=== PATIENT | male | born 1960 | race Caucasian/White ===

== ENCOUNTER 2020-09-20 11:31 | Inpatient (IN) | payer BC ==
[2020-09-20] MEDS ORDERED: ACETAMINOPHEN TAB 500 MG TAB PO STA (11:45)
--- NOTE | 2020-09-20 12:13 | ED ---
Weakness HPI - General Chief complaint: Weakness Stated complaint: Fall, Covid Symptoms Time Seen by Provider: 09/20/20 11:31 Source: patient, EMS, RN notes reviewed Mode of arrival: EMS - History of Present Illness Initial comments: This is a 60-year-old male was brought in by EMS today weakness that has been going on for 3 days also he follow-up of his toilet to the right side today. He denies any loss of consciousness or injury. He just generally feels weak he was found to have elevated temperature upon arrival. He denies any rhinorrhea earaches sore throat cough phlegm production dysuria hematuria. MD Complaint: generalized weakness - Related Data Home Medications Medication Instructions Recorded Confirmed Benazepril HCl [Lotensin] 40 mg PO DAILY 09/20/20 09/20/20 Metoprolol Tartrate [Lopressor] 50 mg PO DAILY 09/20/20 09/20/20 amLODIPine [Norvasc] 10 mg PO DAILY 09/20/20 09/20/20 glyBURIDE/METFORMIN HCL 1 tab PO QID 09/20/20 09/20/20 [Glucovance 2.5-500 mg] Allergies Allergy/AdvReac Type Severity Reaction Status Date / Time No Known Allergies Allergy Verified 09/20/20 12:44 Review of Systems ROS Statement: Those systems with pertinent positive or pertinent negative responses have been documented in the HPI. ROS Other: All systems not noted in ROS Statement are negative. Past Medical History Past Medical History: Diabetes Mellitus, Hyperlipidemia, Hypertension History of Any Multi-Drug Resistant Organisms: None Reported Past Surgical History: Appendectomy, Orthopedic Surgery Past Psychological History: No Psychological Hx Reported Smoking Status: Never smoker Past Alcohol Use History: None Reported Past Drug Use History: Marijuana General Exam - General Exam Comments Initial Comments: This is a well-developed well-nourished awake alert oriented 3 male General appearance: alert, in no apparent distress Head exam: Present: atraumatic, normocephalic, normal inspection Eye exam: Present: normal appearance, PERRL, EOMI. Absent: scleral icterus, conjunctival injection, periorbital swelling ENT exam: Present: mucous membranes dry Neck exam: Present: normal inspection. Absent: tenderness, meningismus, lymphadenopathy Respiratory exam: Present: normal lung sounds bilaterally. Absent: respiratory distress, wheezes, rales, rhonchi, stridor Cardiovascular Exam: Present: regular rate, normal rhythm, normal heart sounds. Absent: systolic murmur, diastolic murmur, rubs, gallop, clicks GI/Abdominal exam: Present: soft, normal bowel sounds. Absent: distended, tenderness, guarding, rebound, rigid Extremities exam: Present: normal inspection, full ROM, normal capillary refill. Absent: tenderness, pedal edema, joint swelling, calf tenderness Back exam: Present: normal inspection Neurological exam: Present: alert, oriented X3, CN II-XII intact Psychiatric exam: Present: normal affect, normal mood Skin exam: Present: warm, dry, intact, normal color. Absent: rash Course Vital Signs 09/20/20 09/20/20 09/20/20 11:38 12:30 13:00 Temperature 103.1 F H Pulse Rate 97 89 87 Respiratory 18 16 18 Rate Blood Pressure 149/68 146/70 136/73 O2 Sat by Pulse 96 93 L 94 L Oximetry 09/20/20 13:50 Temperature 100.3 F H Pulse Rate Respiratory Rate Blood Pressure O2 Sat by Pulse Oximetry Medical Decision Making - Medical Decision Making Patient does demonstrate clinical evidence of Covid 19. He does also have chronic anemia he did recently have a blood transfusion at another facility. No reports of any bleeding at this time. Patient will be admitted did discuss case with Dr. Loredo who did come see the patient in the emergency department. - Lab Data Result diagrams: 09/20/20 11:50 09/20/20 11:50 Lab Results 09/20/20 09/20/20 09/20/20 Range/Units 11:50 11:50 11:50 WBC 3.1 L (3.8-10.6) k/uL RBC 1.75 L (4.30-5.90) m/uL Hgb 7.3 L (13.0-17.5) gm/dL Hct 20.6 L (39.0-53.0) % MCV 117.9 H (80.0-100.0) fL MCH 41.8 H (25.0-35.0) pg MCHC 35.4 (31.0-37.0) g/dL RDW 17.6 H (11.5-15.5) % Plt Count 116 L (150-450) k/uL MPV 7.7 Neutrophils % 69 % Lymphocytes % 27 % Monocytes % 2 % Eosinophils % 0 % Basophils % 1 % Neutrophils # 2.1 (1.3-7.7) k/uL Lymphocytes # 0.9 L (1.0-4.8) k/uL Monocytes # 0.1 (0-1.0) k/uL Eosinophils # 0.0 (0-0.7) k/uL Basophils # 0.0 (0-0.2) k/uL Manual Slide Review Performed Poikilocytosis (manual Present Anisocytosis Slight Macrocytosis Marked A PT 10.0 (9.0-12.0) sec INR 1.0 (<1.2) APTT 28.9 (22.0-30.0) sec D-Dimer 4.00 H (<0.60) mg/L FEU Sodium 137 (137-145) mmol/L Potassium 4.0 (3.5-5.1) mmol/L Chloride 103 (98-107) mmol/L Carbon Dioxide 27 (22-30) mmol/L Anion Gap 7 mmol/L BUN 25 H (9-20) mg/dL Creatinine 0.91 (0.66-1.25) mg/dL Est GFR (CKD-EPI)AfAm >90 (>60 ml/min/1.73 sqM) Est GFR (CKD-EPI)NonAf >90 (>60 ml/min/1.73 sqM) Glucose 132 H (74-99) mg/dL Plasma Lactic Acid Ryne (0.7-2.0) mmol/L Calcium 8.6 (8.4-10.2) mg/dL Magnesium 1.7 (1.6-2.3) mg/dL Total Bilirubin 1.7 H (0.2-1.3) mg/dL AST 50 (17-59) U/L ALT 29 (4-49) U/L Alkaline Phosphatase 61 (38-126) U/L Lactate Dehydrogenase 2789 H (313-618) U/L Creatine Kinase 111 (55-170) U/L Troponin I (0.000-0.034) ng/mL C-Reactive Protein 79.3 H (<10.0) mg/L Total Protein 6.9 (6.3-8.2) g/dL Albumin 3.9 (3.5-5.0) g/dL Influenza Type A RNA (Not Detectd) Influenza Type B (PCR) (Not Detectd) 09/20/20 09/20/20 09/20/20 Range/Units 11:50 11:50 11:50 WBC (3.8-10.6) k/uL RBC (4.30-5.90) m/uL Hgb (13.0-17.5) gm/dL Hct (39.0-53.0) % MCV (80.0-100.0) fL MCH (25.0-35.0) pg MCHC (31.0-37.0) g/dL RDW (11.5-15.5) % Plt Count (150-450) k/uL MPV Neutrophils % % Lymphocytes % % Monocytes % % Eosinophils % % Basophils % % Neutrophils # (1.3-7.7) k/uL Lymphocytes # (1.0-4.8) k/uL Monocytes # (0-1.0) k/uL Eosinophils # (0-0.7) k/uL Basophils # (0-0.2) k/uL Manual Slide Review Poikilocytosis (manual Anisocytosis Macrocytosis PT (9.0-12.0) sec INR (<1.2) APTT (22.0-30.0) sec D-Dimer (<0.60) mg/L FEU Sodium (137-145) mmol/L Potassium (3.5-5.1) mmol/L Chloride (98-107) mmol/L Carbon Dioxide (22-30) mmol/L Anion Gap mmol/L BUN (9-20) mg/dL Creatinine (0.66-1.25) mg/dL Est GFR (CKD-EPI)AfAm (>60 ml/min/1.73 sqM) Est GFR (CKD-EPI)NonAf (>60 ml/min/1.73 sqM) Glucose (74-99) mg/dL Plasma Lactic Acid Ryne 1.3 (0.7-2.0) mmol/L Calcium (8.4-10.2) mg/dL Magnesium (1.6-2.3) mg/dL Total Bilirubin (0.2-1.3) mg/dL AST (17-59) U/L ALT (4-49) U/L Alkaline Phosphatase (38-126) U/L Lactate Dehydrogenase (313-618) U/L Creatine Kinase (55-170) U/L Troponin I 0.066 H* (0.000-0.034) ng/mL C-Reactive Protein (<10.0) mg/L Total Protein (6.3-8.2) g/dL Albumin (3.5-5.0) g/dL Influenza Type A RNA Not Detected (Not Detectd) Influenza Type B (PCR) Not Detected (Not Detectd) - EKG Data -: EKG Interpreted by Me EKG shows normal: sinus rhythm EKG Comments: Sinus rhythm a 95. Interval 166 QRS duration 136 QT since QTC 406/510 red bundle-branch block pattern - Radiology Data Radiology results: report reviewed (Imaging reviewed evidence of groundglass appearance consistent with covid 19 evidence of pulmonary embolism), image reviewed Disposition Clinical Impression: Viral syndrome, Febrile illness, acute, Chronic anemia, Elevated troponin I level, Generalized weakness Disposition: ADMITTED IP TO THIS [facility] Condition: Fair Referrals: Yrn Grider MD [Primary Care Provider] - 1-2 days
[2020-09-20 12:19] LABS: ALT 29 U/L (4-49); AST 50 U/L (17-59); African American GFR (CKD) >90 (>60 ml/min/1.73 sqM); Albumin 3.9 g/dL (3.5-5.0); Alkaline Phosphatase 61 U/L (38-126); Anion Gap 7 mmol/L; Blood Urea Nitrogen 25 mg/dL (9-20); C Reactive Protein 79.3 mg/L (<10.0); Calcium 8.6 mg/dL (8.4-10.2); Carbon Dioxide 27 mmol/L (22-30); Chloride 103 mmol/L (98-107); Creatine Kinase 111 U/L (55-170); Glucose 132 mg/dL (74-99); Magnesium 1.7 mg/dL (1.6-2.3); Non-African American GFR(CKD) >90 (>60 ml/min/1.73 sqM); Sodium 137 mmol/L (137-145); Total Bilirubin 1.7 mg/dL (0.2-1.3); Total Protein 6.9 g/dL (6.3-8.2)
--- NOTE | 2020-09-20 12:21 | XR ---
EXAMINATION TYPE: XR chest 1V portable DATE OF EXAM: 09/20/2020 COMPARISON: NONE HISTORY: Shortness of breath and weakness, suspected covid pneumonia TECHNIQUE: Single AP portable frontal upright view of the chest is obtained. FINDINGS: There is chronic parenchymal change bilaterally. Present without suspicious focal air spac e opacity, pleural effusion, or pneumothorax seen. The cardiac silhouette size is upper limits of no rmal with atherosclerotic change aortic knob. The osseous structures are intact. Overlying EKG lead s are present. IMPRESSION: Chronic changes without acute infiltrate identified.
[2020-09-20 12:30] LABS: LDH 2789 U/L (313-618)
[2020-09-20 12:32] LABS: Anisocytosis Slight; Basophils % (A) 1 %; Eosinophils % (A) 0 %; HCT 20.6 % (39.0-53.0); HGB 7.3 gm/dL (13.0-17.5); Lymphocytes # (A) 0.9 k/uL (1.0-4.8); Lymphocytes % (A) 27 %; MCH 41.8 pg (25.0-35.0); MCHC 35.4 g/dL (31.0-37.0); MCV 117.9 fL (80.0-100.0); Macrocytosis Marked; Mean Platelet Volume 7.7; Monocytes # (A) 0.1 k/uL (0-1.0); Monocytes % (A) 2 %; Neutrophils # (A) 2.1 k/uL (1.3-7.7); Neutrophils % (A) 69 %; Platelet Count 116 k/uL (150-450); RBC 1.75 m/uL (4.30-5.90); RDW 17.6 % (11.5-15.5); WBC 3.1 k/uL (3.8-10.6)
[2020-09-20 12:34] LABS: Partial Thromboplastin Time 28.9 sec (22.0-30.0)
[2020-09-20 13:03] LABS: Poikilocytosis (M) Present
--- NOTE | 2020-09-20 13:50 | CT ---
EXAMINATION TYPE: CT angio chest DATE OF EXAM: 09/20/2020 1:37 PM COMPARISON: Chest x-ray earlier today HISTORY: Elevated D dimer shortness of breath. CT DLP: 449.5 mGycm Automated exposure control for dose reduction was used. CONTRAST: CTA scan of the thorax is performed with IV Contrast, patient injected with 77 mL of Isovue 370, pulm onary embolism protocol. MIP images are created and reviewed. FINDINGS: LUNGS: Less well seen on x-ray versus CT, there are multifocal areas of groundglass opacity throughou t the right lower lobe with additional involvement of the central right mid lung and to lesser degree the right upper lobe. There is more prominent multifocal areas of groundglass opacity in the left up per to midlungS. No pleural effusion or pneumothorax seen bilaterally. No suspicious masses. MEDIASTINUM: There is satisfactory enhancement of the pulmonary artery and its branches, there is no CT evidence for pulmonary embolism. Prominent bilateral hilar lymph nodes. Prominent mediastinal lymp h nodes including elongated 3.0 x 1.0 cm subcarinal lymph node axial image 67. Severe three-vessel co ronary artery calcification. No thoracic aortic aneurysm or dissection. Bovine type arch which is nor mal variant. No pericardial effusion is seen. OTHER: Liver is diffusely low dense consistent with fatty infiltration. Large bridging osteophytes in thoracic spine noted with disc space preservation, correlate for DISH. IMPRESSION: 1. No CT evidence for acute pulmonary embolism. 2. Multifocal small areas of groundglass opacity bilaterally consistent with covid 19 infection not w ell seen on x-ray. Abnormal thoracic adenopathy presumed reactive.
[2020-09-20] MEDS ORDERED: PNEUMONIA PROTOCOL UTILIZED 1 EACH MISC PO PRN (14:25)
[2020-09-20] MEDS ORDERED: ACETAMINOPHEN TAB 325 MG TAB PO PRN (14:25)
[2020-09-20] MEDS ORDERED: NALOXONE 0.4 MG/ML 1 ML VIAL IV PRN (14:25)
--- NOTE | 2020-09-20 14:25 | ED ---
Medical Decision Making - Lab Data Result diagrams: 09/20/20 11:50 09/20/20 11:50 Lab Results 09/20/20 09/20/20 09/20/20 Range/Units 11:50 11:50 11:50 WBC 3.1 L (3.8-10.6) k/uL RBC 1.75 L (4.30-5.90) m/uL Hgb 7.3 L (13.0-17.5) gm/dL Hct 20.6 L (39.0-53.0) % MCV 117.9 H (80.0-100.0) fL MCH 41.8 H (25.0-35.0) pg MCHC 35.4 (31.0-37.0) g/dL RDW 17.6 H (11.5-15.5) % Plt Count 116 L (150-450) k/uL MPV 7.7 Neutrophils % 69 % Lymphocytes % 27 % Monocytes % 2 % Eosinophils % 0 % Basophils % 1 % Neutrophils # 2.1 (1.3-7.7) k/uL Lymphocytes # 0.9 L (1.0-4.8) k/uL Monocytes # 0.1 (0-1.0) k/uL Eosinophils # 0.0 (0-0.7) k/uL Basophils # 0.0 (0-0.2) k/uL Manual Slide Review Performed Poikilocytosis (manual Present Anisocytosis Slight Macrocytosis Marked A PT 10.0 (9.0-12.0) sec INR 1.0 (<1.2) APTT 28.9 (22.0-30.0) sec D-Dimer 4.00 H (<0.60) mg/L FEU Sodium 137 (137-145) mmol/L Potassium 4.0 (3.5-5.1) mmol/L Chloride 103 (98-107) mmol/L Carbon Dioxide 27 (22-30) mmol/L Anion Gap 7 mmol/L BUN 25 H (9-20) mg/dL Creatinine 0.91 (0.66-1.25) mg/dL Est GFR (CKD-EPI)AfAm >90 (>60 ml/min/1.73 sqM) Est GFR (CKD-EPI)NonAf >90 (>60 ml/min/1.73 sqM) Glucose 132 H (74-99) mg/dL Plasma Lactic Acid Ryne (0.7-2.0) mmol/L Calcium 8.6 (8.4-10.2) mg/dL Magnesium 1.7 (1.6-2.3) mg/dL Total Bilirubin 1.7 H (0.2-1.3) mg/dL AST 50 (17-59) U/L ALT 29 (4-49) U/L Alkaline Phosphatase 61 (38-126) U/L Lactate Dehydrogenase 2789 H (313-618) U/L Creatine Kinase 111 (55-170) U/L Troponin I (0.000-0.034) ng/mL C-Reactive Protein 79.3 H (<10.0) mg/L Total Protein 6.9 (6.3-8.2) g/dL Albumin 3.9 (3.5-5.0) g/dL Influenza Type A RNA (Not Detectd) Influenza Type B (PCR) (Not Detectd) 09/20/20 09/20/20 09/20/20 Range/Units 11:50 11:50 11:50 WBC (3.8-10.6) k/uL RBC (4.30-5.90) m/uL Hgb (13.0-17.5) gm/dL Hct (39.0-53.0) % MCV (80.0-100.0) fL MCH (25.0-35.0) pg MCHC (31.0-37.0) g/dL RDW (11.5-15.5) % Plt Count (150-450) k/uL MPV Neutrophils % % Lymphocytes % % Monocytes % % Eosinophils % % Basophils % % Neutrophils # (1.3-7.7) k/uL Lymphocytes # (1.0-4.8) k/uL Monocytes # (0-1.0) k/uL Eosinophils # (0-0.7) k/uL Basophils # (0-0.2) k/uL Manual Slide Review Poikilocytosis (manual Anisocytosis Macrocytosis PT (9.0-12.0) sec INR (<1.2) APTT (22.0-30.0) sec D-Dimer (<0.60) mg/L FEU Sodium (137-145) mmol/L Potassium (3.5-5.1) mmol/L Chloride (98-107) mmol/L Carbon Dioxide (22-30) mmol/L Anion Gap mmol/L BUN (9-20) mg/dL Creatinine (0.66-1.25) mg/dL Est GFR (CKD-EPI)AfAm (>60 ml/min/1.73 sqM) Est GFR (CKD-EPI)NonAf (>60 ml/min/1.73 sqM) Glucose (74-99) mg/dL Plasma Lactic Acid Ryne 1.3 (0.7-2.0) mmol/L Calcium (8.4-10.2) mg/dL Magnesium (1.6-2.3) mg/dL Total Bilirubin (0.2-1.3) mg/dL AST (17-59) U/L ALT (4-49) U/L Alkaline Phosphatase (38-126) U/L Lactate Dehydrogenase (313-618) U/L Creatine Kinase (55-170) U/L Troponin I 0.066 H* (0.000-0.034) ng/mL C-Reactive Protein (<10.0) mg/L Total Protein (6.3-8.2) g/dL Albumin (3.5-5.0) g/dL Influenza Type A RNA Not Detected (Not Detectd) Influenza Type B (PCR) Not Detected (Not Detectd) Disposition Clinical Impression: Viral syndrome, Febrile illness, acute, Chronic anemia, Elevated troponin I level, Generalized weakness, COVID-19 Disposition: ADMITTED IP TO THIS HOSP Condition: Fair Referrals: Yrn Grider MD [Primary Care Provider] - 1-2 days
[2020-09-20] MEDS ORDERED: SODIUM CHLORIDE 0.9% 1,000 ML IV SCH (14:30)
[2020-09-20] MEDS ORDERED: ASCORBIC ACID 500 MG TAB PO STA (14:32)
[2020-09-20] MEDS ORDERED: dexAMETHasone 2 MG TAB PO STA (14:33)
[2020-09-20] MEDS ORDERED: CHOLECALCIFEROL 1,000 UNIT TAB PO STA (14:36)
[2020-09-20] MEDS ORDERED: ZINC SULFATE 220 MG CAP PO STA (14:39)
[2020-09-20] MEDS ORDERED: SODIUM CHLORIDE 0.9% 1,000 ML IV STA (14:40)
[2020-09-20] MEDS: ACETAMINOPHEN TAB 325 MG TAB PO PRN (17:11)
[2020-09-20 17:15] LABS: Ferritin 1637.7 ng/mL (22.0-322.0)
[2020-09-20] MEDS: ALBUTEROL HFA INHALER INHALATION SCH ×2 (17:44→21:25)
[2020-09-20] MEDS ORDERED: HYDROcodone/APAP 5-325MG 1 EACH TAB PO PRN (18:31)
[2020-09-20] MEDS ORDERED: HYDROmorphone 0.5 MG/0.5 ML SYRINGE IVP PRN (18:31)
[2020-09-20 18:37] LABS: Glucose,Whole Blood 234 mg/dL (75-99)
[2020-09-20] MEDS: metFORMIN 500 MG TAB PO SCH (18:53)
[2020-09-20] MEDS: glipiZIDE 5 MG TAB PO SCH (18:54)
[2020-09-20] MEDS: SODIUM CHLORIDE 0.9% 1,000 ML IV SCH (19:06)
[2020-09-20] MEDS ORDERED: ENOXAPARIN 40 MG/0.4 ML SYRINGE SQ SCH (20:15)
[2020-09-20 21:42] LABS: Glucose,Whole Blood 240 mg/dL (75-99)
[2020-09-20] MEDS: ENOXAPARIN 40 MG/0.4 ML SYRINGE SQ SCH (22:06)
[2020-09-20] MEDS: INSULIN ASPART (NovoLOG) 100 UNIT/ML VIAL SQ SCH (22:06)
[2020-09-21] MEDS: ALBUTEROL HFA INHALER INHALATION SCH ×6 (00:01→19:23)
[2020-09-21] MEDS: glipiZIDE 5 MG TAB PO SCH ×5 (01:15→21:48)
[2020-09-21] MEDS: metFORMIN 500 MG TAB PO SCH ×5 (01:15→21:48)
[2020-09-21] MEDS: methylPREDNISolone SOD SUCCI 125 MG/2 ML VIAL IV SCH ×5 (01:15→23:12)
[2020-09-21] MEDS: ACETAMINOPHEN TAB 325 MG TAB PO PRN (01:25)
--- NOTE | 2020-09-21 01:56 | HP ---
HISTORY AND PHYSICAL DATE OF SERVICE: 09/20/2020 CHIEF COMPLAINTS: Weakness, fever, cough and COVID symptoms. HISTORY OF PRESENT ILLNESS: This 60-year-old gentleman with a past medical history of multiple medical problems including diabetes mellitus, hypertension, hyperlipidemia, history of anemia, history of appendectomy, being followed by Dr. Grider in the outpatient setting, was not feeling well over the past several days. The patient had some weakness, cough, fever. The patient was working in a plant and the patient came to [facility] and was admitted for further evaluation and treatment. The D-dimer was elevated. Chest x-ray showed bilateral COVID-like pneumonia with no evidence of pulmonary embolism. COVID-19 rapid test was negative. Patient admitted for further evaluation and treatment. Patient was running fever up to 100.3 and 101.2 degrees Fahrenheit. Infectious Disease evaluation has been sought. There is no history of any headache, loss of consciousness, seizures, hematochezia, melena, chest pain, palpitations at this time. PAST MEDICAL HISTORY: History of diabetes mellitus, hypertension, hyperlipidemia, history of anemia, history of appendectomy. MEDICATIONS: Medications prior to admission, home medications are: 1. Glucovance 1 p.o. q.i.d. 2. Lopressor 50 mg daily. 3. Lotensin 40 mg daily. 4. Norvasc 10 mg daily. ALLERGIES: None. FAMILY HISTORY: No history of heart disease or strokes in the family. SOCIAL HISTORY: No history of smoking, no history of alcohol intake. THC. REVIEW OF SYSTEMS: ENT: No diminished hearing or diminished vision. CARDIOVASCULAR SYSTEM: As mentioned earlier. RESPIRATORY SYSTEM: As mentioned earlier. GI: No nausea. : No dysuria. NERVOUS SYSTEM: No numbness or weakness. ALLERGY/IMMUNOLOGY: No history of asthma or hayfever. MUSCULOSKELETAL: As mentioned earlier. HEMATOLOGY: As mentioned earlier. ENDOCRINE: Diabetes mellitus. CONSTITUTIONAL: As mentioned earlier. DERMATOLOGY: Negative. RHEUMATOLOGY: Negative. PSYCHIATRY: As mentioned earlier. PHYSICAL EXAMINATION: The patient is alert and oriented x3. Pulse 83, blood pressure 148/77, respiration 18, temperature is 101.2, pulse ox 98% on room air. HEENT: Conjunctivae normal. NECK: No jugular venous distention. CARDIOVASCULAR: S1, S2 muffled. RESPIRATORY: Breath sounds diminished at the bases. A few scattered rhonchi and crackles. ABDOMEN: Soft, nontender. No mass palpable. LEGS: No edema, no swelling. NERVOUS SYSTEM: Higher function as mentioned earlier. Moves all 4 limbs. No focal motor or sensory deficits. LYMPHATICS: No lymphadenopathy of the neck, axillae or groin. SKIN: No ulcer, rash or bleeding. JOINTS: No active deforming arthropathy. LABS: WBC 3.1, hemoglobin 7.3, platelets 116 and macrocytosis. D-dimer is 4. Otherwise, total bilirubin is 1.7. LDH is 2789. Troponin 0.066. CRP 79.3. Procalcitonin 0.17. COVID-19 is positive. Flu is negative. ASSESSMENT: 1. Acute bilateral interstitial pneumonia possibly secondary to COVID-19 with possible sepsis, present on admission. 2. Fever secondary to possible infection, present on admission. 3. Troponin 0.066, rule out acute juh-RN-imvefyl-elevation myocardial infarction or myocarditis secondary to COVID-19. 4. Elevated procalcitonin. 5. Increased CRP. 6. Increased LDH. 7. Increased total bilirubin. 8. Elevated D-dimer without any evidence of pulmonary embolism. 9. Mild pancytopenia and severe anemia and macrocytosis. 10.History of chronic anemia. 11.History of diabetes mellitus type 2. 12.History of hypertension. 13.History of hyperlipidemia. 14.History of appendectomy. 15.History of degenerative joint disease. 16.Obesity with body mass index of 36.6. 17.FULL CODE. RECOMMENDATIONS AND DISCUSSION: This 60-year-old gentleman who presented with multiple complex medical issues, we will monitor the patient closely. Continue the current medications, continue symptomatic treatment. Will initiate dexamethasone, zinc, and other COVID related medications. I would also recommend Lovenox and I would also recommend infectious disease evaluation and consider the patient for possible remdesivir since the patient is currently running fever and prognosis guarded because of multiple complex medical issues. Further recommendations to follow. A copy of dictation forwarded to Dr. Grider who is the primary physician. LELIA / REJI: [id number] / JANENE
[2020-09-21 06:59] LABS: ALT 29 U/L (4-49); AST 48 U/L (17-59); African American GFR (CKD) >90 (>60 ml/min/1.73 sqM); Albumin 3.7 g/dL (3.5-5.0); Alkaline Phosphatase 57 U/L (38-126); Anion Gap 7 mmol/L; Blood Urea Nitrogen 33 mg/dL (9-20); Calcium 8.7 mg/dL (8.4-10.2); Carbon Dioxide 28 mmol/L (22-30); Chloride 103 mmol/L (98-107); Glucose 141 mg/dL (74-99); Non-African American GFR(CKD) 87 (>60 ml/min/1.73 sqM); Potassium 4.3 mmol/L (3.5-5.1); Sodium 138 mmol/L (137-145); Total Bilirubin 1.2 mg/dL (0.2-1.3); Total Protein 6.7 g/dL (6.3-8.2)
[2020-09-21 07:09] LABS: Anisocytosis Slight; Basophils % (A) 0 %; Eosinophils % (A) 0 %; Lymphocytes # (A) 0.7 k/uL (1.0-4.8); Lymphocytes % (A) 23 %; MCV 123.3 fL (80.0-100.0); Macrocytosis Marked; Mean Platelet Volume 8.1; Monocytes # (A) 0.1 k/uL (0-1.0); Monocytes % (A) 2 %; Neutrophils # (A) 2.3 k/uL (1.3-7.7); Neutrophils % (A) 74 %; Platelet Count 112 k/uL (150-450); RDW 18.6 % (11.5-15.5); WBC 3.1 k/uL (3.8-10.6)
[2020-09-21 07:14] LABS: HCT 19.7 % (39.0-53.0); HGB 6.9 gm/dL (13.0-17.5)
[2020-09-21 07:15] LABS: MCH 43.2 pg (25.0-35.0); MCHC 35.1 g/dL (31.0-37.0)
--- NOTE | 2020-09-21 07:27 | XR ---
EXAMINATION TYPE: XR chest 1V DATE OF EXAM: 09/21/2020 COMPARISON: 09/20/2020 HISTORY: Shortness of breath TECHNIQUE: Single frontal view of the chest is obtained. FINDINGS: There is left lower lobe infiltrate. Exam limited by technique and positioning. Peripheral infiltrates in the right suspected. Underlying COPD excluded. No sizable pneumothorax. Heart is enla rged. IMPRESSION: 1. Correlate for COPD and cardiomegaly. Exam limited by positioning and technique. Suspect left-sided infiltrates which may have progressed from prior exam.
[2020-09-21 07:38] LABS: LDH 2486 U/L (313-618)
[2020-09-21 07:39] LABS: C Reactive Protein 182.8 mg/L (<10.0)
[2020-09-21 07:55] LABS: Glucose,Whole Blood 183 mg/dL (75-99)
[2020-09-21] MEDS: INSULIN ASPART (NovoLOG) 100 UNIT/ML VIAL SQ SCH ×4 (08:56→21:30)
[2020-09-21] MEDS: ENOXAPARIN 40 MG/0.4 ML SYRINGE SQ SCH (08:58)
[2020-09-21] MEDS: amLODIPine 10 MG TAB PO SCH (09:00)
[2020-09-21] MEDS: SODIUM CHLORIDE 0.9% 1,000 ML IV SCH ×2 (09:00→23:16)
[2020-09-21] MEDS: METOPROLOL TARTRATE 50 MG TAB PO SCH (09:00)
[2020-09-21] MEDS: PANTOPRAZOLE 40 MG TABLET PO SCH (09:00)
[2020-09-21] MEDS ORDERED: dexAMETHasone 2 MG TAB PO SCH (09:00)
[2020-09-21] MEDS: lisinopriL 20 MG TAB PO SCH (09:00)
[2020-09-21] MEDS: ZINC SULFATE 220 MG CAP PO SCH (10:17)
[2020-09-21 10:27] LABS: Mixed Population RBC Present; Poikilocytosis (M) Present; RBC Fragments Present
--- NOTE | 2020-09-21 12:00 | ECHOF ---
Referral Reason:myocarditis? MEASUREMENTS -------- HEIGHT: 157.5 cm WEIGHT: 91.6 kg BP: RVIDd: 3.3 cm (< 3.3) IVSd: 1.3 cm (0.6 - 1.1) LVIDd: 4.5 cm (3.9 - 5.3) LVPWd: 1.6 cm (0.6 - 1.1) IVSs: 1.4 cm LVIDs: 3.8 cm LVPWs: 1.4 cm LA Diam: 3.9 cm (2.7 - 3.8) Ao Diam: 3.0 cm (2.0 - 3.7) AV Cusp: 1.9 cm (1.5 - 2.6) LA Diam: 4.3 cm (2.7 - 3.8) MV E Merrill: 0.88 m/s MV DecT: 142 ms MV A Merrill: 0.66 m/s MV E/A Ratio: 1.33 RAP: 5.00 mmHg RVSP: 32.75 mmHg FINDINGS -------- Sinus rhythm. This was a technically adequate study. The left ventricular size is normal. There is mild concentric left ventricular hypertrophy. Overa ll left ventricular systolic function is low-normal with, an EF between 50 - 55 %. The right ventricle is normal in size. The left atrial size is normal. The right atrial size is normal. There is mild aortic valve sclerosis. Mild mitral annular calcification present. Kvui-nx-gxwioofb mitral regurgitation is present. The tricuspid valve appears structurally normal. Mild tricuspid regurgitation present. Right vent ricular systolic pressure is normal at < 35 mmHg. There is no pulmonic regurgitation present. The aortic root size is normal. There is no pericardial effusion. CONCLUSIONS -------- 1. There is mild concentric left ventricular hypertrophy. 2. Overall left ventricular systolic function is low-normal with, an EF between 50 - 55 %. 3. The left atrial size is normal. 4. There is mild aortic valve sclerosis. 5. Xrob-hd-udvfmrpf mitral regurgitation is present. 6. Mild tricuspid regurgitation present. 7. There is no pericardial effusion. AGRICULTURE TECHNICIAN: Elizabeth Eli RDCS
[2020-09-21 12:27] LABS: Ferritin 1824.6 ng/mL (22.0-322.0)
[2020-09-21 12:44] LABS: Glucose,Whole Blood 231 mg/dL (75-99)
--- NOTE | 2020-09-21 14:45 | PN ---
PROGRESS NOTE DATE OF SERVICE: 09/21/2020 This is a 60-year-old gentleman who was admitted with weakness, fever and COVID symptoms, had possible bilateral interstitial pneumonia. The patient also continued to have fever also. Troponin is also elevated. Patient is being closely monitored at this time. The most recent chest x-ray which I reviewed personally showed evidence of bilateral infiltrates, which is rather confirmed by the CT scan of the chest. Infectious Disease evaluating the patient for possibility of Remdesivir. A 2-D echo with Doppler was done. Cardiology following the patient closely. Two-D echo with Doppler showed ejection fraction about 50% to 55%, mild to moderate mitral regurgitation also visualized. The patient also had chronic anemia and the exact etiology is indeterminate. The most recent hemoglobin is 6.8, will need transfusion at this time. Platelets are low also. The patient seems type of hypoplastic anemia because WBC is also 3.1 PAST MEDICAL HISTORY: Reviewed. REVIEW OF SYSTEMS: CARDIOVASCULAR SYSTEM: As mention earlier. RESPIRATORY: As mentioned earlier. GI: As mentioned earlier. : No dysuria. NERVOUS SYSTEM: No numbness or weakness. CURRENT MEDICATIONS: Reviewed and include: 1. Tylenol. 2. [place]. 3. Proventil. 4. Xanax. 5. Norvasc. 6. Rocephin. 7. Lovenox. 8. Glucotrol. 9. Dilaudid. 10.Lopressor. Doses are reviewed. PHYSICAL EXAM: Patient alert and oriented x3, pulse 71, blood pressure 100/60, respirations 16, temperature 97.2, pulse ox 97% on room air. HEENT: Conjunctivae normal. NECK: No jugular venous distension. CARDIOVASCULAR: S1, S2, muffled. RESPIRATORY SYSTEM: Breath sounds diminished at the bases, scattered rhonchi no crackles. ABDOMEN: Soft, nontender. NERVOUS SYSTEM: No focal deficits. Labs are noted. ASSESSMENT: 1. Acute bilateral interstitial pneumonia, possibly secondary to COVID-19, with possible sepsis, present on admission. 2. Fever secondary to possible COVID infection, present on admission. 3. Troponin 0.066. Rule out acute rmx-PA-rgflfxx-elevation myocardial infarction or myocardial secondary to COVID-19. 4. 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 5. Elevated D-dimer without any evidence of acute pulmonary embolism. 6. Elevated procalcitonin. 7. Increased CRP. 8. Increased LDH. 9. Increased total bilirubin. 10.Mild pancytopenia and severe anemia, macrocytosis. 11.History of chronic anemia. 12.Diabetes mellitus type 2. 13.Hypertension. 14.Hyperlipidemia. 15.History of appendectomy. 16.History of DJD. 17.Obesity with body mass of 36.6. 18.FULL CODE. RECOMMENDATION: Recommend to continue current medications, symptomatic treatment. Otherwise, will initiate usual medications for the COVID-19. Closely follow with Pulmonary. Broad- spectrum empiric antibiotics, otherwise Infectious Disease has been consulted. I would also recommend Hematology/Oncology consultation because of the worsening anemia at this time. The prognosis guarded. Further recommendations to follow. MMODL / IJN: [id number] /
[2020-09-21 17:51] LABS: Glucose,Whole Blood 164 mg/dL (75-99)
[2020-09-21] MEDS ORDERED: ALBUTEROL HFA INHALER INHALATION PRN (20:46)
[2020-09-21 21:01] LABS: Glucose,Whole Blood 107 mg/dL (75-99)
--- NOTE | 2020-09-21 22:41 | P.CONS ---
History of Present Illness - Reason for Consult Consult date: 09/21/20 covid-- remdisivir Requesting physician: Jennifer Loredo - Chief Complaint weakness x 3 days - History of Present Illness Patient is a 60-year-old male presenting to the ER at [facility] yesterday afternoon for evaluation of weakness that has been going on for 3 days before presentation to the hospital patient also mentioned that he fell off his toilet the right side today no loss of consciousness of injury patient has been complaining of generalized weakness no energy patient was noticed to be febrile on presentation to the hospital with a temperature of 103 degree for right patient did not recall any fever at home he did have mild tachycardia however the patient has been able to maintain his sats currently 98 to 95% on room air patient did have a leukopenia as well as lymphopenia he did have elevated D-dimer of 4 kidney function was normal ferritin elevated 1824 LDH was 2486 and a CRP of 79 blood cultures were -0.17 patient Covid test came back positive influenza testing was negative patient did have a chest x-ray chronic changes without acute infiltrate identified he did have a CT angiogram of the chest no evidence of acute pulmonary embolism with diffuse groundglass opacity bilateral considered COVID-19 infection, infectious was consulted for further management, patient chart was reviewed and he was started on Solu-Medrol Lovenox and zinc sulfate patient was not hypoxic and did not meet criteria for remdesivir initiation, at the time of elevation earlier this afternoon the patient has been feeling better with resolution of his fever Review of Systems Positive point has been mentioned in HPI rest of the systems are negative Past Medical History Past Medical History: Diabetes Mellitus, Hyperlipidemia, Hypertension Additional Past Medical History / Comment(s): anemia History of Any Multi-Drug Resistant Organisms: None Reported Past Surgical History: Appendectomy, Orthopedic Surgery Past Anesthesia/Blood Transfusion Reactions: No Reported Reaction Past Psychological History: No Psychological Hx Reported Smoking Status: Former smoker Past Alcohol Use History: None Reported Past Drug Use History: Marijuana - Past Family History Mother Additional Family Medical History / Comment(s): uterine cancer Medications and Allergies Home Medications Medication Instructions Recorded Confirmed Type Benazepril HCl [Lotensin] 40 mg PO DAILY 09/20/20 09/20/20 History Metoprolol Tartrate [Lopressor] 50 mg PO DAILY 09/20/20 09/20/20 History amLODIPine [Norvasc] 10 mg PO DAILY 09/20/20 09/20/20 History glyBURIDE/METFORMIN HCL 1 tab PO QID 09/20/20 09/20/20 History [Glucovance 2.5-500 mg] Allergies Allergy/AdvReac Type Severity Reaction Status Date / Time No Known Allergies Allergy Verified 09/20/20 12:44 Physical Exam Vitals: Vital Signs Temp Pulse Pulse Resp BP BP Pulse Ox 09/21/20 14:00 98.3 F 77 18 114/63 95 09/21/20 11:56 97.6 F 71 16 110/63 97 09/21/20 11:16 97.6 F 71 16 110/63 97 09/21/20 10:45 98.2 F 71 18 116/68 98 09/21/20 10:35 98.5 F 70 20 106/52 97 09/21/20 07:51 98.5 F 77 18 135/73 96 09/21/20 05:50 98.4 F 77 16 137/69 95 09/21/20 01:30 100.3 F H 96 20 138/57 98 09/20/20 20:30 77 18 131/75 97 09/20/20 16:40 101.2 F H 83 18 148/77 98 09/20/20 16:00 82 18 130/70 98 09/20/20 15:34 78 18 137/72 95 Intake and Output 09/20/20 09/21/20 09/21/20 22:59 06:59 14:59 Intake Total 0 Balance 0 Intake: Blood Product 0 Rc As-1 Unit 0 [id number] Other: # Voids 1 Weight 99.79 kg GENERAL DESCRIPTION: Middle-aged male lying in bed, no distress. No tachypnea or accessory muscle of respiration use. HEENT: Shows Pallor , no scleral icterus. Oral mucous membrane is dry. NECK: Trachea central, no thyromegaly. LUNGS: Unlabored breathing. Decreased breath sound at the base. No wheeze or crackle. HEART: S1, S2, regular rate and rhythm. ABDOMEN: Soft, no tenderness , guarding or rigidity EXTREMITIES: No edema of feet. SKIN: No rash, no masses palpable. NEUROLOGICAL: The patient is awake, alert, oriented x3, mood and affect normal. Results CBC & Chem 7: 09/21/20 05:23 09/21/20 05:23 Labs: Abnormal Lab Results - Last 24 Hours (Table) 09/20/20 09/20/20 09/20/20 Range/Units 11:50 11:50 15:33 WBC (3.8-10.6) k/uL RBC (4.30-5.90) m/uL Hgb (13.0-17.5) gm/dL Hct (39.0-53.0) % MCV (80.0-100.0) fL MCH (25.0-35.0) pg RDW (11.5-15.5) % Plt Count (150-450) k/uL Lymphocytes # (1.0-4.8) k/uL Macrocytosis D-Dimer (<0.60) mg/L FEU BUN (9-20) mg/dL Glucose (74-99) mg/dL POC Glucose (mg/dL) (75-99) mg/dL Ferritin 1637.7 H (22.0-322.0) ng/mL Lactate Dehydrogenase (313-618) U/L Troponin I 0.075 H* (0.000-0.034) ng/mL C-Reactive Protein (<10.0) mg/L Procalcitonin 0.17 H (0.02-0.09) ng/mL Coronavirus (PCR) (Not Detectd) Crossmatch 09/20/20 09/20/20 09/20/20 Range/Units 17:20 18:19 18:36 WBC (3.8-10.6) k/uL RBC (4.30-5.90) m/uL Hgb (13.0-17.5) gm/dL Hct (39.0-53.0) % MCV (80.0-100.0) fL MCH (25.0-35.0) pg RDW (11.5-15.5) % Plt Count (150-450) k/uL Lymphocytes # (1.0-4.8) k/uL Macrocytosis D-Dimer (<0.60) mg/L FEU BUN (9-20) mg/dL Glucose (74-99) mg/dL POC Glucose (mg/dL) 234 H (75-99) mg/dL Ferritin (22.0-322.0) ng/mL Lactate Dehydrogenase (313-618) U/L Troponin I 0.079 H* (0.000-0.034) ng/mL C-Reactive Protein (<10.0) mg/L Procalcitonin (0.02-0.09) ng/mL Coronavirus (PCR) Detected A (Not Detectd) Crossmatch 09/20/20 09/21/20 09/21/20 Range/Units 21:41 05:23 05:23 WBC 3.1 L (3.8-10.6) k/uL RBC 1.60 L (4.30-5.90) m/uL Hgb 6.9 L* (13.0-17.5) gm/dL Hct 19.7 L* (39.0-53.0) % MCV 123.3 H D (80.0-100.0) fL MCH 43.2 H (25.0-35.0) pg RDW 18.6 H (11.5-15.5) % Plt Count 112 L (150-450) k/uL Lymphocytes # 0.7 L (1.0-4.8) k/uL Macrocytosis Marked A D-Dimer 1.14 H (<0.60) mg/L FEU BUN (9-20) mg/dL Glucose (74-99) mg/dL POC Glucose (mg/dL) 240 H (75-99) mg/dL Ferritin (22.0-322.0) ng/mL Lactate Dehydrogenase (313-618) U/L Troponin I (0.000-0.034) ng/mL C-Reactive Protein (<10.0) mg/L Procalcitonin (0.02-0.09) ng/mL Coronavirus (PCR) (Not Detectd) Crossmatch 09/21/20 09/21/20 09/21/20 Range/Units 05:23 07:53 08:47 WBC (3.8-10.6) k/uL RBC (4.30-5.90) m/uL Hgb (13.0-17.5) gm/dL Hct (39.0-53.0) % MCV (80.0-100.0) fL MCH (25.0-35.0) pg RDW (11.5-15.5) % Plt Count (150-450) k/uL Lymphocytes # (1.0-4.8) k/uL Macrocytosis D-Dimer (<0.60) mg/L FEU BUN 33 H (9-20) mg/dL Glucose 141 H (74-99) mg/dL POC Glucose (mg/dL) 183 H (75-99) mg/dL Ferritin 1824.6 H (22.0-322.0) ng/mL Lactate Dehydrogenase 2486 H (313-618) U/L Troponin I (0.000-0.034) ng/mL C-Reactive Protein 182.8 H (<10.0) mg/L Procalcitonin (0.02-0.09) ng/mL Coronavirus (PCR) (Not Detectd) Crossmatch See Detail 09/21/20 Range/Units 12:43 WBC (3.8-10.6) k/uL RBC (4.30-5.90) m/uL Hgb (13.0-17.5) gm/dL Hct (39.0-53.0) % MCV (80.0-100.0) fL MCH (25.0-35.0) pg RDW (11.5-15.5) % Plt Count (150-450) k/uL Lymphocytes # (1.0-4.8) k/uL Macrocytosis D-Dimer (<0.60) mg/L FEU BUN (9-20) mg/dL Glucose (74-99) mg/dL POC Glucose (mg/dL) 231 H (75-99) mg/dL Ferritin (22.0-322.0) ng/mL Lactate Dehydrogenase (313-618) U/L Troponin I (0.000-0.034) ng/mL C-Reactive Protein (<10.0) mg/L Procalcitonin (0.02-0.09) ng/mL Coronavirus (PCR) (Not Detectd) Crossmatch Assessment and Plan Assessment: -patient presented to hospital generalized weakness no energy did have a fall in this patient who was noticed to be febrile on presentation to the hospital with evidence of diffuse groundglass opacities on the CT angiogram of the chest that was negative for PE likely secondary to acute COVID-19 pneumonia, and this patient able to maintain his O2 sats without the need for supplemental oxygen , patient did drop his hemoglobin and was anemic on presentation but denies having any dark tarry stool or bleeding from any part of the body (1) COVID-19 Current Visit: Yes Status: Acute Code(s): U07.1 - COVID-19 SNOMED Code(s): 459081351 Plan: 1-patient will be treated with Solu-Medrol, will decrease the dose of Lovenox in view of drop in his hemoglobin hematology oncology has been consulted and will leave further management of anticoagulation to them, 2-patient will monitor closely if develop any hypoxemia or worsening respiratory status may consider starting remdesivir currently does not meet criteria for remdesivir per the hospital policy 3-droplet isolation and respiratory support We will follow on clinical condition and cultures to further adjust medication if needed Thank you for this consultation we will follow the patient along with you Time with Patient: Greater than 30
[2020-09-21] MEDS: ALPRAZolam 0.25 MG TAB PO PRN (23:12)
[2020-09-22 06:06] LABS: Glucose,Whole Blood 185 mg/dL (75-99)
[2020-09-22] MEDS: PANTOPRAZOLE 40 MG TABLET PO SCH (06:41)
[2020-09-22] MEDS: methylPREDNISolone SOD SUCCI 125 MG/2 ML VIAL IV SCH ×3 (06:42→17:49)
[2020-09-22] MEDS: INSULIN ASPART (NovoLOG) 100 UNIT/ML VIAL SQ SCH ×4 (06:42→22:15)
--- NOTE | 2020-09-22 06:58 | CONS ---
CONSULTATION Mr. Rivas is a 60-year-old gentleman with history of hypertension, diabetes, hyperlipidemia, and also chronic anemia being followed by Dr. Grider in the outpatient setting. The patient is admitted now to the hospital with complaints of not feeling well and generalized weakness for several days. The patient had fever and also cough. Apparently, he fell off his toilet, but did not have any significant injuries. No history of any loss of consciousness. On admission, the patient was found to be anemic. Chest x-ray showed evidence of bilateral pneumonia consistent with COVID infection. His COVID test was positive. He has been having temperatures up to 100 to 101 degrees. Denies any chest pain or palpitations. Denies any hematochezia. His troponins are mildly positive, but the pattern is not consistent with acute coronary injury. The information is gathered mostly from the chart and consultation notes. The patient is not personally examined to avoid exposure to COVID infection. PAST MEDICAL HISTORY: Significant for hypertension, hyperlipidemia, chronic anemia, and also diabetes mellitus. MEDICATIONS: His medications prior to admission include Lopressor, Lotensin and Norvasc. ALLERGIES: Nil known. SOCIAL HISTORY: No history of alcohol abuse or smoking. REVIEW OF SYSTEMS: As per the chart. PHYSICAL EXAMINATION: Physical examination at this time reveals vital signs being normal. The patient is not personally examined. Information is gathered from the legal consultant notes. Apparently, cardiac examination reveals normal heart sounds without any murmurs. Apparently, breath sounds are diminished at the bases. Apparently, patient does not have any focal neurological deficits. IMPRESSION: 1. COVID pneumonia. 2. Anemia, which seemed to be chronic. 3. Abnormal troponin values with normal EKG. The pattern is not consistent with acute myocardial injury pattern, could be related to hypoxia and anemia. 4. Diabetes mellitus, hypertension and multiple medical issues. PLAN: At this point, we will get an echocardiogram to rule out any segmental wall motion defects. If echo is normal at this point, no further cardiac intervention and we will be following as needed. MMODL / IJN: [id number] /
[2020-09-22] MEDS: ALBUTEROL HFA INHALER INHALATION SCH ×4 (07:23→19:48)
[2020-09-22 09:05] LABS: ALT 35 U/L (4-49); AST 60 U/L (17-59); African American GFR (CKD) >90 (>60 ml/min/1.73 sqM); Alkaline Phosphatase 53 U/L (38-126); Anion Gap 9 mmol/L; Blood Urea Nitrogen 43 mg/dL (9-20); Calcium 9.1 mg/dL (8.4-10.2); Carbon Dioxide 24 mmol/L (22-30); Chloride 104 mmol/L (98-107); Glucose 211 mg/dL (74-99); Non-African American GFR(CKD) 78 (>60 ml/min/1.73 sqM); Potassium 4.2 mmol/L (3.5-5.1); Sodium 137 mmol/L (137-145); Total Bilirubin 1.4 mg/dL (0.2-1.3); Total Protein 7.2 g/dL (6.3-8.2)
[2020-09-22 09:24] LABS: C Reactive Protein 156.4 mg/L (<10.0); LDH 2475 U/L (313-618)
[2020-09-22 09:26] LABS: Anisocytosis Moderate; Basophils % (A) 0 %; Eosinophils % (A) 0 %; HCT 25.3 % (39.0-53.0); HGB 8.6 gm/dL (13.0-17.5); Lymphocytes # (A) 0.7 k/uL (1.0-4.8); Lymphocytes % (A) 16 %; MCH 38.8 pg (25.0-35.0); MCHC 33.9 g/dL (31.0-37.0); MCV 114.6 fL (80.0-100.0); Macrocytosis Marked; Mean Platelet Volume 9.9; Monocytes # (A) 0.1 k/uL (0-1.0); Monocytes % (A) 3 %; Neutrophils # (A) 3.3 k/uL (1.3-7.7); Neutrophils % (A) 80 %; Platelet Count 113 k/uL (150-450); RBC 2.21 m/uL (4.30-5.90); RDW 22.8 % (11.5-15.5); WBC 4.2 k/uL (3.8-10.6)
[2020-09-22 10:04] LABS: Poikilocytosis (M) Present; Polychromasia Present
[2020-09-22 10:05] LABS: Basophilic Stippling Present
[2020-09-22] MEDS: amLODIPine 10 MG TAB PO SCH (10:27)
[2020-09-22] MEDS: lisinopriL 20 MG TAB PO SCH (10:28)
[2020-09-22] MEDS: ENOXAPARIN 40 MG/0.4 ML SYRINGE SQ SCH (10:28)
[2020-09-22] MEDS: glipiZIDE 5 MG TAB PO SCH ×4 (10:28→22:14)
[2020-09-22] MEDS: metFORMIN 500 MG TAB PO SCH ×4 (10:29→22:14)
[2020-09-22] MEDS: METOPROLOL TARTRATE 50 MG TAB PO SCH (10:29)
[2020-09-22] MEDS: ZINC SULFATE 220 MG CAP PO SCH (10:30)
[2020-09-22] MEDS: SODIUM CHLORIDE 0.9% 1,000 ML IV SCH (10:30)
[2020-09-22 11:52] LABS: Glucose,Whole Blood 180 mg/dL (75-99)
--- NOTE | 2020-09-22 15:00 | P.PN ---
Subjective Progress Note Date: 09/22/20 HISTORY OF PRESENT ILLNESS Patient is a 60-year-old male presenting to the ER at [facility] yesterday afternoon for evaluation of weakness that has been going on for 3 days before presentation to the hospital patient also mentioned that he fell off his toilet the right side today no loss of consciousness of injury patient has been complaining of generalized weakness no energy patient was noticed to be febrile on presentation to the hospital with a temperature of 103 degree for right patient did not recall any fever at home he did have mild tachycardia however the patient has been able to maintain his sats currently 98 to 95% on room air patient did have a leukopenia as well as lymphopenia he did have elevated D-dimer of 4 kidney function was normal ferritin elevated 1824 LDH was 2486 and a CRP of 79 blood cultures were -0.17 patient Covid test came back positive influenza testing was negative patient did have a chest x-ray chronic changes without acute infiltrate identified he did have a CT angiogram of the chest no evidence of acute pulmonary embolism with diffuse groundglass opacity bilateral considered COVID-19 infection, infectious was consulted for further management, patient chart was reviewed and he was started on Solu-Medrol Lovenox and zinc sulfate patient was not hypoxic and did not meet criteria for remdesivir initiation, at the time of elevation earlier this afternoon the patient has been feeling better with resolution of his fever 09/22: Patient is seen today on the cardiac stepdown unit in follow-up. Patient denies having any fever or chills. No cough or shortness of breath. He does not have any abdominal pain, nausea, vomiting or diarrhea. He states in general he is feeling much better. Patient has been afebrile for greater than 24 hours. Repeat blood work reveals Marilia BC 4.2, hemoglobin 8.6, platelet count 113, lymphocytes 0.7. D-dimer 1.35. Electrolytes normal, creatinine 1.04. PHYSICAL EXAMINATION Gen: This is a 60-year-old male. He is resting in bed and appears to be comfortable. No acute distress noted. No respiratory distress. VS: Afebrile, heart rate 92, blood pressure 134/60, pulse ox 94% on room air. HEENT: Head is atraumatic, normocephalic. Pupils equal, round. Sclerae is anicteric. NECK: Supple. No JVD. No lymphadenopathy. No thyromegaly. LUNGS: Diminished at the bases. No wheezes or rhonchi. No intercostal retractions. HEART: Regular rate and rhythm. No murmur. ABDOMEN: Soft. Bowel sounds are present. No masses. No tenderness. EXTREMITIES: No pedal edema. No calf tenderness. NEUROLOGICAL: Patient is awake, alert and oriented x3. Cranial nerves 2 through 12 are grossly intact. ASSESSMENT Covid 19 infection Lymphopenia Elevated inflammatory markers PLAN Continue Solu-Medrol, Lovenox, zinc Continue ceftriaxone Patient does not meet criteria for Remdesivir Continue current treatment plan The above dictated assessment and findings were discussed with Dr. Ford. The impression and plan of care have been directed as dictated. Annmarie Poe nurse practitioner acting as scribe for Dr. Ford. Objective - Vital Signs Vital signs: Vital Signs Temp 98.5 F 09/22/20 04:00 Pulse 95 09/22/20 08:00 Resp 22 09/22/20 08:00 BP 156/72 09/22/20 08:00 Pulse Ox 95 09/22/20 08:00 Intake & Output 09/21/20 09/22/20 09/22/20 18:59 06:59 18:59 Intake Total 532 480 Balance 532 480 Weight 103 kg Intake: Oral 222 480 Blood Product 310 Rc As-1 Unit 310 [id number] Other: Voiding Method Toilet # Voids 0 1 # Bowel Movements 0 1 - Labs CBC & Chem 7: 09/22/20 07:58 09/22/20 07:58 Labs: Abnormal Lab Results - Last 24 Hours (Table) 09/20/20 09/21/20 09/21/20 Range/Units 11:50 17:36 21:00 RBC (4.30-5.90) m/uL Hgb (13.0-17.5) gm/dL Hct (39.0-53.0) % MCV (80.0-100.0) fL MCH (25.0-35.0) pg RDW (11.5-15.5) % Plt Count (150-450) k/uL Lymphocytes # (1.0-4.8) k/uL Macrocytosis D-Dimer (<0.60) mg/L FEU BUN (9-20) mg/dL Glucose (74-99) mg/dL POC Glucose (mg/dL) 164 H 107 H (75-99) mg/dL Total Bilirubin (0.2-1.3) mg/dL AST (17-59) U/L Lactate Dehydrogenase (313-618) U/L C-Reactive Protein (<10.0) mg/L Coronavirus (PCR) Detected A (Not Detected) 09/22/20 09/22/20 09/22/20 Range/Units 06:04 07:58 07:58 RBC 2.21 L (4.30-5.90) m/uL Hgb 8.6 L D (13.0-17.5) gm/dL Hct 25.3 L (39.0-53.0) % MCV 114.6 H D (80.0-100.0) fL MCH 38.8 H (25.0-35.0) pg RDW 22.8 H (11.5-15.5) % Plt Count 113 L (150-450) k/uL Lymphocytes # 0.7 L (1.0-4.8) k/uL Macrocytosis Marked A D-Dimer 1.35 H (<0.60) mg/L FEU BUN (9-20) mg/dL Glucose (74-99) mg/dL POC Glucose (mg/dL) 185 H (75-99) mg/dL Total Bilirubin (0.2-1.3) mg/dL AST (17-59) U/L Lactate Dehydrogenase (313-618) U/L C-Reactive Protein (<10.0) mg/L Coronavirus (PCR) (Not Detected) 09/22/20 09/22/20 Range/Units 07:58 11:51 RBC (4.30-5.90) m/uL Hgb (13.0-17.5) gm/dL Hct (39.0-53.0) % MCV (80.0-100.0) fL MCH (25.0-35.0) pg RDW (11.5-15.5) % Plt Count (150-450) k/uL Lymphocytes # (1.0-4.8) k/uL Macrocytosis D-Dimer (<0.60) mg/L FEU BUN 43 H (9-20) mg/dL Glucose 211 H (74-99) mg/dL POC Glucose (mg/dL) 180 H (75-99) mg/dL Total Bilirubin 1.4 H (0.2-1.3) mg/dL AST 60 H (17-59) U/L Lactate Dehydrogenase 2475 H (313-618) U/L C-Reactive Protein 156.4 H (<10.0) mg/L Coronavirus (PCR) (Not Detected) Microbiology - Last 24 Hours (Table) 09/20/20 12:19 Blood Culture - Preliminary Blood No Growth after 48 hours
[2020-09-22 16:42] LABS: Glucose,Whole Blood 123 mg/dL (75-99)
--- NOTE | 2020-09-22 17:06 | P.CONS ---
History of Present Illness - Reason for Consult Consult date: 09/22/20 Macrocytic Anemia Requesting physician: Jennifer Loredo - Chief Complaint weakness - History of Present Illness Mr. Rivas is a pleasant 60 year old male patient with known medical history of diabetes, hyperlipidemia, hypertension who was originally admitted with persistent generalized weakness. On presentation to ED his temp was 103. Positive COVID-19. Hematology has been consulted regarding cytopenias. Review of Systems All systems: negative Constitutional: Reports as per HPI Past Medical History Past Medical History: Diabetes Mellitus, Hyperlipidemia, Hypertension Additional Past Medical History / Comment(s): anemia History of Any Multi-Drug Resistant Organisms: None Reported Past Surgical History: Appendectomy, Orthopedic Surgery Past Anesthesia/Blood Transfusion Reactions: No Reported Reaction Past Psychological History: No Psychological Hx Reported Smoking Status: Former smoker Past Alcohol Use History: None Reported Past Drug Use History: Marijuana - Past Family History Mother Additional Family Medical History / Comment(s): uterine cancer Medications and Allergies Home Medications Medication Instructions Recorded Confirmed Type Benazepril HCl [Lotensin] 40 mg PO DAILY 09/20/20 09/20/20 History Metoprolol Tartrate [Lopressor] 50 mg PO DAILY 09/20/20 09/20/20 History amLODIPine [Norvasc] 10 mg PO DAILY 09/20/20 09/20/20 History glyBURIDE/METFORMIN HCL 1 tab PO QID 09/20/20 09/20/20 History [Glucovance 2.5-500 mg] Apixaban [Eliquis] 5 mg PO BID #60 tab 09/23/20 Rx Allergies Allergy/AdvReac Type Severity Reaction Status Date / Time No Known Allergies Allergy Verified 09/20/20 12:44 Physical Exam Vitals: Vital Signs Temp Pulse Resp BP Pulse Ox 09/22/20 16:00 100.2 F H 84 20 125/62 91 L 09/22/20 14:00 84 09/22/20 08:00 95 22 156/72 95 09/22/20 04:00 98.5 F 92 16 134/60 94 L 09/22/20 02:00 18 09/21/20 23:10 99.6 F 86 18 135/66 93 L 09/21/20 20:00 86 18 09/21/20 19:51 99.2 F 90 18 140/61 95 Intake and Output 1209/22/20 09/22/20 06:59 14:59 22:59 Intake Total 480 Balance 480 Intake: Oral 480 Other: # Voids 0 1 # Bowel Movements 0 1 Weight 103 kg - Constitutional General appearance: cooperative, no acute distress - EENT Eyes: EOMI, PERRLA ENT: NA/AT, normal oropharynx - Neck Neck: normal ROM - Respiratory Respiratory: bilateral: CTA, rhonchi - Cardiovascular Rhythm: regularly irregular - Gastrointestinal General gastrointestinal: soft - Integumentary Integumentary: pale - Neurologic Neurologic: CNII-XII intact - Musculoskeletal Musculoskeletal: generalized weakness - Psychiatric Psychiatric: A&O x's 3, appropriate affect, intact judgment & insight Results CBC & Chem 7: 09/23/20 07:45 09/23/20 07:45 Labs: Abnormal Lab Results - Last 24 Hours (Table) 09/20/20 09/21/20 09/21/20 Range/Units 11:50 17:36 21:00 RBC (4.30-5.90) m/uL Hgb (13.0-17.5) gm/dL Hct (39.0-53.0) % MCV (80.0-100.0) fL MCH (25.0-35.0) pg RDW (11.5-15.5) % Plt Count (150-450) k/uL Lymphocytes # (1.0-4.8) k/uL Macrocytosis D-Dimer (<0.60) mg/L FEU BUN (9-20) mg/dL Glucose (74-99) mg/dL POC Glucose (mg/dL) 164 H 107 H (75-99) mg/dL Ferritin (22.0-322.0) ng/mL Total Bilirubin (0.2-1.3) mg/dL AST (17-59) U/L Lactate Dehydrogenase (313-618) U/L C-Reactive Protein (<10.0) mg/L Coronavirus (PCR) Detected A (Not Detected) 09/22/20 09/22/20 09/22/20 Range/Units 06:04 07:58 07:58 RBC 2.21 L (4.30-5.90) m/uL Hgb 8.6 L D (13.0-17.5) gm/dL Hct 25.3 L (39.0-53.0) % MCV 114.6 H D (80.0-100.0) fL MCH 38.8 H (25.0-35.0) pg RDW 22.8 H (11.5-15.5) % Plt Count 113 L (150-450) k/uL Lymphocytes # 0.7 L (1.0-4.8) k/uL Macrocytosis Marked A D-Dimer 1.35 H (<0.60) mg/L FEU BUN (9-20) mg/dL Glucose (74-99) mg/dL POC Glucose (mg/dL) 185 H (75-99) mg/dL Ferritin (22.0-322.0) ng/mL Total Bilirubin (0.2-1.3) mg/dL AST (17-59) U/L Lactate Dehydrogenase (313-618) U/L C-Reactive Protein (<10.0) mg/L Coronavirus (PCR) (Not Detected) 09/22/20 09/22/20 09/22/20 Range/Units 07:58 11:51 16:41 RBC (4.30-5.90) m/uL Hgb (13.0-17.5) gm/dL Hct (39.0-53.0) % MCV (80.0-100.0) fL MCH (25.0-35.0) pg RDW (11.5-15.5) % Plt Count (150-450) k/uL Lymphocytes # (1.0-4.8) k/uL Macrocytosis D-Dimer (<0.60) mg/L FEU BUN 43 H (9-20) mg/dL Glucose 211 H (74-99) mg/dL POC Glucose (mg/dL) 180 H 123 H (75-99) mg/dL Ferritin 2882.0 H (22.0-322.0) ng/mL Total Bilirubin 1.4 H (0.2-1.3) mg/dL AST 60 H (17-59) U/L Lactate Dehydrogenase 2475 H (313-618) U/L C-Reactive Protein 156.4 H (<10.0) mg/L Coronavirus (PCR) (Not Detected) Microbiology - Last 24 Hours (Table) 09/20/20 12:19 Blood Culture - Preliminary Blood No Growth after 48 hours Assessment and Plan (1) Macrocytic anemia Narrative/Plan: Anemia work-up has been ordered at this time to assess for other causes of anemia. Current Visit: Yes Status: Acute Code(s): D53.9 - NUTRITIONAL ANEMIA, UNSPECIFIED SNOMED Code(s): 57068826 (2) Thrombocytopenia Narrative/Plan: Likely secondary to COVID-19 virus Should improve with recovery of virus Current Visit: Yes Status: Acute Code(s): D69.6 - THROMBOCYTOPENIA, UNSPECIFIED SNOMED Code(s): 810654829 (3) COVID-19 Current Visit: Yes Status: Acute Code(s): U07.1 - COVID-19 SNOMED Code(s): 892151841 (4) Febrile illness, acute Current Visit: Yes Status: Acute Code(s): R50.9 - FEVER, UNSPECIFIED SNOMED Code(s): 397188248 Plan: Will continue to follow and await bicytopenia work-up Supportive care in the interim Care from primary team and other sprecialties Physician Attest: I have completed the full history and physical and agree with above dictation, dictated as a scribe.
--- NOTE | 2020-09-22 17:43 | PN ---
PROGRESS NOTE DATE OF SERVICE: 09/22/2020 This 60-year-old gentleman admitted with weakness and Covid symptoms. The patient had acute bilateral interstitial pneumonia. Infectious Disease has seen the patient and following the patient closely. The patient was not given Remdesivir by Infectious Disease. The patient is on IV steroids. Past medical history reviewed. REVIEW OF SYSTEMS: Review of systems could not be taken, the patient is confused. CURRENT MEDICATIONS: Reviewed and include: 1. Tylenol. 2. Carlton. 3. Ventolin. 4. Xanax. 5. Norvasc. 6. Rocephin. 7. Dilaudid. 9. Doses reviewed. PHYSICAL EXAM: Patient is alert, oriented x2. Pulse 92. Blood pressure 130/60, respirations 16, temperature 98.5, pulse ox 93% on room air. HEENT: Conjunctivae normal. NECK: No JVD. CARDIOVASCULAR: S1, S2 muffled. RESPIRATORY SYSTEM: Breath sounds diminished at the bases. Bilateral scattered rhonchi and crackles. ABDOMEN: Soft, nontender. LEGS are no edema. No swelling. NERVOUS SYSTEM: No focal deficits. LABS: Hemoglobin 8.6, platelets are 113. D-dimer is 1.35. Inflammatory markers are elevated at this time. LDH is 2457. C-reactive protein is 156. ASSESSMENT: 1. Acute bilateral interstitial pneumonia possibly secondary to Covid 19 pneumonia with possible sepsis present on admission. 2. Fever, secondary to possible Covid-19 infection, present on admission. 3. Troponin 0.066. Rule out acute [id number]-elevation myocardial infarction or myocarditis secondary to Covid-19. 4. 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 5. Elevated D-dimer without any evidence of acute pulmonary embolism. 6. Elevated procalcitonin. 7. Increased CRP. 8. Increased LDH. 9. Increased bilirubin. 10.Mild pancytopenia with severe anemia, macrocytic. 11.History of chronic anemia. 12.Diabetes mellitus type 2. 13.Hypertension. 14.Hyperlipidemia. 15.History of appendectomy. 16.History of degenerative joint disease. 17.Obesity with body mass of 36.6. 18.FULL CODE. RECOMMENDATIONS AND DISCUSSION: Recommend to continue current medications, management and symptomatic treatment. Otherwise at this time, I recommended hematology/oncology evaluation. The chest x-ray repeated yesterday showed significant lesions on the left side. We will continue to monitor. A CTA showed no evidence of pulmonary embolism, extensive bilateral interstitial pneumonia, suggestive of Covid-19 is being noted. MMODL / IJN: [id number] / MTDD
[2020-09-22] MEDS: ACETAMINOPHEN TAB 325 MG TAB PO PRN (19:01)
--- NOTE | 2020-09-22 19:50 | CT ---
EXAMINATION TYPE: CT brain wo con for TPA DATE OF EXAM: 09/22/2020 COMPARISON: 09/22/2020 HISTORY: weakness, confusion CT DLP: 1132.8 mGycm Automated exposure control for dose reduction was used. Ventricles have fairly normal size. There is no mass effect nor midline shift. There is no sign of in tracranial hemorrhage. The calvarium is intact. There is some focal atrophy old infarct anterior left thalamus. IMPRESSION: No acute intracranial abnormality.
[2020-09-22 19:53] LABS: Glucose,Whole Blood 125 mg/dL (75-99)
[2020-09-22 20:09] LABS: Anisocytosis Moderate; HCT 20.2 % (39.0-53.0); HGB 7.3 gm/dL (13.0-17.5); MCH 40.5 pg (25.0-35.0); MCHC 36.3 g/dL (31.0-37.0); MCV 111.5 fL (80.0-100.0); Macrocytosis Marked; Platelet Count 108 k/uL (150-450); RBC 1.81 m/uL (4.30-5.90); RDW 21.5 % (11.5-15.5); WBC 3.2 k/uL (3.8-10.6)
--- NOTE | 2020-09-22 20:15 | CT ---
EXAMINATION TYPE: CODE STROKE: CTA head neck DATE OF EXAM: 09/22/2020 COMPARISON: None HISTORY: Weakness, confusion CT DLP: 689 mGycm Automated exposure control for dose reduction was used. CONTRAST: Performed with IV Contrast, patient injected with 65 mL of Isovue 370. There are 3-D post processed images. Images were obtained from the aortic arch to the vertex of the b rain. There is extensive airspace infiltrates in the upper lung garrison. There are multiple enlarged paratra cheal lymph nodes up to 1.5 cm. Thoracic aorta is intact. There is atheromatous changes. There is no aneurysm or dissection. There is bilateral arterial flow in the subclavian arteries. There is bilater al arterial flow in the common internal and external carotid arteries. There is plaque formation at t he carotid artery bifurcations and estimated 35% stenosis on the left side and 50% stenosis on the ri ght side at the origins of the internal carotid arteries. There is bilateral arterial flow in the ming tebral arteries. There is arterial flow in the vertebrobasilar artery system. There is arterial flow in the anterior middle and posterior cerebral arteries. There is atelectatic l eft intracranial internal carotid artery that measures 5 mm. There is contrast opacification of the v enous sinuses. There is no mass effect. There is no sign of intracranial neovascularity. IMPRESSION: There is stenosis at the carotid artery bifurcations as above. No dissection. 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 No evidence of int racranial arterial stenosis.
[2020-09-22 20:19] LABS: Partial Thromboplastin Time 29.6 sec (22.0-30.0); Prothrombin Time 10.2 sec (9.0-12.0)
[2020-09-22 20:22] LABS: Albumin 3.3 g/dL (3.5-5.0)
--- NOTE | 2020-09-22 20:42 | P.PN ---
Progress Note - Text Progress Note Date: 09/22/20 I personally spoke with the patient nurse via phone and he stated that the patient the strokelike symptoms around 1905 on 09/22/2020 and which she had right-sided weakness and confusion. The NIH was a 6 and the stroke team was the activated. NIH went down to a 3. Normal IV TPA because of the anemia and since he had recent blood transfusion. I ordered MRI of the brain. Because of the anemia I'll hold off on anti-a platelet for now. Once is safe we'll start the patient on antiplatelet. I'll start the patient on a very low dose of Lipitor 10 mg daily. I notified the nurse to continue neuro checks and notify me if any worsening of his condition. I'll see the patient tomorrow and a full consultation note will be done tomorrow. Yevgeniy Stock MD Neuro-hospitalist
[2020-09-22 20:57] LABS: Calcium 8.5 mg/dL (8.4-10.2); Potassium 3.9 mmol/L (3.5-5.1); Total Bilirubin 1.7 mg/dL (0.2-1.3)
[2020-09-22] MEDS: ATORVASTATIN 10 MG TAB PO SCH (22:14)
[2020-09-23] MEDS: methylPREDNISolone SOD SUCCI 125 MG/2 ML VIAL IV SCH ×4 (00:22→17:26)
[2020-09-23] MEDS: SODIUM CHLORIDE 0.9% 1,000 ML IV SCH ×2 (01:23→12:55)
[2020-09-23 06:09] LABS: Glucose,Whole Blood 237 mg/dL (75-99)
[2020-09-23] MEDS: PANTOPRAZOLE 40 MG TABLET PO SCH (06:38)
[2020-09-23] MEDS: INSULIN ASPART (NovoLOG) 100 UNIT/ML VIAL SQ SCH ×4 (06:39→21:57)
[2020-09-23] MEDS: ACETAMINOPHEN TAB 325 MG TAB PO PRN ×2 (06:42→16:47)
--- NOTE | 2020-09-23 08:01 | MR ---
EXAMINATION TYPE: MR brain wo con DATE OF EXAM: 09/23/2020 COMPARISON: CT brain from yesterday HISTORY: Right weakness TECHNIQUE: Multiplanar, multisequence imaging of the brain and brainstem is performed without IV cont rast. FINDINGS: Slightly suboptimal study is degraded by patient motion. Diffusion weighted images demonstrate no evidence of a recent infarct or other diffusion abnormality. There is no worrisome extra-axial fluid collection. Mild ventricular and sulcal prominence. Scattered foci of T2 hyperintensity noted throughout the superficial deep and periventricular white matter. Ap proximately 40-50 scattered lesions are seen. Midline structures demonstrate normal morphology. The craniocervical junction appears within normal limits. Normal vascular flow voids are present. Mild mucosal thickening left greater than right infer ior maxillary sinuses otherwise paranasal sinuses are clear. Globes are intact bilaterally. IMPRESSION: 1. Suboptimal study but no MRI evidence for a recent infarct. 2. Background mild diffuse age-related cerebral atrophy and moderate chronic small vessel ischemic ch clary along with mild inferior chronic maxillary sinus disease redemonstrated.
[2020-09-23 08:27] LABS: Anisocytosis Moderate; Basophils % (A) 0 %; Eosinophils % (A) 1 %; HCT 24.2 % (39.0-53.0); Lymphocytes # (A) 0.4 k/uL (1.0-4.8); Lymphocytes % (A) 11 %; MCHC 32.9 g/dL (31.0-37.0); MCV 115.5 fL (80.0-100.0); Macrocytosis Marked; Mean Platelet Volume 8.6; Monocytes # (A) 0.1 k/uL (0-1.0); Monocytes % (A) 3 %; Neutrophils # (A) 2.7 k/uL (1.3-7.7); Neutrophils % (A) 84 %; Platelet Count 133 k/uL (150-450); RDW 22.4 % (11.5-15.5); Reticulocyte % 1.6 % (0.5-2.0); WBC 3.3 k/uL (3.8-10.6)
[2020-09-23 08:38] LABS: ALT 39 U/L (4-49); AST 51 U/L (17-59); African American GFR (CKD) >90 (>60 ml/min/1.73 sqM); Albumin 3.6 g/dL (3.5-5.0); Alkaline Phosphatase 53 U/L (38-126); Anion Gap 9 mmol/L; Blood Urea Nitrogen 44 mg/dL (9-20); Calcium 8.7 mg/dL (8.4-10.2); Carbon Dioxide 26 mmol/L (22-30); Chloride 103 mmol/L (98-107); Cholesterol 204 mg/dL (<200); Glucose 198 mg/dL (74-99); HDL Cholesterol 25 mg/dL (40-60); LDL Cholesterol,Calculated 119 mg/dL (0-99); Magnesium 2.2 mg/dL (1.6-2.3); Non-African American GFR(CKD) 81 (>60 ml/min/1.73 sqM); Potassium 3.9 mmol/L (3.5-5.1); Sodium 138 mmol/L (137-145); Total Bilirubin 1.8 mg/dL (0.2-1.3); Total Protein 6.7 g/dL (6.3-8.2); Triglycerides 300 mg/dL (<150)
--- NOTE | 2020-09-23 08:53 | P.CNNES ---
History of Present Illness Consult date: 09/23/20 Requesting physician: Jennifer Loreod Reason for Consult: Code stroke for right sided weakness History of Present Illness: This is a 60-year-old gentleman with medical history of diabetes, hypertension, hyperlipidemia that presented emergency department on 09/20/2002 because the patient stated that the he feels generalized weakness and he feels his temperature was a elevated but he cannot tell me how high. Per the ED notes stated that the patient the was complaining of weakness has been going on for 3 days and is seems that it's they mentioned its affect in the right side. According to the patient was done using having generalized weakness. In the hospital the patient the OR was found to be a Coban 19 positive. On the 09/22/2020 around 1905 per the nurse the patient was noted to have right-sided weakness and received NIH of a 6. Last normal was possibly 5 minutes prior to that according to the nurse. The stroke code was activated.He had CT of the head which was reported as no acute cranial abnormality. CT angiography of the head and neck was reported as that there is a plaque formation at the carotid artery bifurcation and estimated 35% stenosis on the left side and 50% stenosis on the right side at the origin of the internal carotid arteries. No dissection. No evidence of intracranial arterial stenosis. The stroke team was contacted and they stated that the patient was not a TPA candidate that since the patient has acute on chronic anemia and he had the recent blood transfusion. His NIH i mproved to a 3. Patient got MRI of the brain earlier today and was reported as suboptimal study but no MRI evidence of for recent infarct. Background mild diffuse age-related related cerebral atrophy and moderate chronic small vessel ischemic changes along with mild inferior chronic maxillary sinus disease redemonstrated. EKG was reported as normal sinus rhythm. Right bundle branch block. Abnormal EKG at. Seems that the patient had an loss atrial fibrillation as an inpatient and cardiology is consulted. 2-D echo was reported as a mild concentric left ventricular hypertrophy. Ejection fraction of 50-55%. Upon seeing the patient that today he stated that the he didn't have any right arm worked since he only had the right lower extremity weakness that he noticed yesterday. He cannot tell me following this is been going on for. He said that he feels back to normal. He said that he is having pain over the proximal right thigh area and been going on for some time but not exactly sure for how long. He said that he has a bad left knee and that he needs a left knee replacement which she's been delaying. He denies off any neck pain or any the lower back pain. Denies off any bladder or urinary incontinence. Denies off any sensory loss. He said that he is able to walk to the bathroom by himself without any help. He said that he is on aspirin 81 mg at home and he is on a statin but not sure what the dose of statin. He is not on any other antiplatelets at. He is not on any anticoagulation. He denies any history of stroke or TIA in the past. Denies any tobacco use that. During his hospital stay his hemoglobin was 6.9 on and he received the blood transfusion on the next day it was 8.6 and and then the following day is 7.3. Review of Systems Review of system: The 12 point system was reviewed and apparent positive and negative per HPI. Past Medical History Past Medical History: Diabetes Mellitus, Hyperlipidemia, Hypertension Additional Past Medical History / Comment(s): anemia History of Any Multi-Drug Resistant Organisms: None Reported Past Surgical History: Appendectomy, Orthopedic Surgery Past Anesthesia/Blood Transfusion Reactions: No Reported Reaction Past Psychological History: No Psychological Hx Reported Smoking Status: Former smoker Past Alcohol Use History: None Reported Past Drug Use History: Marijuana - Past Family History Mother Additional Family Medical History / Comment(s): uterine cancer Medications and Allergies Home Medications Medication Instructions Recorded Confirmed Type Benazepril HCl [Lotensin] 40 mg PO DAILY 09/20/20 09/20/20 History Metoprolol Tartrate [Lopressor] 50 mg PO DAILY 09/20/20 09/20/20 History amLODIPine [Norvasc] 10 mg PO DAILY 09/20/20 09/20/20 History glyBURIDE/METFORMIN HCL 1 tab PO QID 09/20/20 09/20/20 History [Glucovance 2.5-500 mg] Allergies Allergy/AdvReac Type Severity Reaction Status Date / Time No Known Allergies Allergy Verified 09/20/20 12:44 Physical Examination - Vital Signs Vital Signs: Vital Signs Temp Pulse Pulse Resp BP BP Pulse Ox 09/23/20 04:26 87 130/66 09/23/20 04:00 18 95 09/23/20 03:56 93 124/62 09/23/20 03:26 92 94/60 09/23/20 02:56 72 92/53 09/23/20 02:26 77 126/63 09/23/20 02:00 78 18 09/23/20 01:56 77 111/57 09/23/20 00:00 98.2 F 78 18 115/60 95 09/22/20 22:15 83 119/65 09/22/20 22:00 84 116/60 09/22/20 21:45 75 124/63 09/22/20 21:30 75 136/71 09/22/20 21:15 75 137/68 09/22/20 21:00 98.6 F 70 135/66 95 09/22/20 20:45 70 135/66 96 09/22/20 20:30 100.0 F H 78 138/66 96 09/22/20 20:17 101.2 F H 77 20 144/72 96 09/22/20 19:50 83 20 09/22/20 19:47 101.2 F H 80 18 145/72 97 09/22/20 19:45 101.2 F H 83 18 145/72 95 09/22/20 19:02 101.2 F H 88 18 156/73 94 L 09/22/20 16:00 100.2 F H 84 20 125/62 91 L 09/22/20 14:00 84 Intake and Output 09/22/20 09/23/20 09/23/20 22:59 06:59 14:59 Other: Voiding Method Toilet # Voids 2 2 Weight 103.5 kg GENERAL: The patient is lying in bed and is not in acute distress. CHEST: The heart rate is regular rate rhythm. No murmurs to auscultation. No carotid bruit bilaterally. LUNG: Clear to auscultation bilaterally no wheezing noted throughout. Not labored breathing. ABDOMEN/GI: Bowel sounds present in all 4 quadrants. No tenderness to palpation throughout. NEUROLOGICAL: Higher mental function: The patient is awake, alert, oriented to self, place and time. Patient is following commands. No aphasia and no neglect. Cranial nerves: The pupils are round, equal and reactive to light and accommodation. Visual garrison are full to confrontation throughout. Extraocular movement is intact no nystagmus is noted. Facial sensation is normal to touch throughout. The facial strength is normal throughout. Hearing is normal bilaterally to hand rub. Tongue is midline and moved [id number] without any difficulty. No dysarthria is noted. Shoulder shrug is normal bilaterally. Motor: Gait is slow and seemed liked shuffling gait. The strength of the proximal right lower extremity is limited because of pain on anterior thigh but had at least 4+ to 5- otherwise 5/5 throughout. Normal tone and bulk. Cerebellum: Normal finger to nose bilaterally. Sensation: Sensation is normal to touch throughout. Reflexes (right/left): 2+ throughout except ankles are 1+ bilaterally. Plantars are downgoing bilaterally. Results Platelets has been in the range of 100s to 110s. - Laboratory Findings CBC and BMP: 09/22/20 19:57 09/22/20 19:57 Abnormal Lab Findings: Abnormal Labs 09/20/20 09/20/20 09/20/20 11:50 11:50 11:50 WBC 3.1 L RBC 1.75 L Hgb 7.3 L Hct 20.6 L MCV 117.9 H MCH 41.8 H RDW 17.6 H Plt Count 116 L Lymphocytes # 0.9 L Macrocytosis Marked A D-Dimer 4.00 H Sodium BUN 25 H Glucose 132 H POC Glucose (mg/dL) Ferritin 1637.7 H Total Bilirubin 1.7 H AST Lactate Dehydrogenase 2789 H Troponin I C-Reactive Protein 79.3 H Total Protein Albumin Procalcitonin Coronavirus (PCR) Crossmatch 09/20/20 09/20/20 09/20/20 11:50 11:50 11:50 WBC RBC Hgb Hct MCV MCH RDW Plt Count Lymphocytes # Macrocytosis D-Dimer Sodium BUN Glucose POC Glucose (mg/dL) Ferritin Total Bilirubin AST Lactate Dehydrogenase Troponin I 0.066 H* C-Reactive Protein Total Protein Albumin Procalcitonin 0.17 H Coronavirus (PCR) Detected A Crossmatch 09/20/20 09/20/20 09/20/20 15:33 17:20 18:19 WBC RBC Hgb Hct MCV MCH RDW Plt Count Lymphocytes # Macrocytosis D-Dimer Sodium BUN Glucose POC Glucose (mg/dL) Ferritin Total Bilirubin AST Lactate Dehydrogenase Troponin I 0.075 H* 0.079 H* C-Reactive Protein Total Protein Albumin Procalcitonin Coronavirus (PCR) Detected A Crossmatch 09/20/20 09/20/20 09/21/20 18:36 21:41 05:23 WBC 3.1 L RBC 1.60 L Hgb 6.9 L* Hct 19.7 L* MCV 123.3 H D MCH 43.2 H RDW 18.6 H Plt Count 112 L Lymphocytes # 0.7 L Macrocytosis Marked A D-Dimer Sodium BUN Glucose POC Glucose (mg/dL) 234 H 240 H Ferritin Total Bilirubin AST Lactate Dehydrogenase Troponin I C-Reactive Protein Total Protein Albumin Procalcitonin Coronavirus (PCR) Crossmatch 09/21/20 09/21/20 09/21/20 05:23 05:23 07:53 WBC RBC Hgb Hct MCV MCH RDW Plt Count Lymphocytes # Macrocytosis D-Dimer 1.14 H Sodium BUN 33 H Glucose 141 H POC Glucose (mg/dL) 183 H Ferritin 1824.6 H Total Bilirubin AST Lactate Dehydrogenase 2486 H Troponin I C-Reactive Protein 182.8 H Total Protein Albumin Procalcitonin Coronavirus (PCR) Crossmatch 09/21/20 09/21/20 09/21/20 08:47 12:43 17:36 WBC RBC Hgb Hct MCV MCH RDW Plt Count Lymphocytes # Macrocytosis D-Dimer Sodium BUN Glucose POC Glucose (mg/dL) 231 H 164 H Ferritin Total Bilirubin AST Lactate Dehydrogenase Troponin I C-Reactive Protein Total Protein Albumin Procalcitonin Coronavirus (PCR) Crossmatch See Detail 09/21/20 09/22/20 09/22/20 21:00 06:04 07:58 WBC RBC 2.21 L Hgb 8.6 L D Hct 25.3 L MCV 114.6 H D MCH 38.8 H RDW 22.8 H Plt Count 113 L Lymphocytes # 0.7 L Macrocytosis Marked A D-Dimer Sodium BUN Glucose POC Glucose (mg/dL) 107 H 185 H Ferritin Total Bilirubin AST Lactate Dehydrogenase Troponin I C-Reactive Protein Total Protein Albumin Procalcitonin Coronavirus (PCR) Crossmatch 09/22/20 09/22/20 09/22/20 07:58 07:58 11:51 WBC RBC Hgb Hct MCV MCH RDW Plt Count Lymphocytes # Macrocytosis D-Dimer 1.35 H Sodium BUN 43 H Glucose 211 H POC Glucose (mg/dL) 180 H Ferritin 2882.0 H Total Bilirubin 1.4 H AST 60 H Lactate Dehydrogenase 2475 H Troponin I C-Reactive Protein 156.4 H Total Protein Albumin Procalcitonin Coronavirus (PCR) Crossmatch 09/22/20 09/22/20 09/22/20 16:41 19:51 19:57 WBC 3.2 L RBC 1.81 L Hgb 7.3 L Hct 20.2 L MCV 111.5 H MCH 40.5 H RDW 21.5 H Plt Count 108 L Lymphocytes # Macrocytosis Marked A D-Dimer Sodium BUN Glucose POC Glucose (mg/dL) 123 H 125 H Ferritin Total Bilirubin AST Lactate Dehydrogenase Troponin I C-Reactive Protein Total Protein Albumin Procalcitonin Coronavirus (PCR) Crossmatch 09/22/20 09/22/20 09/23/20 19:57 19:57 06:05 WBC RBC Hgb Hct MCV MCH RDW Plt Count Lymphocytes # Macrocytosis D-Dimer Sodium 135 L BUN 44 H Glucose 116 H POC Glucose (mg/dL) 237 H Ferritin Total Bilirubin 1.7 H AST Lactate Dehydrogenase Troponin I 0.053 H* C-Reactive Protein Total Protein 6.0 L Albumin 3.3 L Procalcitonin Coronavirus (PCR) Crossmatch 09/23/20 07:45 WBC RBC Hgb Hct MCV MCH RDW Plt Count Lymphocytes # Macrocytosis D-Dimer 1.29 H Sodium BUN Glucose POC Glucose (mg/dL) Ferritin Total Bilirubin AST Lactate Dehydrogenase Troponin I C-Reactive Protein Total Protein Albumin Procalcitonin Coronavirus (PCR) Crossmatch Assessment and Plan Assessment: This is a 60-year-old gentleman that presented to the hospital on 09/20/2020 for pharyngitis weakness as well as fever. He is Covid 19 positive. On 09/22/2020 stroke code was activated for right-sided the weakness and at around 1905. He feels his symptoms has resolved. Transient ischemic attack (right facial weakness right lower extremity weakness). Likely due to atrial fibrillation vs hypotension from the anemia. New onset atrial fibrillation. Acute on chronic anemia Pneumonia due to covid 19 positive Diabetes Hypertension Hyperlipidemia Plan: MR the brain does not show any acute ischemia. Start the patient on Lipitor 10 mg. Once hemoglobin and hematocrits is more stabilized recommend increasing Lipitor to 4 mg at. Recommend aspirin 81 mg daily once hemoglobin or hematocrit are stable. Cardiology is board and is consulted for new onset atrial fibrillation. Once its safe maybe consider anticoagulation down the line but will defer the management to the cardiology team. Ordered that lipid panel, TSH. Continue cardiac monitoring Ordered a CK level because of the patient pain in the right the proximal thigh. As normal maybe consider EMG nerve conduction as an outpatient especially with a history of diabetes. Defer the management of diabetes, hypertension to the primary team. Infection disease is on board. Thank You for the consultation. Yevgeniy Stock M.D. Neuro-hospitalist Time with Patient: Greater than 30
[2020-09-23 08:54] LABS: C Reactive Protein 185.7 mg/L (<10.0); LDH 2029 U/L (313-618)
[2020-09-23] MEDS: METOPROLOL TARTRATE 50 MG TAB PO SCH (09:30)
[2020-09-23] MEDS: glipiZIDE 5 MG TAB PO SCH ×4 (09:30→21:57)
[2020-09-23] MEDS: lisinopriL 20 MG TAB PO SCH (09:31)
[2020-09-23] MEDS: metFORMIN 500 MG TAB PO SCH ×4 (09:31→21:57)
[2020-09-23] MEDS: ENOXAPARIN 40 MG/0.4 ML SYRINGE SQ SCH (09:31)
[2020-09-23] MEDS: amLODIPine 10 MG TAB PO SCH (09:31)
[2020-09-23] MEDS: ZINC SULFATE 220 MG CAP PO SCH (09:31)
[2020-09-23] MEDS: ALBUTEROL HFA INHALER INHALATION SCH ×4 (09:45→21:55)
[2020-09-23 10:35] LABS: Polychromasia Present
[2020-09-23 11:09] LABS: Protein, Total 6.3 g/dL (6.2-8.2)
[2020-09-23 11:51] LABS: Immunoglobulin M 30.2 mg/dL (40.0-280.0)
[2020-09-23 11:55] LABS: Free Kappa Lt Chain Qnt, Serum 3.01 mg/dL (0.33-1.94)
[2020-09-23 12:02] LABS: Glucose,Whole Blood 278 mg/dL (75-99)
[2020-09-23 12:19] LABS: % Iron Saturation 5.49 (15.00-50.00); Folate, Serum 20.8 ng/mL
--- NOTE | 2020-09-23 12:20 | P.PN ---
Subjective This is a pleasant 60-year-old male past medical history significant for hypertension, diabetes mellitus, chronic anemia and dyslipidemia. He is cur rently being treated for COVID-19 infection. Last night telemetry tracings indicated he went into atrial fibrillation. His rates have been controlled. Just prior to that he was found in his room hypoxic and confused with some right sided deficits. Code stroke was initiated. CT of the brain was negative for an acute intracranial process. 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 Brain MRI was suboptimal however no surrounding evidence for recent infarct with mild diffuse age-related cerebral atrophy and moderate chronic vessel ischemic changes along with mild inferior chronic maxillary sinus disease. Blood pressure 112/61 heart rate 83 afebrile maintaining oxygen saturation on room air. Laboratory data reviewed, WBC 3.3, hemoglobin 8, platelets 133, d-dimer 1.29, sodium 138, potassium 3.9, creatinine 1.01. Currently maintained on amlodipine 10 mg daily, atorvastatin 10 mg daily, lisinopril 40 mg daily and lopressor 50 mg daily. Telemetry tracings indicate he continues to be in a-fib with controlled rates. PHYSICAL EXAM Due to active COVID 19 infection the patient was not thoroughly examined. ASSESSMENT New onset paroxysmal atrial fibrillation with controlled ventricular rates. Covid pneumonia Anemia Abnormal troponin, not consistent with acute coronary syndrome and normal echo with no wall motion abnormalities Diabetes mellitus PLAN Continue with lopressor for rate control. We would like to initiate Eliquis 5 mg BID for thromboembolic protection. Anemia appears to be chronic in nature. We will clear this with hematology first. Nurse Practitioner note has been reviewed, I agree with a documented findings and plan of care. Patient was seen and examined. Objective - Vital Signs Vital signs: Vital Signs Temp 98.2 F 09/23/20 00:00 Pulse 87 09/23/20 04:26 Resp 18 09/23/20 04:00 BP 130/66 09/23/20 04:26 Pulse Ox 95 09/23/20 04:00 Intake & Output 09/22/20 09/23/20 09/23/20 18:59 06:59 18:59 Intake Total 480 Balance 480 Weight 103.5 kg Intake: Oral 480 Other: Voiding Method Toilet # Voids 2 2 # Bowel Movements 1 - Labs CBC & Chem 7: 09/23/20 07:45 09/23/20 07:45 Labs: Abnormal Lab Results - Last 24 Hours (Table) 09/20/20 09/22/20 09/22/20 Range/Units 11:50 07:58 07:58 WBC (3.8-10.6) k/uL RBC (4.30-5.90) m/uL Hgb (13.0-17.5) gm/dL Hct (39.0-53.0) % MCV (80.0-100.0) fL MCH (25.0-35.0) pg RDW (11.5-15.5) % Plt Count (150-450) k/uL Lymphocytes # 0.7 L (1.0-4.8) k/uL Macrocytosis D-Dimer (<0.60) mg/L FEU Sodium (137-145) mmol/L BUN (9-20) mg/dL Glucose (74-99) mg/dL POC Glucose (mg/dL) (75-99) mg/dL Ferritin 2882.0 H (22.0-322.0) ng/mL Total Bilirubin (0.2-1.3) mg/dL Lactate Dehydrogenase (313-618) U/L Troponin I (0.000-0.034) ng/mL C-Reactive Protein (<10.0) mg/L Total Protein (6.3-8.2) g/dL Albumin (3.5-5.0) g/dL Triglycerides (<150) mg/dL Cholesterol (<200) mg/dL LDL Cholesterol, Calc (0-99) mg/dL HDL Cholesterol (40-60) mg/dL TSH (0.465-4.680) mIU/L Coronavirus (PCR) Detected A (Not Detected) 09/22/20 09/22/20 09/22/20 Range/Units 11:51 16:41 19:51 WBC (3.8-10.6) k/uL RBC (4.30-5.90) m/uL Hgb (13.0-17.5) gm/dL Hct (39.0-53.0) % MCV (80.0-100.0) fL MCH (25.0-35.0) pg RDW (11.5-15.5) % Plt Count (150-450) k/uL Lymphocytes # (1.0-4.8) k/uL Macrocytosis D-Dimer (<0.60) mg/L FEU Sodium (137-145) mmol/L BUN (9-20) mg/dL Glucose (74-99) mg/dL POC Glucose (mg/dL) 180 H 123 H 125 H (75-99) mg/dL Ferritin (22.0-322.0) ng/mL Total Bilirubin (0.2-1.3) mg/dL Lactate Dehydrogenase (313-618) U/L Troponin I (0.000-0.034) ng/mL C-Reactive Protein (<10.0) mg/L Total Protein (6.3-8.2) g/dL Albumin (3.5-5.0) g/dL Triglycerides (<150) mg/dL Cholesterol (<200) mg/dL LDL Cholesterol, Calc (0-99) mg/dL HDL Cholesterol (40-60) mg/dL TSH (0.465-4.680) mIU/L Coronavirus (PCR) (Not Detected) 09/22/20 09/22/20 09/22/20 Range/Units 19:57 19:57 19:57 WBC 3.2 L (3.8-10.6) k/uL RBC 1.81 L (4.30-5.90) m/uL Hgb 7.3 L (13.0-17.5) gm/dL Hct 20.2 L (39.0-53.0) % MCV 111.5 H (80.0-100.0) fL MCH 40.5 H (25.0-35.0) pg RDW 21.5 H (11.5-15.5) % Plt Count 108 L (150-450) k/uL Lymphocytes # (1.0-4.8) k/uL Macrocytosis Marked A D-Dimer (<0.60) mg/L FEU Sodium 135 L (137-145) mmol/L BUN 44 H (9-20) mg/dL Glucose 116 H (74-99) mg/dL POC Glucose (mg/dL) (75-99) mg/dL Ferritin (22.0-322.0) ng/mL Total Bilirubin 1.7 H (0.2-1.3) mg/dL Lactate Dehydrogenase (313-618) U/L Troponin I 0.053 H* (0.000-0.034) ng/mL C-Reactive Protein (<10.0) mg/L Total Protein 6.0 L (6.3-8.2) g/dL Albumin 3.3 L (3.5-5.0) g/dL Triglycerides (<150) mg/dL Cholesterol (<200) mg/dL LDL Cholesterol, Calc (0-99) mg/dL HDL Cholesterol (40-60) mg/dL TSH (0.465-4.680) mIU/L Coronavirus (PCR) (Not Detected) 09/23/20 09/23/20 09/23/20 Range/Units 06:05 07:45 07:45 WBC 3.3 L (3.8-10.6) k/uL RBC 2.10 L (4.30-5.90) m/uL Hgb 8.0 L (13.0-17.5) gm/dL Hct 24.2 L (39.0-53.0) % MCV 115.5 H (80.0-100.0) fL MCH 38.0 H (25.0-35.0) pg RDW 22.4 H (11.5-15.5) % Plt Count 133 L (150-450) k/uL Lymphocytes # (1.0-4.8) k/uL Macrocytosis Marked A D-Dimer (<0.60) mg/L FEU Sodium (137-145) mmol/L BUN 44 H (9-20) mg/dL Glucose 198 H (74-99) mg/dL POC Glucose (mg/dL) 237 H (75-99) mg/dL Ferritin (22.0-322.0) ng/mL Total Bilirubin 1.8 H (0.2-1.3) mg/dL Lactate Dehydrogenase 2029 H (313-618) U/L Troponin I (0.000-0.034) ng/mL C-Reactive Protein 185.7 H (<10.0) mg/L Total Protein (6.3-8.2) g/dL Albumin (3.5-5.0) g/dL Triglycerides 300 H (<150) mg/dL Cholesterol 204 H (<200) mg/dL LDL Cholesterol, Calc 119 H (0-99) mg/dL HDL Cholesterol 25 L (40-60) mg/dL TSH 0.269 L (0.465-4.680) mIU/L Coronavirus (PCR) (Not Detected) 09/23/20 Range/Units 07:45 WBC (3.8-10.6) k/uL RBC (4.30-5.90) m/uL Hgb (13.0-17.5) gm/dL Hct (39.0-53.0) % MCV (80.0-100.0) fL MCH (25.0-35.0) pg RDW (11.5-15.5) % Plt Count (150-450) k/uL Lymphocytes # (1.0-4.8) k/uL Macrocytosis D-Dimer 1.29 H (<0.60) mg/L FEU Sodium (137-145) mmol/L BUN (9-20) mg/dL Glucose (74-99) mg/dL POC Glucose (mg/dL) (75-99) mg/dL Ferritin (22.0-322.0) ng/mL Total Bilirubin (0.2-1.3) mg/dL Lactate Dehydrogenase (313-618) U/L Troponin I (0.000-0.034) ng/mL C-Reactive Protein (<10.0) mg/L Total Protein (6.3-8.2) g/dL Albumin (3.5-5.0) g/dL Triglycerides (<150) mg/dL Cholesterol (<200) mg/dL LDL Cholesterol, Calc (0-99) mg/dL HDL Cholesterol (40-60) mg/dL TSH (0.465-4.680) mIU/L Coronavirus (PCR) (Not Detected) Microbiology - Last 24 Hours (Table) 09/20/20 12:19 Blood Culture - Preliminary Blood No Growth after 48 hours
--- NOTE | 2020-09-23 12:24 | XR ---
EXAMINATION TYPE: XR chest 1V portable DATE OF EXAM: 09/23/2020 Comparison: 09/21/2020 Clinical History: 60-year-old male with cough, covid Findings: Heart borderline enlarged. Leftward patient rotation. Patchy peripheral mid and lower lung opacities, left greater than right. Densities appear to be increasing on the right compared to the recent prior . Impression: Patchy peripheral mid and lower lung densities, left greater than right. Increasing densities on the right compared to prior exam. COVID pneumonia not excluded.
[2020-09-23 15:56] LABS: Ferritin 2949.8 ng/mL (22.0-322.0)
[2020-09-23 16:49] LABS: Glucose,Whole Blood 203 mg/dL (75-99)
--- NOTE | 2020-09-23 17:04 | PN ---
PROGRESS NOTE DATE OF SERVICE: 09/23/2020 This is a 60-year-old gentleman who was admitted with weakness and COVID-symptoms as evidence of bilateral pneumonia with possible sepsis and acute hypoxic respiratory failure. The patient also had a fever. The patient is currently on 97% on 4 L. The patient also had right-sided weakness PAST MEDICAL HISTORY: Reviewed. REVIEW OF SYSTEMS: CARDIOVASCULAR SYSTEM: No angina. RESPIRATORY: No cough. GI: No nausea : No dysphagia. NERVOUS SYSTEM: No numbness or weakness. CURRENT MEDICATIONS: Reviewed and include: 1. Tylenol. 2. [place]. 3. Ventolin. 4. Xanax. 5. Norvasc. 6. Eliquis. 7. Dilaudid. 8. NovoLog. 9. Zestril. 10.Glucophage. 11.Solu-Medrol. PHYSICAL EXAMINATION: Alert and oriented x3. Pulse 70, blood pressure 116/52, respiration 20, temperature 98.4, pulse ox 97% on 4 L. HEENT: Conjunctivae normal. NECK: No jugular venous distension. CARDIOVASCULAR SYSTEM: S1, S2, muffled. RESPIRATION: Breath sounds diminished at the bases, bilateral scattered rhonchi, no crackles. ABDOMEN: Soft, nontender. LEGS: No edema. No swelling. NERVOUS SYSTEM: No focal deficits. LABS: WBC 3.3, hemoglobin is 8 and D-dimer is 1.29. Total bilirubin is 1.8. Cholesterol is 204 and LDL is 119. ANTWAN screen was positive and IgM level was 30.2. ASSESSMENT: 1. Acute bilateral interstitial pneumonia possibly secondary to COVID-19 pneumonia with possible sepsis and acute hypoxic respiratory failure, present on admission. 2. Fever secondary to COVID-19 infection, present on admission. 3. Possible acute TIA on the right side. 4. Troponin 0.066. Rule out acute non ST elevation myocardial infarction or myocarditis secondary to COVID-19. .. 5. Anemia, acute on chronic possibly hyperplastic anemia. 6. Elevated D-dimer without any evidence of acute pulmonary embolism. 7. Elevated procalcitonin. 8. Increased CRP. 9. Elevated LDH. 10.Increased bilirubin. 11.Mild pancytopenia with severe anemia, macrocytic, history of chronic anemia. 12.Diabetes mellitus type 2. 13.Hypertension. 14.Hyperlipidemia. 15.History of appendectomy. 16.History of degenerative joint disease. 17.Obesity with body mass index 36.6. 18.FULL CODE. RECOMMENDATION: Recommend to continue current medications, symptomatic treatment. Otherwise, repeat labs. Continue with Lipitor. Will continue to monitor. The patient might be a candidate for Remdesivir. Will closely follow with multiple consultants. Guarded prognosis. Otherwise, continue follow with Neurology, Cardiology and Pulmonology. Continue with neurovascular workup. Overall prognosis is guarded because of multiple complex medical issues as listed above. Further recommendations to follow. Neurology has recommended the patient has some transient weakness on the right side, likely atrial fibrillation was noted and the patient also had a new onset atrial fibrillation. The most recent chest x-ray was reviewed personally by me, showed bilateral persistent infiltrates also. MMODL / IJN: [id number] /
--- NOTE | 2020-09-23 18:56 | P.PN ---
Subjective Progress Note Date: 09/23/20 Principal diagnosis: COVID On the 09/22/2020 he was noted to have right-sided weakness and received NIH of a 6. The stroke code was activated. He had CT of the head which was reported as no acute cranial abnormality. CT angiography of the head and neck was reported as that there is a plaque formation at the carotid artery bifurcation and estimated 35% stenosis on the left side and 50% stenosis on the right side at the origin of the internal carotid arteries. Per the medical recored he was not a TPA candidate due to his anemia anemia and recent blood transfusion. Neurology is following. We continue to await results of full anemia work-up. At this time no signs of acute blood loss anemia. Objective - Vital Signs Vital signs: Vital Signs Temp 103.1 F H 09/23/20 16:00 Pulse 88 09/23/20 16:00 Resp 16 09/23/20 16:00 BP 120/61 09/23/20 16:00 Pulse Ox 88 L 09/23/20 16:00 Intake & Output 09/22/20 09/23/20 09/23/20 18:59 06:59 18:59 Intake Total 480 754 Output Total 300 Balance 480 454 Weight 103.5 kg Intake: Oral 480 754 Output: Urine 300 Other: Voiding Method Toilet Toilet # Voids 2 2 # Bowel Movements 1 - Exam - Constitutional General appearance: cooperative, no acute distress - EENT Eyes: EOMI, PERRLA ENT: NA/AT, normal oropharynx - Neck Neck: normal ROM - Respiratory Respiratory: bilateral: CTA, rhonchi - Cardiovascular Rhythm: regularly irregular - Gastrointestinal General gastrointestinal: soft - Integumentary Integumentary: pale - Neurologic Neurologic:right sided weakness - Psychiatric Psychiatric: A&O x's 3, appropriate affect, intact judgment & insight - Labs CBC & Chem 7: 09/23/20 07:45 09/23/20 07:45 Labs: Abnormal Lab Results - Last 24 Hours (Table) 09/22/20 09/22/20 09/22/20 Range/Units 19:51 19:57 19:57 WBC 3.2 L (3.8-10.6) k/uL RBC 1.81 L (4.30-5.90) m/uL Hgb 7.3 L (13.0-17.5) gm/dL Hct 20.2 L (39.0-53.0) % MCV 111.5 H (80.0-100.0) fL MCH 40.5 H (25.0-35.0) pg RDW 21.5 H (11.5-15.5) % Plt Count 108 L (150-450) k/uL Lymphocytes # (1.0-4.8) k/uL Macrocytosis Marked A Haptoglobin (31.2-198.0) mg/dL D-Dimer (<0.60) mg/L FEU Sodium 135 L (137-145) mmol/L BUN 44 H (9-20) mg/dL Glucose 116 H (74-99) mg/dL POC Glucose (mg/dL) 125 H (75-99) mg/dL Iron (65-175) ug/dL % Saturation (15.00-50.00) Ferritin (22.0-322.0) ng/mL Total Bilirubin 1.7 H (0.2-1.3) mg/dL Lactate Dehydrogenase (313-618) U/L Troponin I (0.000-0.034) ng/mL C-Reactive Protein (<10.0) mg/L Total Protein 6.0 L (6.3-8.2) g/dL Albumin 3.3 L (3.5-5.0) g/dL Triglycerides (<150) mg/dL Cholesterol (<200) mg/dL LDL Cholesterol, Calc (0-99) mg/dL HDL Cholesterol (40-60) mg/dL Vitamin B12 (200.0-944.0) pg/mL TSH (0.465-4.680) mIU/L IgM (40.0-280.0) mg/dL ANTWAN Screen (NEGATIVE) Free Geiger LC, Quant (0.33-1.94) mg/dL 09/22/20 09/23/20 09/23/20 Range/Units 19:57 06:05 07:45 WBC 3.3 L (3.8-10.6) k/uL RBC 2.10 L (4.30-5.90) m/uL Hgb 8.0 L (13.0-17.5) gm/dL Hct 24.2 L (39.0-53.0) % MCV 115.5 H (80.0-100.0) fL MCH 38.0 H (25.0-35.0) pg RDW 22.4 H (11.5-15.5) % Plt Count 133 L (150-450) k/uL Lymphocytes # 0.4 L (1.0-4.8) k/uL Macrocytosis Marked A Haptoglobin (31.2-198.0) mg/dL D-Dimer (<0.60) mg/L FEU Sodium (137-145) mmol/L BUN (9-20) mg/dL Glucose (74-99) mg/dL POC Glucose (mg/dL) 237 H (75-99) mg/dL Iron (65-175) ug/dL % Saturation (15.00-50.00) Ferritin (22.0-322.0) ng/mL Total Bilirubin (0.2-1.3) mg/dL Lactate Dehydrogenase (313-618) U/L Troponin I 0.053 H* (0.000-0.034) ng/mL C-Reactive Protein (<10.0) mg/L Total Protein (6.3-8.2) g/dL Albumin (3.5-5.0) g/dL Triglycerides (<150) mg/dL Cholesterol (<200) mg/dL LDL Cholesterol, Calc (0-99) mg/dL HDL Cholesterol (40-60) mg/dL Vitamin B12 (200.0-944.0) pg/mL TSH (0.465-4.680) mIU/L IgM (40.0-280.0) mg/dL ANTWAN Screen (NEGATIVE) Free Geiger LC, Quant (0.33-1.94) mg/dL 09/23/20 09/23/20 09/23/20 Range/Units 07:45 07:45 07:45 WBC (3.8-10.6) k/uL RBC (4.30-5.90) m/uL Hgb (13.0-17.5) gm/dL Hct (39.0-53.0) % MCV (80.0-100.0) fL MCH (25.0-35.0) pg RDW (11.5-15.5) % Plt Count (150-450) k/uL Lymphocytes # (1.0-4.8) k/uL Macrocytosis Haptoglobin 211.0 H (31.2-198.0) mg/dL D-Dimer (<0.60) mg/L FEU Sodium (137-145) mmol/L BUN (9-20) mg/dL Glucose (74-99) mg/dL POC Glucose (mg/dL) (75-99) mg/dL Iron 13 L (65-175) ug/dL % Saturation 5.49 L (15.00-50.00) Ferritin (22.0-322.0) ng/mL Total Bilirubin (0.2-1.3) mg/dL Lactate Dehydrogenase (313-618) U/L Troponin I (0.000-0.034) ng/mL C-Reactive Protein (<10.0) mg/L Total Protein (6.3-8.2) g/dL Albumin (3.5-5.0) g/dL Triglycerides (<150) mg/dL Cholesterol (<200) mg/dL LDL Cholesterol, Calc (0-99) mg/dL HDL Cholesterol (40-60) mg/dL Vitamin B12 89.0 L (200.0-944.0) pg/mL TSH (0.465-4.680) mIU/L IgM (40.0-280.0) mg/dL ANTWAN Screen POSITIVE A (NEGATIVE) Free Geiger LC, Quant 3.01 H (0.33-1.94) mg/dL 09/23/20 09/23/20 09/23/20 Range/Units 07:45 07:45 07:45 WBC (3.8-10.6) k/uL RBC (4.30-5.90) m/uL Hgb (13.0-17.5) gm/dL Hct (39.0-53.0) % MCV (80.0-100.0) fL MCH (25.0-35.0) pg RDW (11.5-15.5) % Plt Count (150-450) k/uL Lymphocytes # (1.0-4.8) k/uL Macrocytosis Haptoglobin (31.2-198.0) mg/dL D-Dimer 1.29 H (<0.60) mg/L FEU Sodium (137-145) mmol/L BUN 44 H (9-20) mg/dL Glucose 198 H (74-99) mg/dL POC Glucose (mg/dL) (75-99) mg/dL Iron (65-175) ug/dL % Saturation (15.00-50.00) Ferritin 2949.8 H (22.0-322.0) ng/mL Total Bilirubin 1.8 H (0.2-1.3) mg/dL Lactate Dehydrogenase 2029 H (313-618) U/L Troponin I (0.000-0.034) ng/mL C-Reactive Protein 185.7 H (<10.0) mg/L Total Protein (6.3-8.2) g/dL Albumin (3.5-5.0) g/dL Triglycerides 300 H (<150) mg/dL Cholesterol 204 H (<200) mg/dL LDL Cholesterol, Calc 119 H (0-99) mg/dL HDL Cholesterol 25 L (40-60) mg/dL Vitamin B12 (200.0-944.0) pg/mL TSH 0.269 L (0.465-4.680) mIU/L IgM 30.2 L (40.0-280.0) mg/dL ANTWAN Screen (NEGATIVE) Free Geiger LC, Quant (0.33-1.94) mg/dL 09/23/20 09/23/20 Range/Units 11:57 16:47 WBC (3.8-10.6) k/uL RBC (4.30-5.90) m/uL Hgb (13.0-17.5) gm/dL Hct (39.0-53.0) % MCV (80.0-100.0) fL MCH (25.0-35.0) pg RDW (11.5-15.5) % Plt Count (150-450) k/uL Lymphocytes # (1.0-4.8) k/uL Macrocytosis Haptoglobin (31.2-198.0) mg/dL D-Dimer (<0.60) mg/L FEU Sodium (137-145) mmol/L BUN (9-20) mg/dL Glucose (74-99) mg/dL POC Glucose (mg/dL) 278 H 203 H (75-99) mg/dL Iron (65-175) ug/dL % Saturation (15.00-50.00) Ferritin (22.0-322.0) ng/mL Total Bilirubin (0.2-1.3) mg/dL Lactate Dehydrogenase (313-618) U/L Troponin I (0.000-0.034) ng/mL C-Reactive Protein (<10.0) mg/L Total Protein (6.3-8.2) g/dL Albumin (3.5-5.0) g/dL Triglycerides (<150) mg/dL Cholesterol (<200) mg/dL LDL Cholesterol, Calc (0-99) mg/dL HDL Cholesterol (40-60) mg/dL Vitamin B12 (200.0-944.0) pg/mL TSH (0.465-4.680) mIU/L IgM (40.0-280.0) mg/dL ANTWAN Screen (NEGATIVE) Free Geiger LC, Quant (0.33-1.94) mg/dL Microbiology - Last 24 Hours (Table) 09/20/20 12:19 Blood Culture - Preliminary Blood No Growth after 72 hours Assessment and Plan (1) Macrocytic anemia Narrative/Plan: Anemia work-up has been ordered at this time to assess for other causes of anemia. Continue to await for final results Current Visit: Yes Status: Acute Code(s): D53.9 - NUTRITIONAL ANEMIA, UNSPECIFIED SNOMED Code(s): 75484118 (2) Thrombocytopenia Narrative/Plan: Likely secondary to COVID-19 virus Should improve with recovery of virus Current Visit: Yes Status: Acute Code(s): D69.6 - THROMBOCYTOPENIA, UNSPECIFIED SNOMED Code(s): 609702268 (3) COVID-19 Current Visit: Yes Status: Acute Code(s): U07.1 - COVID-19 SNOMED Code(s): 326193172 (4) Febrile illness, acute Current Visit: Yes Status: Acute Code(s): R50.9 - FEVER, UNSPECIFIED SNOMED Code(s): 383663288 Plan: Will continue to follow and await bicytopenia work-up Supportive care in the interim Care from primary team and other specialties Will continue to monitor daily cbc Transfuse PRBC hemoglobin less than 7
[2020-09-23 20:30] LABS: Glucose,Whole Blood 235 mg/dL (75-99)
[2020-09-23] MEDS: APIXABAN 5 MG TAB PO SCH (21:57)
[2020-09-23] MEDS: ATORVASTATIN 10 MG TAB PO SCH (21:57)
[2020-09-23] MEDS ORDERED: REMDESIVIR 200 MG in SODIUM CHLORIDE 0.9% 250 ML IVPB ONE (22:45)
--- NOTE | 2020-09-23 23:35 | PN ---
PROGRESS NOTE DATE OF SERVICE: 09/23/2020 REASON FOR FOLLOWUP: COVID-19 pneumonia. INTERVAL HISTORY: The patient did spike a fever of 103.1 degrees Fahrenheit this evening. The patient also became hypoxic and requiring supplemental oxygen. When seen on rounds early this afternoon, the patient was overall feeling better and denies any chest pain or cough. No vomiting. No abdominal pain or diarrhea. PHYSICAL EXAMINATION: Blood pressure 120/61 with a pulse 88, temperature 103.1. He is 88% on 4 L nasal cannula. General description is a middle-aged male lying in bed in no distress. RESPIRATORY SYSTEM: Unlabored breathing, decreased intensity of breath sounds. No wheeze. HEART: S1, S2. Regular rate and rhythm. ABDOMEN: Soft, no tenderness. LABS: Hemoglobin 8 with white count 3.3, BUN of 44, creatinine 1.01. Ferritin is significantly elevated. DIAGNOSTIC IMPRESSION AND PLAN: Patient with fever and diagnosed with acute COVID-19 pneumonia. Patient was treated with Solu-Medrol, Eliquis and zinc, now with fever and hypoxemia we will repeat his cultures and start the patient on remdesivir and monitor his clinical course closely. MMODL / IJN: [id number] /
[2020-09-24] MEDS: ACETAMINOPHEN TAB 325 MG TAB PO PRN ×3 (00:16→14:49)
[2020-09-24] MEDS: methylPREDNISolone SOD SUCCI 125 MG/2 ML VIAL IV SCH ×5 (00:17→23:43)
[2020-09-24 06:20] LABS: Glucose,Whole Blood 268 mg/dL (75-99)
[2020-09-24] MEDS: PANTOPRAZOLE 40 MG TABLET PO SCH (06:46)
[2020-09-24] MEDS: INSULIN ASPART (NovoLOG) 100 UNIT/ML VIAL SQ SCH ×4 (06:46→22:04)
[2020-09-24] MEDS: ALBUTEROL HFA INHALER INHALATION SCH ×4 (08:24→20:35)
[2020-09-24] MEDS: SODIUM CHLORIDE 0.9% 1,000 ML IV SCH (09:28)
[2020-09-24] MEDS: metFORMIN 500 MG TAB PO SCH ×4 (09:47→22:03)
[2020-09-24] MEDS: glipiZIDE 5 MG TAB PO SCH ×4 (09:47→22:03)
[2020-09-24] MEDS: APIXABAN 5 MG TAB PO SCH ×2 (09:47→22:03)
[2020-09-24] MEDS: METOPROLOL TARTRATE 50 MG TAB PO SCH (09:47)
[2020-09-24] MEDS: lisinopriL 20 MG TAB PO SCH (09:47)
[2020-09-24] MEDS: ZINC SULFATE 220 MG CAP PO SCH (09:47)
[2020-09-24] MEDS: amLODIPine 10 MG TAB PO SCH (09:47)
[2020-09-24] MEDS: FOLIC ACID 1 MG TAB PO SCH (09:50)
[2020-09-24 12:01] LABS: Glucose,Whole Blood 322 mg/dL (75-99)
[2020-09-24] MEDS: CYANOCOBALAMIN 1,000 MCG/ML 1 ML VIAL IM SCH (12:28)
[2020-09-24 13:35] LABS: ANA Pattern Nucleolar
[2020-09-24 14:38] LABS: Albumin 3.26 g/dL (3.80-4.90); Gamma Globulin 0.66 g/dL (0.70-1.50)
--- NOTE | 2020-09-24 15:11 | P.PN ---
Subjective Progress Note Date: 09/24/20 Patient was seen at bedside and he states that the he's not feeling well. In the room he was coughing and that sounded congested. Otherwise she denies any weakness numbness or visual disturbance. Patient had a T-max of 103.1 Fahrenheit at 09/23/2020 at 1600 and he had a pulse ox of 88% liters nasal alla ric Dynasplint another temperature of 102.3. His POC glucose has been in the range of 200-300 Objective - Vital Signs Vital signs: Vital Signs Temp 97.6 F 09/24/20 08:00 Pulse 84 09/24/20 12:00 Resp 20 09/24/20 12:00 BP 136/71 09/24/20 12:00 Pulse Ox 92 L 09/24/20 14:00 Intake & Output 09/23/20 09/24/20 09/24/20 18:59 06:59 18:59 Intake Total 754 250 240 Output Total 300 Balance 454 250 240 Weight 101.5 kg Intake: Intake, IV Titration 250 Amount Remdesivir 200 mg In 250 Sodium Chloride 0.9% 250 ml @ 250 mls/hr IVPB ONCE ONE Rx#:[id number] Oral 754 240 Output: Urine 300 Other: Voiding Method Toilet Toilet # Voids 3 2 # Bowel Movements 1 - Exam GENERAL: The patient is lying in seemed in mild distress coughing. NEUROLOGICAL: Higher mental function: The patient is drowsy but awakeable, oriented to self, place and time. Patient is following commands. No aphasia and no neglect. Cranial nerves: The pupils are round, equal and reactive to light and accomm odation. Visual garrison are full to confrontation throughout. Extraocular movement is intact no nystagmus is noted. Facial sensation is normal to touch throughout. The facial strength is normal throughout. Hearing is normal bilaterally to hand rub. Tongue is midline and moved gwcc-ws-trci without any difficulty. No dysarthria is noted. Shoulder shrug is normal bilaterally. Motor: Gait is deferred. The strength of the proximal right lower extremity is limited because of pain on anterior thigh but had at least 4+ to 5- otherwise 5/5 throughout. Normal tone and bulk. Sensation: Sensation is normal to touch throughout. Reflexes (right/left): 2+ throughout except ankles are 1+ bilaterally. Plantars are downgoing bilaterally. - Labs CBC & Chem 7: 09/23/20 07:45 09/23/20 07:45 Labs: Abnormal Lab Results - Last 24 Hours (Table) 09/23/20 09/23/20 09/23/20 Range/Units 07:45 07:45 07:45 POC Glucose (mg/dL) (75-99) mg/dL Ferritin 2949.8 H (22.0-322.0) ng/mL Albumin (PEP) 3.26 L (3.80-4.90) g/dL Utagn-6-Tgkgenpmu 0.52 H (0.10-0.40) g/dL Gamma Globulins 0.66 L (0.70-1.50) g/dL RBC Folate 830 H (280 - 791) ng/mL ANTWAN Screen POSITIVE A (NEGATIVE) 09/23/20 09/23/20 09/24/20 Range/Units 16:47 20:29 06:19 POC Glucose (mg/dL) 203 H 235 H 268 H (75-99) mg/dL Ferritin (22.0-322.0) ng/mL Albumin (PEP) (3.80-4.90) g/dL Ndchc-5-Yhveaqjbi (0.10-0.40) g/dL Gamma Globulins (0.70-1.50) g/dL RBC Folate (280 - 791) ng/mL ANTWAN Screen (NEGATIVE) 09/24/20 Range/Units 11:55 POC Glucose (mg/dL) 322 H (75-99) mg/dL Ferritin (22.0-322.0) ng/mL Albumin (PEP) (3.80-4.90) g/dL Ykgyu-7-Mdbxzyuih (0.10-0.40) g/dL Gamma Globulins (0.70-1.50) g/dL RBC Folate (280 - 791) ng/mL ANTWAN Screen (NEGATIVE) Microbiology - Last 24 Hours (Table) 09/20/20 12:19 Blood Culture - Preliminary Blood No Growth after 96 hours Assessment and Plan Assessment: This is a 60-year-old gentleman that presented to the hospital on 09/20/2020 for pharyngitis weakness as well as fever. He is Covid 19 positive. On 09/22/2020 stroke code was activated for right-sided the weakness and at around 1905. He feels his symptoms has resolved. Transient ischemic attack (right facial weakness right lower extremity weakness). Likely due to atrial fibrillation vs hypotension from the anemia. Vitamin B12 deficiency 89 is low (normal 200-944) Toxic metabolic encephalopathy (Pneumoia due to COVID 19, fever, coughing, desaturation of pulse oxygen, acute on chronic anemia and component of Vitamin B12 deficiency) New onset atrial fibrillation Fever Hypoxic Respiratory failure Acute on chronic anemia Pneumonia due to covid 19 positive Diabetes Hypertension Hyperlipidemia Plan: MRI the brain does not show any acute ischemia. I increased the Lipitor from 10 mg to 40 mg. If the patient that the ANY worsening of the muscle pain or cramps recommend decreasing Lipitor from 40 mg to 10 mg. Cardiology is board and is consulted for new onset atrial fibrillation. Patient is placed on Eliquis 5 mg twice a day by the cardiology team. lipid panel: Triglyceride of 300, cholesterol 204, LDL of 119 and HDL of 25. TSH is 0.269 which is the low level and the free T4 for some reason was canceled. Vitamin B12 is 89 is low (normal 200-944). Patient was started on vitamin B12 1000 g intramuscular by the primary team. Prior to discharge. Please switch him over to 2 by mouth 1000 g daily. He was also placed on folic acid 1 mg daily by the primary team. The folate is 20.8. And the red blood cell folate is 130. The folate is normal Continue cardiac monitoring CK is 142 which is within normal limits. Was done the since the patient was complaining of right proximal thigh pain. consider EMG nerve conduction as an outpatient especially with a history of diabetes. Defer the management of diabetes, hypertension to the primary team. Blood cultures urinalysis are ordered as well as sputum Gram stain and cultures. Infection disease is on board. Patient needs to follow-up with a neurologist within 2-3 weeks upon discharge. There is no further neurological workup needed. Neurology will sign off. Please reconsult if needed. Yevgeniy Stock M.D. Neuro-hospitalist Time with Patient: Less than 30
[2020-09-24 17:27] LABS: Glucose,Whole Blood 225 mg/dL (75-99)
--- NOTE | 2020-09-24 17:55 | P.PN ---
Progress Note - Text I responded to a rapid response requested my nursing staff with concern about increased oxygen requirement. Patient is currently on 15 L of oxygen satting 90%. Nurse reported that he was requiring 4 L of oxygen earlier during the day. Patient himself is awake and alert. He denies significant shortness of breath. Lungs with scattered rhonchi. Is been admitted to the hospital with Covid19 pneumonia and worsening anemia requiring blood transfusion. Patient appears stable on current level of oxygen. I advised to use AirVo in case his oxygen saturation dropped below 88%. We will obtain repeat CBC and inflammatory markers as no lab work was done today. Also a stat chest x-ray has been ordered. I advised the nurse to continue to monitor clinical status closely. Discontinue IV fluids.
--- NOTE | 2020-09-24 17:56 | PN ---
PROGRESS NOTE DATE OF SERVICE: 09/24/2020 This 60-year-old gentleman admitted with acute COVID-19 infection as well as bilateral pneumonia and acute hypoxic respiratory failure was started on remdesivir. The patient is being closely monitored. Multiple consultants are following the patient closely. Currently the patient is on nasal cannula, saturating in the low 90s. Otherwise, the parameters are being closely monitored. Blood sugar is significantly elevated. Hemoglobin has improved to 8 at this time. Past medical history reviewed. REVIEW OF SYSTEMS: CARDIOVASCULAR SYSTEM: No angina, palpitations. RESPIRATORY SYSTEM: As mentioned earlier. GI: As mentioned earlier. : No dysuria or retention. NERVOUS SYSTEM: No numbness, weakness. CURRENT MEDICATIONS: Reviewed. They include Tylenol, [place], Ventolin, Xanax, Norvasc, Eliquis, Rocephin, Glucotrol, Solu-Medrol remdesivir. PHYSICAL EXAMINATION: Patient is alert and oriented x3. Pulse is 84, blood pressure 130/71, respiration 20, temperature normal, pulse ox 98% on 3 L. HEENT: Conjunctivae normal. NECK: No jugular venous distention. CARDIOVASCULAR SYSTEM: S1, S2 muffled. RESPIRATORY SYSTEM: Breath sounds diminished at the bases. Bilateral scattered rhonchi and crackles. ABDOMEN: Soft, non-tender. LEGS: No edema. No swelling. NERVOUS SYSTEM: No focal deficit. LABS: WBC 3.3, hemoglobin is 8. Haptoglobin is 211. D-dimer is 1.29, which is improving at this time. is 119. ASSESSMENT: 1. Acute bilateral interstitial pneumonia, possibly secondary to acute COVID-19 pneumonia with possible sepsis and acute hypoxic respiratory failure, present on admission. 2. Fever secondary to COVID-19 infection, present on admission. 3. Possible acute transient ischemic attack on the right side. 4. Troponin 0.066. Rule out acute umk-EO-nqrpbzx-elevation myocardial infarction or myocarditis secondary to COVID-19. 5. Anemia, acute on chronic; possibly hypoplastic anemia. 6. Elevated D-dimer without any evidence of pulmonary embolism, acute. 7. History of elevated procalcitonin. 8. Increased CRP. 9. Increased LDH. 10.Increased bilirubin. 11.Mild pancytopenia with severe anemia and macrocytosis. 12.History of chronic anemia. 13.Diabetes mellitus, type 2. 14.Hypertension. 15.Hyperlipidemia. 16.History of appendectomy. 17.History of degenerative joint disease. 18.Obesity with body mass index of 36.6. 19.FULL CODE. RECOMMENDATIONS AND DISCUSSION: I recommend to continue current medications, continue with the monitoring, symptomatic treatment. Otherwise at this time I appreciate neurology evaluation. Continue with Lipitor. Continue the rest of the medications, vitamin supplementation. Continue with Lovenox. Continue with the remdesivir. Guarded prognosis because of multiple complex medical issues. Further recommendations to follow. MMODL / IJN: [id number] / JANENE
--- NOTE | 2020-09-24 18:20 | XR ---
EXAMINATION TYPE: XR chest 1V portable DATE OF EXAM: 09/24/2020 COMPARISON: Yesterday HISTORY: Short of breath TECHNIQUE: FINDINGS: There are extensive bilateral pulmonary interstitial and airspace infiltrates. Pulmonary va scularity is difficult to evaluate because of extensive lung disease. There are chest leads. Thoracic aorta is atheromatous. There is no definite pleural effusion. IMPRESSION: Bilateral extensive pneumonia is significantly worse than yesterday.
[2020-09-24 19:01] LABS: Anisocytosis Moderate; Basophils % (A) 0 %; Eosinophils % (A) 1 %; HCT 22.1 % (39.0-53.0); HGB 7.5 gm/dL (13.0-17.5); Lymphocytes # (A) 0.2 k/uL (1.0-4.8); Lymphocytes % (A) 8 %; MCH 39.4 pg (25.0-35.0); MCHC 33.8 g/dL (31.0-37.0); MCV 116.8 fL (80.0-100.0); Macrocytosis Marked; Mean Platelet Volume 8.9; Monocytes # (A) 0.1 k/uL (0-1.0); Monocytes % (A) 5 %; Neutrophils # (A) 2.2 k/uL (1.3-7.7); Neutrophils % (A) 84 %; Platelet Count 144 k/uL (150-450); RBC 1.89 m/uL (4.30-5.90); RDW 22.2 % (11.5-15.5); WBC 2.7 k/uL (3.8-10.6)
[2020-09-24 19:27] LABS: Polychromasia Present
[2020-09-24 20:04] LABS: Calcium 8.4 mg/dL (8.4-10.2); Magnesium 2.3 mg/dL (1.6-2.3); Potassium 3.8 mmol/L (3.5-5.1)
[2020-09-24 20:38] LABS: C Reactive Protein 207.3 mg/L (<10.0)
[2020-09-24 20:43] LABS: Glucose,Whole Blood 219 mg/dL (75-99)
[2020-09-24] MEDS: CEFEPIME 2 GM in SODIUM CHLORIDE 0.9% 100 ML IVPB SCH (22:03)
[2020-09-24] MEDS: REMDESIVIR 100 MG in SODIUM CHLORIDE 0.9% 250 ML IVPB SCH (22:03)
[2020-09-24] MEDS: ATORVASTATIN 40 MG TAB PO SCH (22:03)
--- NOTE | 2020-09-24 22:23 | PN ---
PROGRESS NOTE DATE OF SERVICE: 09/24/2020 REASON FOR FOLLOWUP: COVID-19 pneumonia. INTERVAL HISTORY: The patient did spike another fever this evening with a fever around midnight. The patient denies having any chest pain, shortness of breath, and is currently on high- flow nasal cannula oxygen. No nausea, no vomiting. No abdominal pain or diarrhea. PHYSICAL EXAMINATION: Blood pressure 130/68, pulse of 87. Temperature is 101.2. He is 91% on 15 L high-flow oxygen. General description is a middle-aged male lying in bed in no distress. RESPIRATORY SYSTEM: Unlabored breathing with decreased breath sounds at the base. No wheeze. HEART: S1, S2. Regular rate and rhythm. ABDOMEN: Soft. No tenderness. EXTREMITIES: No edema of the feet. LABS: Hemoglobin 7.5, white count 2.7, BUN of 54, creatinine 1.12. LDH is 1889. DIAGNOSTIC IMPRESSION AND PLAN: Patient with acute COVID-19 pneumonia in this patient was started on remdesivir yesterday. Please continue on Eliquis, Solu-Medrol, zinc sulfate and respiratory support and monitor his clinical course closely. He may need close monitoring, and Pulmonary should be consulted. Discussed with the admitting service; with persistent fever, inflammatory markers and blood culture will be rechecked tomorrow. Antibiotics continue supportive care. MMODL / IJN: [id number] /
[2020-09-24] MEDS: ALPRAZolam 0.25 MG TAB PO PRN (23:56)
[2020-09-25 06:17] LABS: Glucose,Whole Blood 208 mg/dL (75-99)
[2020-09-25 06:18] LABS: Ferritin 3643.2 ng/mL (22.0-322.0)
[2020-09-25] MEDS: INSULIN ASPART (NovoLOG) 100 UNIT/ML VIAL SQ SCH ×4 (06:45→21:46)
[2020-09-25] MEDS: PANTOPRAZOLE 40 MG TABLET PO SCH (06:45)
[2020-09-25] MEDS: methylPREDNISolone SOD SUCCI 125 MG/2 ML VIAL IV SCH ×3 (06:45→18:26)
[2020-09-25] MEDS: ALBUTEROL HFA INHALER INHALATION SCH ×4 (08:05→19:49)
--- NOTE | 2020-09-25 08:07 | CDI ---
Documentation Clarification Form Date: 09/25/2020 07:20:44 AM From: Oksana Jernigan RN CCDS Admit Date: 09/20/2020 02:32:00 PM Patient Name: Endy Rivas Visit Number: [id number] Discharge Date: ATTENTION: The Clinical Documentation Specialists (CDI) and [facility] Coding Staff appreciate your assistance in clarifying documentation. Please respond to the clarification below the line at the bottom and electronically sign. The CDI & [facility] Coding staff will review the response and follow-up if needed. Please note: Queries are made part of the Legal Health Record. If you have any questions, please contact the author of this message via ITS. Dr. Jennifer Loredo Rule out acute Non ST segment elevation myocardial infarction or Myocarditis secondary to COVID 19 is documented in the H&P 09/20 and Progress Notes 09/21 through 09/24 Patient History/Risk Factors: 60-year-old male presents to the ED with weakness fever and COVID symptoms. Medical history: DM, HTN, HLD and anemia Clinical Indicators: Troponin: 09/20 0.066; 0.075; 0.079; 09/22 0.053 EKG Results 09/20: Normal sinus rhythm, Right bundle branch block Echo 09/21: Mild concentric left ventricular hypertrophy. Overall left ventricular systolic function is low normal with an EF between 50-55%. Mild aortic valve sclerosis, mild to moderate mitral regurgitation is present, mild tricuspid regurgitation is present Cardiology Progress Note 09/23: Abnormal troponin, not consistent with acute coronary syndrome and normal echo with no wall motion abnormalities Treatment: Consult: Cardiology see above Progress Note MEDS: 09/20: Lovenox SQ Q12 hrs changed 09/22 to Daily; Hexadrol PO Daily d/cd 09/21; 09/23 Remdesivir Ivpb Daily x 5; 0.9 NS 130 cc/hr changed 09/20 to 75cc/hr d/c 09/24; Zinc PO Daily For accurate documentation can you please clarify Non -ST segment elevation Myocardial infarction: Type 2 NM secondary to demand ischemia in the setting of COVID [address] segment elevation myocardial infarction ruled out Unable to determine Other Condition, please specify (Last Revision: October 2019) Non ST segment elevation myocardial infarction ruled out MTDD
--- NOTE | 2020-09-25 08:47 | CDI ---
Documentation Clarification Form Date: 09/25/2020 08:12:02 AM From: Oksana Jernigan RN CCDS Admit Date: 09/20/2020 02:32:00 PM Patient Name: Endy Rivas Visit Number: [id number] Discharge Date: ATTENTION: The Clinical Documentation Specialists (CDI) and [facility] Coding Staff appreciate your assistance in clarifying documentation. Please respond to the clarification below the line at the bottom and electronically sign. The CDI & [facility] Coding staff will review the response and follow-up if needed. Please note: Queries are made part of the Legal Health Record. If you have any questions, please contact the author of this message via ITS. Dr. Jennifer Loredo Rule out acute Non ST segment elevation myocardial infarction or Myocarditis secondary to COVID 19 is documented in the H&P 09/20 and Progress Notes 09/21 through 09/24 History/Risk Factors: 60-year-old male presents to the ED with weakness, fever and COVID symptoms. Medical history: DM, HTN, HLD and anemia. Admitting Diagnoses: Bilateral Interstitial Pneumonia and COVID 19 Clinical Indicators: Lab findings 09/20: Wbc 3.1; Lymph 0.9; D-Dimer 4.0; Ferritin 1637.7; LDH 2789; Troponin: 09/20 0.066; 0.075; 0.079; 09/22 0.053; CRP 79.3; Procalcitonin 0.17; CORONAVIRUS Detected Vital Signs 09/20: B/P 149/68; HR 97; Temp 103.1 F Oral; RR 18; SpO2 96% RA EKG Results 09/20: Normal sinus rhythm, Right bundle branch block Echo 09/21: Mild concentric left ventricular hypertrophy. Overall left ventricular systolic function is low normal with an EF between 50-55%. Mild aortic valve sclerosis, mild to moderate mitral regurgitation is present, mild tricuspid regurgitation is present Cardiology Progress Note 09/23: Abnormal troponin, not consistent with acute coronary syndrome and normal echo with no wall motion abnormalities ID Progress Note 09/24: Acute COVID 19 Pneumonia Treatment: 09/20: 0.9 NS 130 cc/Hr changed 09/20 to 75cc/Hr d/c 09/24; Ceftriaxone Ivpb Q24HR d/c 09/24; 09/24: Cefepime Ivpb Q12HR Consult: Cardiology see above Consult: ID see above In your professional opinion, can you please clarify Myocarditis? Myocarditis Ruled Out Myocarditis Ruled In Other, please specify Unable to determine (Last Revision: January 2018) Unable to determine MTDD
[2020-09-25 08:50] LABS: Methylmalonic Acid >5.00 umol/L (<0.40)
[2020-09-25] MEDS: CEFEPIME 2 GM in SODIUM CHLORIDE 0.9% 100 ML IVPB SCH ×2 (09:27→21:46)
[2020-09-25] MEDS: FOLIC ACID 1 MG TAB PO SCH (09:28)
[2020-09-25] MEDS: glipiZIDE 5 MG TAB PO SCH ×4 (09:28→21:46)
[2020-09-25] MEDS: lisinopriL 20 MG TAB PO SCH (09:28)
[2020-09-25] MEDS: APIXABAN 5 MG TAB PO SCH ×2 (09:28→21:46)
[2020-09-25] MEDS: amLODIPine 10 MG TAB PO SCH (09:28)
[2020-09-25] MEDS: ZINC SULFATE 220 MG CAP PO SCH (09:28)
[2020-09-25] MEDS: METOPROLOL TARTRATE 50 MG TAB PO SCH (09:28)
[2020-09-25] MEDS: CYANOCOBALAMIN 1,000 MCG/ML 1 ML VIAL IM SCH (09:28)
[2020-09-25] MEDS: metFORMIN 500 MG TAB PO SCH ×4 (09:28→21:46)
[2020-09-25 12:35] LABS: Glucose,Whole Blood 233 mg/dL (75-99)
[2020-09-25 14:14] VITALS: BMI 28.2
--- NOTE | 2020-09-25 14:50 | P.PN ---
Subjective Progress Note Date: 09/25/20 Principal diagnosis: COVID Awaiting CBC from today. Objective - Vital Signs Vital signs: Vital Signs Temp 99.0 F 09/25/20 12:00 Pulse 93 09/25/20 08:00 Resp 18 09/25/20 12:00 BP 132/70 09/25/20 12:00 Pulse Ox 90 L 09/25/20 12:00 Intake & Output 09/24/20 09/25/20 09/25/20 18:59 06:59 18:59 Intake Total 480 590 Output Total 150 300 Balance 480 440 -300 Weight 77 kg 77 kg Intake: Intake, IV Titration 350 Amount Cefepime 2 gm In Sodium 100 Chloride 0.9% 100 ml @ 25 mls/hr IVPB Q12HR MARYAM Rx #:[id number] Remdesivir 100 mg In 250 Sodium Chloride 0.9% 250 ml @ 250 mls/hr IVPB HS MARYAM Rx#:[id number] Oral 480 240 Output: Urine 150 300 Other: Voiding Method Bedside Commode Urinal # Voids 2 2 # Bowel Movements 1 - Exam - Constitutional General appearance: cooperative, no acute distress - EENT Eyes: EOMI, PERRLA ENT: NA/AT, normal oropharynx - Neck Neck: normal ROM - Respiratory Respiratory: bilateral: CTA, rhonchi - Cardiovascular Rhythm: regularly irregular - Gastrointestinal General gastrointestinal: soft - Integumentary Integumentary: pale - Neurologic Neurologic:right sided weakness - Psychiatric Psychiatric: A&O x's 3, appropriate affect, intact judgment & insight - Labs CBC & Chem 7: 09/25/20 15:26 09/25/20 15:26 Labs: Abnormal Lab Results - Last 24 Hours (Table) 09/23/20 09/24/20 09/24/20 Range/Units 07:45 17:03 18:34 WBC 2.7 L (3.8-10.6) k/uL RBC 1.89 L (4.30-5.90) m/uL Hgb 7.5 L (13.0-17.5) gm/dL Hct 22.1 L (39.0-53.0) % MCV 116.8 H (80.0-100.0) fL MCH 39.4 H (25.0-35.0) pg RDW 22.2 H (11.5-15.5) % Plt Count 144 L (150-450) k/uL Lymphocytes # 0.2 L (1.0-4.8) k/uL Macrocytosis Marked A Carbon Dioxide (22-30) mmol/L BUN (9-20) mg/dL Glucose (74-99) mg/dL POC Glucose (mg/dL) 225 H (75-99) mg/dL Ferritin (22.0-322.0) ng/mL Lactate Dehydrogenase (313-618) U/L C-Reactive Protein (<10.0) mg/L Methylmalonic Acid >5.00 H (<0.40) umol/L Procalcitonin (0.02-0.09) ng/mL 09/24/20 09/24/20 09/24/20 Range/Units 18:34 20:38 23:07 WBC (3.8-10.6) k/uL RBC (4.30-5.90) m/uL Hgb (13.0-17.5) gm/dL Hct (39.0-53.0) % MCV (80.0-100.0) fL MCH (25.0-35.0) pg RDW (11.5-15.5) % Plt Count (150-450) k/uL Lymphocytes # (1.0-4.8) k/uL Macrocytosis Carbon Dioxide 20 L (22-30) mmol/L BUN 54 H (9-20) mg/dL Glucose 197 H (74-99) mg/dL POC Glucose (mg/dL) 219 H (75-99) mg/dL Ferritin 3643.2 H (22.0-322.0) ng/mL Lactate Dehydrogenase 1889 H (313-618) U/L C-Reactive Protein 207.3 H (<10.0) mg/L Methylmalonic Acid (<0.40) umol/L Procalcitonin 0.30 H (0.02-0.09) ng/mL 09/25/20 09/25/20 Range/Units 06:02 12:15 WBC (3.8-10.6) k/uL RBC (4.30-5.90) m/uL Hgb (13.0-17.5) gm/dL Hct (39.0-53.0) % MCV (80.0-100.0) fL MCH (25.0-35.0) pg RDW (11.5-15.5) % Plt Count (150-450) k/uL Lymphocytes # (1.0-4.8) k/uL Macrocytosis Carbon Dioxide (22-30) mmol/L BUN (9-20) mg/dL Glucose (74-99) mg/dL POC Glucose (mg/dL) 208 H 233 H (75-99) mg/dL Ferritin (22.0-322.0) ng/mL Lactate Dehydrogenase (313-618) U/L C-Reactive Protein (<10.0) mg/L Methylmalonic Acid (<0.40) umol/L Procalcitonin (0.02-0.09) ng/mL Microbiology - Last 24 Hours (Table) 09/20/20 12:19 Blood Culture - Preliminary Blood No Growth after 120 hours 09/23/20 23:19 Blood Culture - Preliminary Blood No Growth after 24 hours Assessment and Plan (1) Macrocytic anemia Narrative/Plan: - Severe B12 deficiency - B12 IM Daily x5 Current Visit: Yes Status: Acute Code(s): D53.9 - NUTRITIONAL ANEMIA, UNSPECIFIED SNOMED Code(s): 64087319 (2) Thrombocytopenia Narrative/Plan: Likely secondary to COVID-19 virus Should improve with recovery of virus Current Visit: Yes Status: Acute Code(s): D69.6 - THROMBOCYTOPENIA, UNSPECIFIED SNOMED Code(s): 080397746 (3) COVID-19 Current Visit: Yes Status: Acute Code(s): U07.1 - COVID-19 SNOMED Code(s): 872577798 (4) Febrile illness, acute Current Visit: Yes Status: Acute Code(s): R50.9 - FEVER, UNSPECIFIED SNOMED Code(s): 417225047 Plan: B12 IM x7 days to continue - Daily CBC - Await CBC today.
--- NOTE | 2020-09-25 15:41 | PN ---
PROGRESS NOTE DATE OF SERVICE: 09/25/2020 This is a 60-year-old gentleman who was admitted acute COVID pneumonia, also had bilateral pneumonia, acute hypoxic respiratory failure. Patient was on supplemental oxygen at this time. The patient was started on Remdesivir. The chest x-ray which was done yesterday which was personally reviewed by me showed evidence of bilateral extensive pneumonia. PAST MEDICAL HISTORY: Reviewed. REVIEW OF SYSTEMS: CARDIOVASCULAR SYSTEM: No angina. RESPIRATION: No cough. GI: As mentioned earlier. : No dysuria. NERVOUS SYSTEM: No numbness or weakness. CURRENT MEDICATIONS: Reviewed and include: 1. Tylenol. 2. [place]. 3. Ventolin. 4. Xanax. 5. Norvasc. 6. Eliquis. 7. Lipitor. 8. Folic acid. 9. Glucotrol. 10.Zestril. 11.Solu-Medrol. 12.Narcan. 13.Protonix. 14.Remdesivir. PHYSICAL EXAMINATION: Patient is alert and oriented x3. Pulse is 93, blood pressure 147/70, respiration 18, temperature 98.8, pulse ox 94% on high-flow O2. HEENT: Conjunctivae normal. NECK: No jugular venous distension. CARDIOVASCULAR SYSTEM: S1, S2, muffled. RESPIRATORY SYSTEM: Breath sounds diminished at the bases, bilateral scattered rhonchi, expiratory wheezing also present. ABDOMEN: Soft, nontender. LEGS: No edema. No swelling. NERVOUS SYSTEM: No focal deficits. LABS: WBC 2.2, hemoglobin 7.5, and ferritin is 3643. LDH is 18. CRP is 207. Procalcitonin 0.3. ASSESSMENT: 1. Acute bilateral interstitial pneumonia possibly secondary to acute COVID-19 pneumonia with possible sepsis and acute hypoxic respiratory failure present on admission. 2. Fever secondary to COVID-19 infection, present on admission. 3. Possible TIA on the right side. 4. Troponin 0.06. Rule out acute olj-UH-rvswmaf-elevation myocardial infarction or myocarditis secondary to COVID-19. .. 5. Anemia acute on chronic possibly hyperplastic anemia. 6. Elevated D-dimer without evidence of pulmonary embolism, acute. 7. History of elevated procalcitonin. 8. Increased CRP. 9. Increased LDH. 10.Increased bilirubin. 11.Mild pancytopenia with severe anemia and macrocytosis. 12.History of chronic anemia. 13.Diabetes mellitus type 2. 14.Hypertension. 15.Hyperlipidemia. 16.History of appendectomy. 17.History of DJD. 18.Obesity with body mass index of 36.6. 19.FULL CODE. RECOMMENDATION: Recommendation to continue current medications, continue symptomatic treatment, continue the bronchodilators. Continue with the antibiotics. Continue with the Remdesivir. The prognosis extremely guarded because of multiple complex medical issues. Further recommendations to follow. MMODL / IJN: [id number] /
[2020-09-25 16:25] LABS: Anisocytosis Moderate; Basophils % (A) 1 %; Eosinophils % (A) 0 %; HCT 23.3 % (39.0-53.0); HGB 8.2 gm/dL (13.0-17.5); Lymphocytes # (A) 0.3 k/uL (1.0-4.8); Lymphocytes % (A) 6 %; MCH 40.7 pg (25.0-35.0); MCHC 35.4 g/dL (31.0-37.0); Macrocytosis Marked; Mean Platelet Volume 9.3; Monocytes # (A) 0.3 k/uL (0-1.0); Monocytes % (A) 6 %; Neutrophils # (A) 4.1 k/uL (1.3-7.7); Neutrophils % (A) 85 %; Platelet Count 166 k/uL (150-450); RBC 2.02 m/uL (4.30-5.90); RDW 21.4 % (11.5-15.5); WBC 4.8 k/uL (3.8-10.6)
[2020-09-25 16:45] LABS: Albumin 2.9 g/dL (3.5-5.0); Calcium 8.3 mg/dL (8.4-10.2); Total Bilirubin 1.2 mg/dL (0.2-1.3); Total Protein 5.8 g/dL (6.3-8.2)
[2020-09-25 17:39] LABS: Glucose,Whole Blood 241 mg/dL (75-99)
[2020-09-25 21:09] LABS: Glucose,Whole Blood 240 mg/dL (75-99)
[2020-09-25] MEDS: REMDESIVIR 100 MG in SODIUM CHLORIDE 0.9% 250 ML IVPB SCH (21:46)
[2020-09-25] MEDS: ATORVASTATIN 40 MG TAB PO SCH (21:46)
--- NOTE | 2020-09-25 23:08 | PN ---
PROGRESS NOTE DATE OF SERVICE: 09/25/2020. REASON FOR FOLLOW UP: COVID-19 pneumonia and fever. INTERVAL HISTORY: Patient overall fever pattern has improved. No fever recorded since last evening. The patient is still complaining of some shortness of breath but no worsening. Denies any chest pain. Minimal cough. No nausea, no vomiting. No abdominal pain. No diarrhea. PHYSICAL EXAMINATION: Blood pressure 171/83, pulse of 87, temperature of 99. He is 93% on 6 L high-flow oxygen. General description is a middle-aged male lying in bed in no distress. Respiratory system: Unlabored breathing, decreased breath sounds. No wheeze. Heart S1, S2. Regular rate and rhythm. ABDOMEN: Soft, no tenderness. LABS: Hemoglobin 8.8, white count 4.8, BUN of 47, creatinine 1.08. DIAGNOSTIC IMPRESSION AND PLAN: Patient with acute COVID-19 pneumonia in this patient who seemed to have a fever though resolved after addition of cefepime to continue. We will try to obtain a sputum. Repeat chest x-ray and inflammatory markers tomorrow and monitor clinical course closely. As the patient requiring high-flow nasal cannula oxygen, will benefit from pulmonary evaluation. MMODL / IJN: [id number] /
[2020-09-26] MEDS: methylPREDNISolone SOD SUCCI 125 MG/2 ML VIAL IV SCH ×4 (00:15→17:43)
[2020-09-26 06:48] LABS: Glucose,Whole Blood 241 mg/dL (75-99)
[2020-09-26] MEDS: INSULIN ASPART (NovoLOG) 100 UNIT/ML VIAL SQ SCH ×4 (06:54→19:59)
[2020-09-26] MEDS: PANTOPRAZOLE 40 MG TABLET PO SCH (06:54)
[2020-09-26] MEDS: metFORMIN 500 MG TAB PO SCH ×4 (08:41→19:55)
[2020-09-26] MEDS: CEFEPIME 2 GM in SODIUM CHLORIDE 0.9% 100 ML IVPB SCH (08:41)
[2020-09-26] MEDS: APIXABAN 5 MG TAB PO SCH ×2 (08:41→19:55)
[2020-09-26] MEDS: FOLIC ACID 1 MG TAB PO SCH (08:41)
[2020-09-26] MEDS: lisinopriL 20 MG TAB PO SCH (08:41)
[2020-09-26] MEDS: amLODIPine 10 MG TAB PO SCH (08:41)
[2020-09-26] MEDS: METOPROLOL TARTRATE 50 MG TAB PO SCH (08:41)
[2020-09-26] MEDS: glipiZIDE 5 MG TAB PO SCH ×4 (08:41→19:55)
[2020-09-26] MEDS: ZINC SULFATE 220 MG CAP PO SCH (08:41)
[2020-09-26] MEDS: CYANOCOBALAMIN 1,000 MCG/ML 1 ML VIAL IM SCH (08:43)
[2020-09-26 09:13] LABS: ALT 35 U/L (4-49); AST 38 U/L (17-59); African American GFR (CKD) >90 (>60 ml/min/1.73 sqM); Albumin 2.6 g/dL (3.5-5.0); Alkaline Phosphatase 49 U/L (38-126); Anion Gap 8 mmol/L; Blood Urea Nitrogen 42 mg/dL (9-20); Carbon Dioxide 25 mmol/L (22-30); Chloride 104 mmol/L (98-107); Glucose 241 mg/dL (74-99); Non-African American GFR(CKD) 82 (>60 ml/min/1.73 sqM); Sodium 137 mmol/L (137-145); Total Bilirubin 1.2 mg/dL (0.2-1.3); Total Protein 5.3 g/dL (6.3-8.2)
[2020-09-26] MEDS: ALBUTEROL HFA INHALER INHALATION SCH ×4 (09:21→20:44)
--- NOTE | 2020-09-26 10:04 | P.CNPUL ---
History of Present Illness Consult date: 09/25/20 Reason for consult: dyspnea, cough, hypoxemia, pneumonia Chief complaint: Codvid 19 pneumonia and acute hypoxic respiratory failure History of present illness: Patient seen and evaluated examined on third floor, patient has been diagnosed as covert 19 pneumonia and acute hypoxic respiratory failure patient is being seen by infectious disease services has been started on IV REM the liver, also on Decadron, chest x-ray performed yesterday continue show bilateral fluffy and alveolar infiltrate with early ARDS-like appearance, review of the data revealed that patient has significant risk factors of diabetes mellitus hypertension hypertensive cardiovascular disease dyslipidemia chronic anemia patient sees Dr. Gaytan for primary care activities, it seems like symptoms started about a week ago with progressive cough shortness of breath, on arrival he was found to be febrile with a fever of 101 Review of Systems All systems: negative Past Medical History Past Medical History: Diabetes Mellitus, Hyperlipidemia, Hypertension Additional Past Medical History / Comment(s): anemia History of Any Multi-Drug Resistant Organisms: None Reported Past Surgical History: Appendectomy, Orthopedic Surgery Past Anesthesia/Blood Transfusion Reactions: No Reported Reaction Past Psychological History: No Psychological Hx Reported Smoking Status: Former smoker Past Alcohol Use History: None Reported Past Drug Use History: Marijuana - Past Family History Mother Additional Family Medical History / Comment(s): uterine cancer Medications and Allergies Home Medications Medication Instructions Recorded Confirmed Type Benazepril HCl [Lotensin] 40 mg PO DAILY 09/20/20 09/20/20 History Metoprolol Tartrate [Lopressor] 50 mg PO DAILY 09/20/20 09/20/20 History amLODIPine [Norvasc] 10 mg PO DAILY 09/20/20 09/20/20 History glyBURIDE/METFORMIN HCL 1 tab PO QID 09/20/20 09/20/20 History [Glucovance 2.5-500 mg] Apixaban [Eliquis] 5 mg PO BID #60 tab 09/23/20 Rx Allergies Allergy/AdvReac Type Severity Reaction Status Date / Time No Known Allergies Allergy Verified 09/20/20 12:44 Physical Exam Vitals: Vital Signs Temp Pulse Resp BP Pulse Ox 09/25/20 12:00 99.0 F 18 132/70 90 L 09/25/20 08:00 98.2 F 93 18 140/80 90 L 09/25/20 04:00 98.8 F 93 18 147/71 95 12/04/20 02:00 93 18 09/25/20 00:00 98.6 F 93 18 133/69 99 09/24/20 23:09 94 L 09/24/20 20:50 91 20 09/24/20 20:00 99.1 F 91 20 125/69 93 L 09/24/20 18:13 101.2 F H 09/24/20 16:00 20 130/68 91 L Intake and Output 09/25/20 09/25/20 09/25/20 06:59 14:59 22:59 Intake Total 350 Output Total 150 300 Balance 200 -300 Intake: Intake, IV Titration 350 Amount Cefepime 2 gm In Sodium 100 Chloride 0.9% 100 ml @ 25 mls/hr IVPB Q12HR [facility] Rx #:[id number] Remdesivir 100 mg In 250 Sodium Chloride 0.9% 250 ml @ 250 mls/hr IVPB HS [facility] Rx#:[id number] Output: Urine 150 300 Other: # Voids 2 Weight 77 kg 77 kg - Constitutional General appearance: average body habitus, disheveled, mild distress - EENT Eyes: PERRLA Ears: bilateral: normal - Neck Neck: normal ROM Carotids: bilateral: upstroke normal Thyroid: bilateral: normal size - Respiratory Respiratory: bilateral: diminished - Cardiovascular Rhythm: regular Heart sounds: normal: S1, S2 - Gastrointestinal General gastrointestinal: hyperactive bowel sounds - Integumentary Integumentary: normal turgor - Neurologic Neurologic: CNII-XII intact - Musculoskeletal Musculoskeletal: gait normal, generalized weakness, strength equal bilaterally - Psychiatric Psychiatric: A&O x's 3, appropriate affect, intact judgment & insight Results - Laboratory Findings CBC and BMP: 09/25/20 15:26 09/26/20 08:20 PT/INR, D-dimer PT 10.2 sec (9.0-12.0) 09/22/20 19:57 INR 1.0 (<1.2) 09/22/20 19:57 D-Dimer 1.29 mg/L FEU (<0.60) H 09/23/20 07:45 Abnormal lab findings: Abnormal Labs 09/20/20 09/20/20 09/20/20 11:50 11:50 11:50 WBC 3.1 L RBC 1.75 L Hgb 7.3 L Hct 20.6 L MCV 117.9 H MCH 41.8 H RDW 17.6 H Plt Count 116 L Lymphocytes # 0.9 L Macrocytosis Marked A Haptoglobin D-Dimer 4.00 H Sodium Carbon Dioxide BUN 25 H Glucose 132 H POC Glucose (mg/dL) Iron % Saturation Ferritin 1637.7 H Total Bilirubin 1.7 H AST Lactate Dehydrogenase 2789 H Troponin I C-Reactive Protein 79.3 H Total Protein Albumin Albumin (PEP) Famls-6-Mykaadbog Gamma Globulins Triglycerides Cholesterol LDL Cholesterol, Calc HDL Cholesterol Vitamin B12 Methylmalonic Acid RBC Folate Procalcitonin TSH IgM ANTWAN Screen Free [place] LC, Quant Coronavirus (PCR) Crossmatch 09/20/20 09/20/20 09/20/20 11:50 11:50 11:50 WBC RBC Hgb Hct MCV MCH RDW Plt Count Lymphocytes # Macrocytosis Haptoglobin D-Dimer Sodium Carbon Dioxide BUN Glucose POC Glucose (mg/dL) Iron % Saturation Ferritin Total Bilirubin AST Lactate Dehydrogenase Troponin I 0.066 H* C-Reactive Protein Total Protein Albumin Albumin (PEP) Liogj-8-Ysxegpcez Gamma Globulins Triglycerides Cholesterol LDL Cholesterol, Calc HDL Cholesterol Vitamin B12 Methylmalonic Acid RBC Folate Procalcitonin 0.17 H TSH IgM ANTWAN Screen Free [place] LC, Quant Coronavirus (PCR) Detected A Crossmatch 09/20/20 09/20/20 09/20/20 15:33 17:20 18:19 WBC RBC Hgb Hct MCV MCH RDW Plt Count Lymphocytes # Macrocytosis Haptoglobin D-Dimer Sodium Carbon Dioxide BUN Glucose POC Glucose (mg/dL) Iron % Saturation Ferritin Total Bilirubin AST Lactate Dehydrogenase Troponin I 0.075 H* 0.079 H* C-Reactive Protein Total Protein Albumin Albumin (PEP) Egjdm-1-Czbpheioa Gamma Globulins Triglycerides Cholesterol LDL Cholesterol, Calc HDL Cholesterol Vitamin B12 Methylmalonic Acid RBC Folate Procalcitonin TSH IgM ANTWAN Screen Free [place] LC, Quant Coronavirus (PCR) Detected A Crossmatch 09/20/20 09/20/20 09/21/20 18:36 21:41 05:23 WBC 3.1 L RBC 1.60 L Hgb 6.9 L* Hct 19.7 L* MCV 123.3 H D MCH 43.2 H RDW 18.6 H Plt Count 112 L Lymphocytes # 0.7 L Macrocytosis Marked A Haptoglobin D-Dimer Sodium Carbon Dioxide BUN Glucose POC Glucose (mg/dL) 234 H 240 H Iron % Saturation Ferritin Total Bilirubin AST Lactate Dehydrogenase Troponin I C-Reactive Protein Total Protein Albumin Albumin (PEP) Imanf-5-Vvhqgnheb Gamma Globulins Triglycerides Cholesterol LDL Cholesterol, Calc HDL Cholesterol Vitamin B12 Methylmalonic Acid RBC Folate Procalcitonin TSH IgM ANTWAN Screen Free [place] LC, Quant Coronavirus (PCR) Crossmatch 09/21/20 09/21/20 09/21/20 05:23 05:23 07:53 WBC RBC Hgb Hct MCV MCH RDW Plt Count Lymphocytes # Macrocytosis Haptoglobin D-Dimer 1.14 H Sodium Carbon Dioxide BUN 33 H Glucose 141 H POC Glucose (mg/dL) 183 H Iron % Saturation Ferritin 1824.6 H Total Bilirubin AST Lactate Dehydrogenase 2486 H Troponin I C-Reactive Protein 182.8 H Total Protein Albumin Albumin (PEP) Ciasg-7-Nhubtsnrd Gamma Globulins Triglycerides Cholesterol LDL Cholesterol, Calc HDL Cholesterol Vitamin B12 Methylmalonic Acid RBC Folate Procalcitonin TSH IgM ANTWAN Screen Free [place] LC, Quant Coronavirus (PCR) Crossmatch 09/21/20 09/21/20 09/21/20 08:47 12:43 17:36 WBC RBC Hgb Hct MCV MCH RDW Plt Count Lymphocytes # Macrocytosis Haptoglobin D-Dimer Sodium Carbon Dioxide BUN Glucose POC Glucose (mg/dL) 231 H 164 H Iron % Saturation Ferritin Total Bilirubin AST Lactate Dehydrogenase Troponin I C-Reactive Protein Total Protein Albumin Albumin (PEP) Ipxlz-0-Dvmrceixm Gamma Globulins Triglycerides Cholesterol LDL Cholesterol, Calc HDL Cholesterol Vitamin B12 Methylmalonic Acid RBC Folate Procalcitonin TSH IgM ANTWAN Screen Free [place] LC, Quant Coronavirus (PCR) Crossmatch See Detail 09/21/20 09/22/20 09/22/20 21:00 06:04 07:58 WBC RBC 2.21 L Hgb 8.6 L D Hct 25.3 L MCV 114.6 H D MCH 38.8 H RDW 22.8 H Plt Count 113 L Lymphocytes # 0.7 L Macrocytosis Marked A Haptoglobin D-Dimer Sodium Carbon Dioxide BUN Glucose POC Glucose (mg/dL) 107 H 185 H Iron % Saturation Ferritin Total Bilirubin AST Lactate Dehydrogenase Troponin I C-Reactive Protein Total Protein Albumin Albumin (PEP) Vwnxu-5-Exnwsbhir Gamma Globulins Triglycerides Cholesterol LDL Cholesterol, Calc HDL Cholesterol Vitamin B12 Methylmalonic Acid RBC Folate Procalcitonin TSH IgM ANTWAN Screen Free [place] LC, Quant Coronavirus (PCR) Crossmatch 09/22/20 09/22/20 09/22/20 07:58 07:58 11:51 WBC RBC Hgb Hct MCV MCH RDW Plt Count Lymphocytes # Macrocytosis Haptoglobin D-Dimer 1.35 H Sodium Carbon Dioxide BUN 43 H Glucose 211 H POC Glucose (mg/dL) 180 H Iron % Saturation Ferritin 2882.0 H Total Bilirubin 1.4 H AST 60 H Lactate Dehydrogenase 2475 H Troponin I C-Reactive Protein 156.4 H Total Protein Albumin Albumin (PEP) Bzydp-2-Xlpylsrqh Gamma Globulins Triglycerides Cholesterol LDL Cholesterol, Calc HDL Cholesterol Vitamin B12 Methylmalonic Acid RBC Folate Procalcitonin TSH IgM ANTWAN Screen Free [place] LC, Quant Coronavirus (PCR) Crossmatch 09/22/20 09/22/20 09/22/20 16:41 19:51 19:57 WBC 3.2 L RBC 1.81 L Hgb 7.3 L Hct 20.2 L MCV 111.5 H MCH 40.5 H RDW 21.5 H Plt Count 108 L Lymphocytes # Macrocytosis Marked A Haptoglobin D-Dimer Sodium Carbon Dioxide BUN Glucose POC Glucose (mg/dL) 123 H 125 H Iron % Saturation Ferritin Total Bilirubin AST Lactate Dehydrogenase Troponin I C-Reactive Protein Total Protein Albumin Albumin (PEP) Wzvor-4-Uocxcuumg Gamma Globulins Triglycerides Cholesterol LDL Cholesterol, Calc HDL Cholesterol Vitamin B12 Methylmalonic Acid RBC Folate Procalcitonin TSH IgM ANTWAN Screen Free [place] LC, Quant Coronavirus (PCR) Crossmatch 09/22/20 09/22/20 09/23/20 19:57 19:57 06:05 WBC RBC Hgb Hct MCV MCH RDW Plt Count Lymphocytes # Macrocytosis Haptoglobin D-Dimer Sodium 135 L Carbon Dioxide BUN 44 H Glucose 116 H POC Glucose (mg/dL) 237 H Iron % Saturation Ferritin Total Bilirubin 1.7 H AST Lactate Dehydrogenase Troponin I 0.053 H* C-Reactive Protein Total Protein 6.0 L Albumin 3.3 L Albumin (PEP) Pxsla-6-Dsnznyauw Gamma Globulins Triglycerides Cholesterol LDL Cholesterol, Calc HDL Cholesterol Vitamin B12 Methylmalonic Acid RBC Folate Procalcitonin TSH IgM ANTWAN Screen Free [place] LC, Quant Coronavirus (PCR) Crossmatch 09/23/20 09/23/20 09/23/20 07:45 07:45 07:45 WBC 3.3 L RBC 2.10 L Hgb 8.0 L Hct 24.2 L MCV 115.5 H MCH 38.0 H RDW 22.4 H Plt Count 133 L Lymphocytes # 0.4 L Macrocytosis Marked A Haptoglobin D-Dimer Sodium Carbon Dioxide BUN Glucose POC Glucose (mg/dL) Iron 13 L % Saturation 5.49 L Ferritin Total Bilirubin AST Lactate Dehydrogenase Troponin I C-Reactive Protein Total Protein Albumin Albumin (PEP) Dsbvs-7-Oygxtksmm Gamma Globulins Triglycerides Cholesterol LDL Cholesterol, Calc HDL Cholesterol Vitamin B12 89.0 L Methylmalonic Acid >5.00 H RBC Folate 830 H Procalcitonin TSH IgM ANTWAN Screen Free [place] LC, Quant Coronavirus (PCR) Crossmatch 09/23/20 09/23/20 09/23/20 07:45 07:45 07:45 WBC RBC Hgb Hct MCV MCH RDW Plt Count Lymphocytes # Macrocytosis Haptoglobin 211.0 H D-Dimer Sodium Carbon Dioxide BUN Glucose POC Glucose (mg/dL) Iron % Saturation Ferritin Total Bilirubin AST Lactate Dehydrogenase Troponin I C-Reactive Protein Total Protein Albumin Albumin (PEP) 3.26 L Paain-7-Rwglclwgb 0.52 H Gamma Globulins 0.66 L Triglycerides Cholesterol LDL Cholesterol, Calc HDL Cholesterol Vitamin B12 Methylmalonic Acid RBC Folate Procalcitonin TSH IgM 30.2 L ANTWAN Screen POSITIVE A Free [place] LC, Quant 3.01 H Coronavirus (PCR) Crossmatch 09/23/20 09/23/20 09/23/20 07:45 07:45 11:57 WBC RBC Hgb Hct MCV MCH RDW Plt Count Lymphocytes # Macrocytosis Haptoglobin D-Dimer 1.29 H Sodium Carbon Dioxide BUN 44 H Glucose 198 H POC Glucose (mg/dL) 278 H Iron % Saturation Ferritin 2949.8 H Total Bilirubin 1.8 H AST Lactate Dehydrogenase 2029 H Troponin I C-Reactive Protein 185.7 H Total Protein Albumin Albumin (PEP) Cearr-0-Bnwvtlrlw Gamma Globulins Triglycerides 300 H Cholesterol 204 H LDL Cholesterol, Calc 119 H HDL Cholesterol 25 L Vitamin B12 Methylmalonic Acid RBC Folate Procalcitonin TSH 0.269 L IgM ANTWAN Screen Free [place] LC, Quant Coronavirus (PCR) Crossmatch 09/23/20 09/23/2020 16:47 20:29 06:19 WBC RBC Hgb Hct MCV MCH RDW Plt Count Lymphocytes # Macrocytosis Haptoglobin D-Dimer Sodium Carbon Dioxide BUN Glucose POC Glucose (mg/dL) 203 H 235 H 268 H Iron % Saturation Ferritin Total Bilirubin AST Lactate Dehydrogenase Troponin I C-Reactive Protein Total Protein Albumin Albumin (PEP) Qpjel-8-Bimgogyxi Gamma Globulins Triglycerides Cholesterol LDL Cholesterol, Calc HDL Cholesterol Vitamin B12 Methylmalonic Acid RBC Folate Procalcitonin TSH IgM ANTWAN Screen Free [place] LC, Quant Coronavirus (PCR) Crossmatch 09/24/20 09/24/20 09/24/20 11:55 17:03 18:34 WBC 2.7 L RBC 1.89 L Hgb 7.5 L Hct 22.1 L MCV 116.8 H MCH 39.4 H RDW 22.2 H Plt Count 144 L Lymphocytes # 0.2 L Macrocytosis Marked A Haptoglobin D-Dimer Sodium Carbon Dioxide BUN Glucose POC Glucose (mg/dL) 322 H 225 H Iron % Saturation Ferritin Total Bilirubin AST Lactate Dehydrogenase Troponin I C-Reactive Protein Total Protein Albumin Albumin (PEP) Bwgdc-9-Cpymjoogy Gamma Globulins Triglycerides Cholesterol LDL Cholesterol, Calc HDL Cholesterol Vitamin B12 Methylmalonic Acid RBC Folate Procalcitonin TSH IgM ANTWAN Screen Free [place] LC, Quant Coronavirus (PCR) Crossmatch 09/24/20 09/24/20 09/24/20 18:34 20:38 23:07 WBC RBC Hgb Hct MCV MCH RDW Plt Count Lymphocytes # Macrocytosis Haptoglobin D-Dimer Sodium Carbon Dioxide 20 L BUN 54 H Glucose 197 H POC Glucose (mg/dL) 219 H Iron % Saturation Ferritin 3643.2 H Total Bilirubin AST Lactate Dehydrogenase 1889 H Troponin I C-Reactive Protein 207.3 H Total Protein Albumin Albumin (PEP) Ogjqa-5-Fqqxxwuyx Gamma Globulins Triglycerides Cholesterol LDL Cholesterol, Calc HDL Cholesterol Vitamin B12 Methylmalonic Acid RBC Folate Procalcitonin 0.30 H TSH IgM ANTWAN Screen Free [place] LC, Quant Coronavirus (PCR) Crossmatch 09/25/20 09/25/20 06:02 12:15 WBC RBC Hgb Hct MCV MCH RDW Plt Count Lymphocytes # Macrocytosis Haptoglobin D-Dimer Sodium Carbon Dioxide BUN Glucose POC Glucose (mg/dL) 208 H 233 H Iron % Saturation Ferritin Total Bilirubin AST Lactate Dehydrogenase Troponin I C-Reactive Protein Total Protein Albumin Albumin (PEP) Eikhq-4-Mrhzqaxhl Gamma Globulins Triglycerides Cholesterol LDL Cholesterol, Calc HDL Cholesterol Vitamin B12 Methylmalonic Acid RBC Folate Procalcitonin TSH IgM ANTWAN Screen Free [place] LC, Quant Coronavirus (PCR) Crossmatch - Diagnostic Findings Chest x-ray: report reviewed, image reviewed (Finding as noted above) Assessment and Plan Assessment: Acute covid 19 pneumonia Acute hypoxic respiratory failure Hypertension hypertensive cardiovascular disease History of dyslipidemia Obesity Elevated d-dimer and inflammatory parameters of Covid 19 pneumonia Plan: Continue supplemental oxygen given severity hypoxia continue high flow oxygen: Oxygen Closely keep saturation about 88-90% IV steroids IV REMdesivir Anticoagulation Deep breathing exercise incentive spirometry Prone positioning Time with Patient: Greater than 30
--- NOTE | 2020-09-26 10:09 | P.PN ---
Subjective Progress Note Date: 09/26/20 Principal diagnosis: Acute covid 19 pneumonia Acute hypoxic respiratory failure Hypertension hypertensive cardiovascular disease History of dyslipidemia Obesity Elevated d-dimer and inflammatory parameters of Covid 19 pneumonia 09/26/2020, patient seen eval examined during the rounds still hypoxic short of breath, oxygen saturation is coming down into mid to low 90s on high flow oxygen, patient will require the BiPAP, care plan discussed with the staff nurse will initiate BiPAP with high flow oxygen patient also will benefit from convulsant plasma Patient seen and evaluated examined on third floor, patient has been diagnosed as covert 19 pneumonia and acute hypoxic respiratory failure patient is being seen by infectious disease services has been started on IV REM the liver, also on Decadron, chest x-ray performed yesterday continue show bilateral fluffy and alveolar infiltrate with early ARDS-like appearance, review of the data revealed that patient has significant risk factors of diabetes mellitus hypertension hypertensive cardiovascular disease dyslipidemia chronic anemia patient sees Dr. Gaytan for primary care activities, it seems like symptoms started about a week ago with progressive cough shortness of breath, on arrival he was found to be febrile with a fever of 101 Objective - Vital Signs Vital signs: Vital Signs Temp 98.6 F 09/26/20 08:00 Pulse 90 09/26/20 08:00 Resp 20 09/26/20 08:00 BP 133/66 09/26/20 08:00 Pulse Ox 92 L 09/26/20 08:00 Intake & Output 09/25/20 09/26/20 09/26/20 18:59 06:59 18:59 Intake Total 540 100 Output Total 550 Balance -10 100 Weight 77 kg 76.5 kg Intake: Intake, IV Titration 100 Amount Cefepime 2 gm In Sodium 100 Chloride 0.9% 100 ml @ 25 mls/hr IVPB Q12HR [facility] Rx #:[id number] Oral 540 Output: Urine 550 Other: Voiding Method Bedside Commode Urinal # Voids 2 - Exam - Constitutional General appearance: average body habitus, disheveled, mild distress - EENT Eyes: PERRLA Ears: bilateral: normal - Neck Neck: normal ROM Carotids: bilateral: upstroke normal Thyroid: bilateral: normal size - Respiratory Respiratory: bilateral: diminished - Cardiovascular Rhythm: regular Heart sounds: normal: S1, S2 - Gastrointestinal General gastrointestinal: hyperactive bowel sounds - Integumentary Integumentary: normal turgor - Neurologic Neurologic: CNII-XII intact - Musculoskeletal Musculoskeletal: gait normal, generalized weakness, strength equal bilaterally - Psychiatric Psychiatric: A&O x's 3, appropriate affect, intact judgment & insight - Labs CBC & Chem 7: 09/25/20 15:26 09/26/20 08:20 Labs: Abnormal Lab Results - Last 24 Hours (Table) 09/25/20 09/25/20 09/25/20 Range/Units 12: 15:26 15:26 RBC 2.02 L (4.30-5.90) m/uL Hgb 8.2 L (13.0-17.5) gm/dL Hct 23.3 L (39.0-53.0) % MCV 115.0 H (80.0-100.0) fL MCH 40.7 H (25.0-35.0) pg RDW 21.4 H (11.5-15.5) % Lymphocytes # 0.3 L (1.0-4.8) k/uL Macrocytosis Marked A Sodium 136 L (137-145) mmol/L BUN 47 H (9-20) mg/dL Glucose 207 H (74-99) mg/dL POC Glucose (mg/dL) 233 H (75-99) mg/dL Calcium 8.3 L (8.4-10.2) mg/dL Total Protein 5.8 L (6.3-8.2) g/dL Albumin 2.9 L (3.5-5.0) g/dL 09/25/20 09/25/20 09/26/20 Range/Units 17:35 20:53 06:41 RBC (4.30-5.90) m/uL Hgb (13.0-17.5) gm/dL Hct (39.0-53.0) % MCV (80.0-100.0) fL MCH (25.0-35.0) pg RDW (11.5-15.5) % Lymphocytes # (1.0-4.8) k/uL Macrocytosis Sodium (137-145) mmol/L BUN (9-20) mg/dL Glucose (74-99) mg/dL POC Glucose (mg/dL) 241 H 240 H 241 H (75-99) mg/dL Calcium (8.4-10.2) mg/dL Total Protein (6.3-8.2) g/dL Albumin (3.5-5.0) g/dL 09/26/20 Range/Units 08:20 RBC (4.30-5.90) m/uL Hgb (13.0-17.5) gm/dL Hct (39.0-53.0) % MCV (80.0-100.0) fL MCH (25.0-35.0) pg RDW (11.5-15.5) % Lymphocytes # (1.0-4.8) k/uL Macrocytosis Sodium (137-145) mmol/L BUN 42 H (9-20) mg/dL Glucose 241 H (74-99) mg/dL POC Glucose (mg/dL) (75-99) mg/dL Calcium 8.0 L (8.4-10.2) mg/dL Total Protein 5.3 L (6.3-8.2) g/dL Albumin 2.6 L (3.5-5.0) g/dL Microbiology - Last 24 Hours (Table) 09/25/20 17:00 Urine Culture - Preliminary Urine,Clean Catch 09/24/20 23:07 Blood Culture - Preliminary Blood No Growth after 24 hours 09/23/20 23:19 Blood Culture - Preliminary Blood No Growth after 48 hours 09/20/20 12:19 Blood Culture - Preliminary Blood No Growth after 120 hours Assessment and Plan Assessment: Acute covid 19 pneumonia Acute hypoxic respiratory failure Hypertension hypertensive cardiovascular disease History of dyslipidemia Obesity Elevated d-dimer and inflammatory parameters of Covid 19 pneumonia Plan: Continue supplemental oxygen given severity hypoxia consider BiPAP 09/29 with oxy gen to keep saturation over 88-90% Convalescent plasma IV steroids IV REMdesivir Anticoagulation Deep breathing exercise incentive spirometry Prone positioning Time with Patient: Greater than 30
[2020-09-26 12:37] LABS: Glucose,Whole Blood 450 mg/dL (75-99)
[2020-09-26 17:26] LABS: Glucose,Whole Blood 236 mg/dL (75-99)
[2020-09-26] MEDS: ALPRAZolam 0.25 MG TAB PO PRN (19:56)
[2020-09-26] MEDS: ATORVASTATIN 40 MG TAB PO SCH (19:56)
[2020-09-26 20:01] LABS: Glucose,Whole Blood 185 mg/dL (75-99)
[2020-09-26] MEDS: REMDESIVIR 100 MG in SODIUM CHLORIDE 0.9% 250 ML IVPB SCH (22:02)
--- NOTE | 2020-09-26 23:17 | PN ---
PROGRESS NOTE DATE OF SERVICE: 09/26/2020 REASON FOR FOLLOWUP: COVID-19 pneumonia. INTERVAL HISTORY: The patient is currently afebrile. He is breathing slightly comfortably and denies having any chest pain. He did have some cough, not bringing any sputum. No nausea. No vomiting. No abdominal pain. No diarrhea. PHYSICAL EXAMINATION: Blood pressure 144/79, pulse 82, temp 97.9. General description is a middle-aged male lying in bed in no distress. Respiratory: Unlabored breathing. Decreased intensity breath sounds. No wheeze. HEART: S1, S2. Regular rate and rhythm. Abdomen soft, no tenderness. LABS: BUN of 22, creatinine 1.0. DIAGNOSTIC IMPRESSION AND PLAN: Patient with acute COVID-19 pneumonia in this patient did have clinical improvement compared to yesterday. Patient to continue with Solu-Medrol, Remdesivir, respiratory support and monitor clinical course closely. MMODL / IJN: [id number] /
[2020-09-27] MEDS: CEFEPIME 2 GM in SODIUM CHLORIDE 0.9% 100 ML IVPB SCH ×3 (01:02→21:53)
[2020-09-27] MEDS: methylPREDNISolone SOD SUCCI 125 MG/2 ML VIAL IV SCH ×5 (01:02→23:47)
[2020-09-27] MEDS: INSULIN ASPART (NovoLOG) 100 UNIT/ML VIAL SQ SCH ×4 (06:23→20:45)
[2020-09-27] MEDS: PANTOPRAZOLE 40 MG TABLET PO SCH (06:23)
[2020-09-27 06:24] LABS: Glucose,Whole Blood 242 mg/dL (75-99)
[2020-09-27] MEDS: ALBUTEROL HFA INHALER INHALATION SCH ×5 (08:37→20:28)
[2020-09-27] MEDS: lisinopriL 20 MG TAB PO SCH (08:38)
[2020-09-27] MEDS: metFORMIN 500 MG TAB PO SCH ×4 (08:38→20:45)
[2020-09-27] MEDS: APIXABAN 5 MG TAB PO SCH ×2 (08:38→19:37)
[2020-09-27] MEDS: ZINC SULFATE 220 MG CAP PO SCH (08:38)
[2020-09-27] MEDS: METOPROLOL TARTRATE 50 MG TAB PO SCH (08:38)
[2020-09-27] MEDS: CYANOCOBALAMIN 1,000 MCG/ML 1 ML VIAL IM SCH (08:39)
[2020-09-27] MEDS: glipiZIDE 5 MG TAB PO SCH ×4 (08:39→20:45)
[2020-09-27] MEDS: FOLIC ACID 1 MG TAB PO SCH (08:39)
[2020-09-27] MEDS: amLODIPine 10 MG TAB PO SCH (08:39)
[2020-09-27 09:22] LABS: African American GFR (CKD) >90 (>60 ml/min/1.73 sqM); Anion Gap 9 mmol/L; Blood Urea Nitrogen 39 mg/dL (9-20); Calcium 8.1 mg/dL (8.4-10.2); Carbon Dioxide 25 mmol/L (22-30); Chloride 103 mmol/L (98-107); Glucose 226 mg/dL (74-99); Non-African American GFR(CKD) >90 (>60 ml/min/1.73 sqM); Sodium 137 mmol/L (137-145)
[2020-09-27 09:25] LABS: Potassium 4.3 mmol/L (3.5-5.1)
[2020-09-27 09:27] LABS: Anisocytosis Moderate; HCT 27.3 % (39.0-53.0); HGB 9.4 gm/dL (13.0-17.5); Hypochromasia Slight; MCH 39.1 pg (25.0-35.0); MCHC 34.5 g/dL (31.0-37.0); MCV 113.4 fL (80.0-100.0); Macrocytosis Marked; Mean Platelet Volume 9.4; Platelet Count 227 k/uL (150-450); Poikilocytosis Slight; RBC 2.41 m/uL (4.30-5.90); RDW 20.8 % (11.5-15.5); WBC 5.9 k/uL (3.8-10.6)
[2020-09-27 11:04] LABS: Band Neutrophils % 1 %; Monocytes # (M) 0.12 k/uL (0-1.0); Neutrophils % (M) 80 %; Nucleated Red Blood Cells 0 /100 WBC (0-0); Total Cells Counted 100
[2020-09-27 11:05] LABS: Polychromasia Present; Stomatocytes Present
[2020-09-27 12:23] LABS: Glucose,Whole Blood 293 mg/dL (75-99)
[2020-09-27 17:35] LABS: Glucose,Whole Blood 274 mg/dL (75-99)
[2020-09-27] MEDS: REMDESIVIR 100 MG in SODIUM CHLORIDE 0.9% 250 ML IVPB SCH (19:36)
[2020-09-27] MEDS: ATORVASTATIN 40 MG TAB PO SCH (19:37)
[2020-09-27 20:13] LABS: Glucose,Whole Blood 347 mg/dL (75-99)
--- NOTE | 2020-09-27 21:03 | PN ---
PROGRESS NOTE DATE OF SERVICE: 09/27/2020 REASON FOR FOLLOWUP: Pneumonia. INTERVAL HISTORY: Patient was to be seen this afternoon. The patient currently with no fever for the last 3 days. The patient was on the phone and mentioned he did talk on the phone and did not answer any questions and refused to be examined. PHYSICAL EXAMINATION: Blood pressure 132/78 with a pulse of 81, temperature 98.1. He is 100% on BiPAP. His exam could not be completed as this patient uncooperative. LABS: Hemoglobin 9.4, white count 5.9, BUN of 39, creatinine 0.74. DIAGNOSTIC IMPRESSION AND PLAN: Patient with acute pneumonia Covid 19 infection. The patient treated with Remdesivir, Solu-Medrol and iron sulfate. Subsequently did have a fever, concern for possibly cefepime was added and his fever has resolved. Will try to obtain a sputum and monitor clinical course closely. MMODL / IJN: [id number] /
[2020-09-27] MEDS: ALPRAZolam 0.25 MG TAB PO PRN (21:52)
--- NOTE | 2020-09-28 00:02 | P.PN ---
Subjective Progress Note Date: 09/28/20 Principal diagnosis: Acute covid 19 pneumonia Acute hypoxic respiratory failure Hypertension hypertensive cardiovascular disease History of dyslipidemia Obesity Elevated d-dimer and inflammatory parameters of Covid 19 pneumonia 09/27/2020, patient seen eval examined during the rounds remains on BiPAP 12 and 6 and 100% oxygen, saturation is 90%, chest x-ray reviewed no significant change, patient could not tolerate high flow oxygen desaturated, relatively more stable on BiPAP, discussed with the patient recommended and advise prone positioning as much as possible, 09/26/2020, patient seen eval examined during the rounds still hypoxic short of breath, oxygen saturation is coming down into mid to low 90s on high flow oxygen, patient will require the BiPAP, care plan discussed with the staff nurse will initiate BiPAP with high flow oxygen patient also will benefit from convulsant plasma Patient seen and evaluated examined on third floor, patient has been diagnosed as covert 19 pneumonia and acute hypoxic respiratory failure patient is being seen by infectious disease services has been started on IV REM the liver, also on Decadron, chest x-ray performed yesterday continue show bilateral fluffy and alveolar infiltrate with early ARDS-like appearance, review of the data revealed that patient has significant risk factors of diabetes mellitus hypertension hype rtensive cardiovascular disease dyslipidemia chronic anemia patient sees Dr. Gaytan for primary care activities, it seems like symptoms started about a week ago with progressive cough shortness of breath, on arrival he was found to be febrile with a fever of 101 Objective - Vital Signs Vital signs: Vital Signs Temp 97.8 F 09/27/20 22:01 Pulse 77 09/27/20 22:01 Resp 22 09/27/20 22:01 BP 133/79 09/27/20 22:01 Pulse Ox 90 L 09/27/20 22:01 Intake & Output 09/27/20 09/27/20 09/28/20 06:59 18:59 06:59 Intake Total 350 340 Output Total 200 Balance 150 340 Weight 76 kg Intake: Intake, IV Titration 100 Amount Cefepime 2 gm In Sodium 100 Chloride 0.9% 100 ml @ 25 mls/hr IVPB Q12HR [facility] Rx #:[id number] Oral 240 Blood Product 350 Ffp Convalescent Plasma 350 Cpd Unit [id number] Output: Urine 200 Other: Voiding Method Urinal Urinal # Voids 1 1 - Exam - Constitutional General appearance: average body habitus, disheveled, mild distress - EENT Eyes: PERRLA Ears: bilateral: normal - Neck Neck: normal ROM Carotids: bilateral: upstroke normal Thyroid: bilateral: normal size - Respiratory Respiratory: bilateral: diminished - Cardiovascular Rhythm: regular Heart sounds: normal: S1, S2 - Gastrointestinal General gastrointestinal: hyperactive bowel sounds - Integumentary Integumentary: normal turgor - Neurologic Neurologic: CNII-XII intact - Musculoskeletal Musculoskeletal: gait normal, generalized weakness, strength equal bilaterally - Psychiatric Psychiatric: A&O x's 3, appropriate affect, intact judgment & insight - Labs CBC & Chem 7: 09/27/20 08:37 09/27/20 08:37 Labs: Abnormal Lab Results - Last 24 Hours (Table) 09/27/20 09/27/20 09/27/20 Range/Units 06:15 08:37 08:37 RBC 2.41 L (4.30-5.90) m/uL Hgb 9.4 L (13.0-17.5) gm/dL Hct 27.3 L (39.0-53.0) % MCV 113.4 H (80.0-100.0) fL MCH 39.1 H (25.0-35.0) pg RDW 20.8 H (11.5-15.5) % Macrocytosis Marked A BUN 39 H (9-20) mg/dL Glucose 226 H (74-99) mg/dL POC Glucose (mg/dL) 242 H (75-99) mg/dL Calcium 8.1 L (8.4-10.2) mg/dL 09/27/20 09/27/20 09/27/20 Range/Units 11:54 17:09 20:11 RBC (4.30-5.90) m/uL Hgb (13.0-17.5) gm/dL Hct (39.0-53.0) % MCV (80.0-100.0) fL MCH (25.0-35.0) pg RDW (11.5-15.5) % Macrocytosis BUN (9-20) mg/dL Glucose (74-99) mg/dL POC Glucose (mg/dL) 293 H 274 H 347 H (75-99) mg/dL Calcium (8.4-10.2) mg/dL Microbiology - Last 24 Hours (Table) 09/25/20 17:00 Urine Culture - Final Urine,Clean Catch 09/24/20 23:07 Blood Culture - Preliminary Blood No Growth after 48 hours 09/23/20 23:19 Blood Culture - Preliminary Blood No Growth after 72 hours Assessment and Plan Assessment: Acute covid 19 pneumonia Acute hypoxic respiratory failure Hypertension hypertensive cardiovascular disease History of dyslipidemia Obesity Elevated d-dimer and inflammatory parameters of Covid 19 pneumonia Plan: Continue supplemental oxygen given severity hypoxia, continue BiPAP 09/29 with oxygen to keep saturation over 88-90% Status post Convalescent plasma IV steroids IV REMdesivir Anticoagulation Deep breathing exercise incentive spirometry Prone positioning Time with Patient: Greater than 30
--- NOTE | 2020-09-28 03:20 | P.PN ---
Subjective Progress Note Date: 09/26/20 Principal diagnosis: Acute hypoxic respiratory failure secondary to COVID-19 pneumonia Patient is a 60-year-old male was admitted to the hospital due to acute COVID-19 pneumonia and had bilateral pneumonia and acute hypoxic respiratory failure. Patient is on submental oxygen. 09/26/2020 Patient is currently lying in the bed awake alert and oriented x3. Requiring BiPAP. Currently on 100% FiO2. Pulmonary is following. Patient is being continued on methylprednisolone and anticoagulation with Eliquis. Patient is also being continued on antibiotic in the form of cefepime. Pulmonary and ID is on board. Patient has been afebrile. Laboratory data showed sodium 137, potassium 4.0, BUN 42 and creatinine 1.0 Albumin level is 2.6 and blood sugar is elevated due to steroids. No complaints of chest pain. Patient does have shortness of breath and ti ghtness. No nausea vomiting or abdominal pain or diarrhea. No dysuria or hematuria. Does have cough without sputum production . All other review of systems negative except as above. Current medications reviewed. Objective - Vital Signs Vital signs: Vital Signs Temp 99.2 F 09/26/20 15:54 Pulse 80 09/26/20 15:54 Resp 20 09/26/20 15:54 BP 131/73 09/26/20 15:54 Pulse Ox 97 09/26/20 15:54 Intake & Output 09/25/20 09/26/20 09/26/20 18:59 06:59 18:59 Intake Total 540 300 Output Total 550 150 Balance -10 150 Weight 77 kg 76.5 kg Intake: Intake, IV Titration 100 Amount Cefepime 2 gm In Sodium 100 Chloride 0.9% 100 ml @ 25 mls/hr IVPB Q12HR [facility] Rx #:[id number] Oral 540 200 Output: Urine 550 150 Other: Voiding Method Bedside Commode Urinal # Voids 2 - Exam PHYSICAL EXAMINATION: Patient is lying in the bed comfortably, no acute distress, awake alert and oriented.. HEENT: Normocephalic. Neck is supple. Pupils reactive. Nostrils clear. Oral cavity is moist. Ears reveal no drainage. Neck reveals no JVD, carotid bruits, or thyromegaly. CHEST EXAMINATION: Trachea is central. Symmetrical expansion. Diffuse coarse breath sounds and scattered rhonchi. Nonlabored breathing.. CARDIAC: Normal S1, S2 with no gallops. No murmurs ABDOMEN: Soft. Bowel sounds normal. No organomegaly. No abdominal bruits. Extremities: reveal no edema. No clubbing or cyanosis Neurologically awake, alert, oriented x3 with well-coordinated movements. No focal deficits noted Skin: No rash or skin lesions. Psychiatric: Coperative. Nonsuicidal Musculoskeletal: No joint swelling or deformity. Normal range of motion. - Labs CBC & Chem 7: 09/27/20 08:37 09/27/20 08:37 Labs: Abnormal Lab Results - Last 24 Hours (Table) 09/25/20 09/25/20 09/26/20 Range/Units 17:35 20:53 06:41 BUN (9-20) mg/dL Glucose (74-99) mg/dL POC Glucose (mg/dL) 241 H 240 H 241 H (75-99) mg/dL Calcium (8.4-10.2) mg/dL Total Protein (6.3-8.2) g/dL Albumin (3.5-5.0) g/dL 09/26/20 09/26/20 Range/Units 08:20 12:07 BUN 42 H (9-20) mg/dL Glucose 241 H (74-99) mg/dL POC Glucose (mg/dL) 450 H (75-99) mg/dL Calcium 8.0 L (8.4-10.2) mg/dL Total Protein 5.3 L (6.3-8.2) g/dL Albumin 2.6 L (3.5-5.0) g/dL Microbiology - Last 24 Hours (Table) 09/20/20 12:19 Blood Culture - Final Blood No Growth after 144 hours 09/25/20 17:00 Urine Culture - Preliminary Urine,Clean Catch 09/24/20 23:07 Blood Culture - Preliminary Blood No Growth after 24 hours 09/23/20 23:19 Blood Culture - Preliminary Blood No Growth after 48 hours Assessment and Plan Assessment: Acute bilateral interstitial pneumonia secondary to acute COVID-19 pneumonia. Possible sepsis and Acute hypoxic respiratory failure requiring BiPAP Fever secondary to COVID-19 infection present on admission Elevated troponin level likely due to sepsis. 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 Elevated procalcitonin level Elevated inflammatory markers Diabetes type 2 Hypertension Hyperlipidemia Degenerative joint disease Obesity with BMI 36.6 Full code Plan: Patient will be continued on BiPAP and titrate FiO2. Pulmonary is on board. Continue with methylprednisolone, Eliquis and vitamin supplementation. Continue with home medications and titrate insulin dose. Follow-up closely and further recommendations based on the clinical course. Pulmonary and ID is on board. Time with Patient: Greater than 30
--- NOTE | 2020-09-28 03:24 | P.PN ---
Subjective Progress Note Date: 09/27/20 Principal diagnosis: Acute hypoxic respiratory failure secondary to COVID-19 pneumonia Patient is a 60-year-old male was admitted to the hospital due to acute COVID-19 pneumonia and had bilateral pneumonia and acute hypoxic respiratory failure. Patient is on submental oxygen. 09/26/2020 Patient is currently lying in the bed awake alert and oriented x3. Requiring BiPAP. Currently on 100% FiO2. Pulmonary is following. Patient is being continued on methylprednisolone and anticoagulation with Eliquis. Patient is also being continued on antibiotic in the form of cefepime. Pulmonary and ID is on board. Patient has been afebrile. Laboratory data showed sodium 137, potassium 4.0, BUN 42 and creatinine 1.0 Albumin level is 2.6 and blood sugar is elevated due to steroids. 09/27/2020 Patient is currently on partial nonrebreather. Off BiPAP this morning. No complaints of chest pain. Shortness of breath is improving. Patient is being continued on IV Solu-Medrol and Eliquis anticoagulation. Continued on vitamin supplementation. Patient has been afebrile. Patient was seen by hematology due to anemia and thrombocytopenia. Patient was found to have severe B12 deficiency and was started on IM B12 injections. Monitor H&H. Hemoglobin level is 9.4 today. No complaints of chest pain. Patient does have shortness of breath and tightness. No nausea vomiting or abdominal pain or diarrhea. No dysuria or hematuria. Does have cough without sputum production . All other review of systems negative except as above. Current medications reviewed. Objective - Vital Signs Vital signs: Vital Signs Temp 98.2 F 09/27/20 16:00 Pulse 78 09/27/20 16:00 Resp 24 09/27/20 16:00 BP 100/55 09/27/20 16:00 Pulse Ox 80 L 09/27/20 16:00 Intake & Output 09/26/20 09/27/20 09/27/20 18:59 06:59 18:59 Intake Total 540 350 340 Output Total 150 200 Balance 390 150 340 Weight 76 kg Intake: Intake, IV Titration 100 100 Amount Cefepime 2 gm In Sodium 100 100 Chloride 0.9% 100 ml @ 25 mls/hr IVPB Q12HR [facility] Rx #:[id number] Oral 440 240 Blood Product 350 Ffp Convalescent Plasma 350 Cpd Unit [id number] Output: Urine 150 200 Other: Voiding Method Urinal # Voids 2 1 1 - Exam PHYSICAL EXAMINATION: Patient is lying in the bed comfortably, no acute distress, awake alert and oriented.. HEENT: Normocephalic. Neck is supple. Pupils reactive. Nostrils clear. Oral cavity is moist. Ears reveal no drainage. Neck reveals no JVD, carotid bruits, or thyromegaly. CHEST EXAMINATION: Trachea is central. Symmetrical expansion. Diffuse coarse breath sounds and scattered rhonchi. Nonlabored breathing.. CARDIAC: Normal S1, S2 with no gallops. No murmurs ABDOMEN: Soft. Bowel sounds normal. No organomegaly. No abdominal bruits. Extremities: reveal no edema. No clubbing or cyanosis Neurologically awake, alert, oriented x3 with well-coordinated movements. No focal deficits noted Skin: No rash or skin lesions. Psychiatric: Coperative. Nonsuicidal Musculoskeletal: No joint swelling or deformity. Normal range of motion. - Labs CBC & Chem 7: 09/27/20 08:37 09/27/20 08:37 Labs: Abnormal Lab Results - Last 24 Hours (Table) 09/26/20 09/27/20 09/27/20 Range/Units 19:58 06:15 08:37 RBC 2.41 L (4.30-5.90) m/uL Hgb 9.4 L (13.0-17.5) gm/dL Hct 27.3 L (39.0-53.0) % MCV 113.4 H (80.0-100.0) fL MCH 39.1 H (25.0-35.0) pg RDW 20.8 H (11.5-15.5) % Macrocytosis Marked A BUN (9-20) mg/dL Glucose (74-99) mg/dL POC Glucose (mg/dL) 185 H 242 H (75-99) mg/dL Calcium (8.4-10.2) mg/dL 09/27/20 09/27/20 Range/Units 08:37 11:54 RBC (4.30-5.90) m/uL Hgb (13.0-17.5) gm/dL Hct (39.0-53.0) % MCV (80.0-100.0) fL MCH (25.0-35.0) pg RDW (11.5-15.5) % Macrocytosis BUN 39 H (9-20) mg/dL Glucose 226 H (74-99) mg/dL POC Glucose (mg/dL) 293 H (75-99) mg/dL Calcium 8.1 L (8.4-10.2) mg/dL Microbiology - Last 24 Hours (Table) 09/25/20 17:00 Urine Culture - Final Urine,Clean Catch 09/24/20 23:07 Blood Culture - Preliminary Blood No Growth after 48 hours 09/23/20 23:19 Blood Culture - Preliminary Blood No Growth after 72 hours 09/20/20 12:19 Blood Culture - Final Blood No Growth after 144 hours Assessment and Plan Assessment: Acute bilateral interstitial pneumonia secondary to acute COVID-19 pneumonia. Possible sepsis and Acute hypoxic respiratory failure requiring BiPAP Fever secondary to COVID-19 infection present on admission Elevated troponin level likely due to sepsis. 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 Severe B12 deficiency and macrocytic anemia. Thrombocytopenia likely due to viral infection. Elevated procalcitonin level Elevated inflammatory markers Diabetes type 2 Hypertension Hyperlipidemia Degenerative joint disease Obesity with BMI 36.6 Full code Plan: Patient will be continued on BiPAP and titrate FiO2. Pulmonary is on board. Continue with methylprednisolone, Eliquis and vitamin supplementation. Continue with home medications and titrate insulin dose. Follow-up closely and further recommendations based on the clinical course. Pulmonary and ID is on board. Time with Patient: Greater than 30
[2020-09-28 06:11] LABS: Glucose,Whole Blood 313 mg/dL (75-99)
[2020-09-28] MEDS: methylPREDNISolone SOD SUCCI 125 MG/2 ML VIAL IV SCH ×2 (06:39→12:42)
[2020-09-28] MEDS: PANTOPRAZOLE 40 MG TABLET PO SCH (06:51)
[2020-09-28] MEDS: INSULIN ASPART (NovoLOG) 100 UNIT/ML VIAL SQ SCH ×4 (06:51→21:35)
[2020-09-28] MEDS: ALBUTEROL HFA INHALER INHALATION SCH ×4 (07:31→21:34)
[2020-09-28] MEDS: ZINC SULFATE 220 MG CAP PO SCH (09:19)
[2020-09-28] MEDS: metFORMIN 500 MG TAB PO SCH ×4 (09:19→21:35)
[2020-09-28] MEDS: FOLIC ACID 1 MG TAB PO SCH (09:20)
[2020-09-28] MEDS: glipiZIDE 5 MG TAB PO SCH ×4 (09:20→21:35)
[2020-09-28] MEDS: CEFEPIME 2 GM in SODIUM CHLORIDE 0.9% 100 ML IVPB SCH ×2 (09:20→19:44)
[2020-09-28] MEDS: lisinopriL 20 MG TAB PO SCH (09:20)
[2020-09-28] MEDS: METOPROLOL TARTRATE 50 MG TAB PO SCH (09:20)
[2020-09-28] MEDS: amLODIPine 10 MG TAB PO SCH (09:20)
[2020-09-28] MEDS: APIXABAN 5 MG TAB PO SCH ×2 (09:20→19:43)
[2020-09-28] MEDS: CYANOCOBALAMIN 1,000 MCG/ML 1 ML VIAL IM SCH (09:33)
[2020-09-28 12:15] LABS: Glucose,Whole Blood 382 mg/dL (75-99)
--- NOTE | 2020-09-28 15:21 | P.PN ---
Subjective Acute hypoxic respiratory failure secondary to COVID-19 pneumonia Patient is a 60-year-old male was admitted to the hospital due to acute COVID-19 pneumonia and had bilateral pneumonia and acute hypoxic respiratory failure. Patient is on submental oxygen. 09/26/2020 Patient is currently lying in the bed awake alert and oriented x3. Requiring BiPAP. Currently on 100% FiO2. Pulmonary is following. Patient is being con tinued on methylprednisolone and anticoagulation with Eliquis. Patient is also being continued on antibiotic in the form of cefepime. Pulmonary and ID is on board. Patient has been afebrile. Laboratory data showed sodium 137, potassium 4.0, BUN 42 and creatinine 1.0 Albumin level is 2.6 and blood sugar is elevated due to steroids. 09/27/2020 Patient is currently on partial nonrebreather. Off BiPAP this morning. No complaints of chest pain. Shortness of breath is improving. Patient is being continued on IV Solu-Medrol and Eliquis anticoagulation. Continued on vitamin supplementation. Patient has been afebrile. Patient was seen by hematology due to anemia and thrombocytopenia. Patient was found to have severe B12 deficiency and was started on IM B12 injections. Monitor H&H. Hemoglobin level is 9.4 today. 09/28/2020 She and is on high-dose steroids because of which patient blood sugars are elevated a patient was started on long-acting insulin at 20 units patient may need more. Patient is receiving 60 every 6 of Solu-Medrol which I'll try to cut it down. Patient is still requiring high amounts of oxygen. Patient is insisting on taking shower. Patient is presently on 60 L of oxygen. Since blood pressure is low amlodipine will be discontinued Constitutional: Denied any fatigue denied any fever. Cardio vascular: denied any chest pain, palpitations Gastrointestinal denied any nausea vomiting Pulmonary: Denied any shortness of breath cough Neurologic denied any new focal deficits All inpatient medications were reviewed and appropriate changes in these medications as dictated in the interval history and assessment and plan. Objective - Vital Signs Vital signs: Vital Signs Temp 98 F 09/28/20 12:00 Pulse 77 09/28/20 12:00 Resp 20 09/28/20 12:00 BP 99/57 09/28/20 12:00 Pulse Ox 96 09/28/20 12:00 Intake & Output 09/27/20 09/28/20 09/28/20 18:59 06:59 18:59 Intake Total 340 890 330 Output Total 350 Balance 340 540 330 Weight 103.5 kg Intake: Intake, IV Titration 100 350 Amount Cefepime 2 gm In Sodium 100 100 Chloride 0.9% 100 ml @ 25 mls/hr IVPB Q12HR [facility] Rx #:[id number] Remdesivir 100 mg In 250 Sodium Chloride 0.9% 250 ml @ 250 mls/hr IVPB HS [facility] Rx#:[id number] Oral 240 540 330 Output: Urine 350 Other: Voiding Method Urinal # Voids 1 1 1 - Exam PHYSICAL EXAMINATION: GENERAL: The patient is alert and oriented x3, not in any acute distress. Well developed, well nourished. HEENT: Pupils are round and equally reacting to light. EOMI. No scleral icterus. No conjunctival pallor. Normocephalic, atraumatic. No pharyngeal erythema. No thyromegaly. CARDIOVASCULAR: S1 and S2 present. No murmurs, rubs, or gallops. PULMONARY: Chest is clear to auscultation, no wheezing or crackles. ABDOMEN: Soft, nontender, nondistended, normoactive bowel sounds. No palpable organomegaly. MUSCULOSKELETAL: No joint swelling or deformity. EXTREMITIES: No cyanosis, clubbing, or pedal edema. NEUROLOGICAL: Gross neurological examination did not reveal any focal deficits. SKIN: No rashes. Note: Because of COVID 19 isolation, some of the history and physical exam findings are indirect and obtained from nursing staff, and other physician examinations to avoid unnecessary contact with the patient. - Labs CBC & Chem 7: 09/27/20 08:37 09/27/20 08:37 Labs: Abnormal Lab Results - Last 24 Hours (Table) 09/27/20 09/27/20 09/28/20 Range/Units 17:09 20:11 06:10 POC Glucose (mg/dL) 274 H 347 H 313 H (75-99) mg/dL 09/28/20 Range/Units 11:51 POC Glucose (mg/dL) 382 H (75-99) mg/dL Microbiology - Last 24 Hours (Table) 09/24/20 23:07 Blood Culture - Preliminary Blood No Growth after 72 hours 09/23/20 23:19 Blood Culture - Preliminary Blood No Growth after 96 hours Assessment and Plan Plan: Acute bilateral interstitial pneumonia secondary to acute COVID-19 pneumonia. And sepsis secondary to quit 19. Acute hypoxic respiratory failure requiring BiPAP Fever secondary to COVID-19 infection present on admission no fever now. Elevated troponin level likely due to sepsis. Elevated D-dimer without evidence of pulmonary embolism. Severe B12 deficiency and macrocytic anemia. Thrombocytopenia likely due to viral infection. Diabetes type 2: Elevated uncontrolled secondary to systemic steroids patient was started on long-acting insulin Hypertension Hyperlipidemia Degenerative joint disease Obesity with BMI 36.6 Full code
--- NOTE | 2020-09-28 15:44 | P.PN ---
Subjective Progress Note Date: 09/28/20 Principal diagnosis: Acute covid 19 pneumonia Acute hypoxic respiratory failure Hypertension hypertensive cardiovascular disease History of dyslipidemia Obesity Elevated d-dimer and inflammatory parameters of Covid 19 pneumonia 09/28/2020, patient seen eval examined during the rounds currently patient sitting upright on the bed getting and was high flow aerosolized oxygen, hemodynamically stable, saturation improved to 96%, we'll continue BiPAP however at nighttime though in during the day with use high flow oxygen to keep saturation over 90% 09/27/2020, patient seen eval examined during the rounds remains on BiPAP 12 and 6 and 100% oxygen, saturation is 90%, chest x-ray reviewed no significant change, patient could not tolerate high flow oxygen desaturated, relatively more stable on BiPAP, discussed with the patient recommended and advise prone positioning as much as possible, 09/26/2020, patient seen eval examined during the rounds still hypoxic short of breath, oxygen saturation is coming down into mid to low 90s on high flow oxygen, patient will require the BiPAP, care plan discussed with the staff nurse will initiate BiPAP with high flow oxygen patient also will benefit from convulsant plasma Patient seen and evaluated examined on third floor, patient has been diagnosed as covert 19 pneumonia and acute hypoxic respiratory failure patient is being seen by infectious disease services has been started on IV REM the liver, also on Decadron, chest x-ray performed yesterday continue show bilateral fluffy and alveolar infiltrate with early ARDS-like appearance, review of the data revealed that patient has significant risk factors of diabetes mellitus hypertension hypertensive cardiovascular disease dyslipidemia chronic anemia patient sees Dr. Gaytan for primary care activities, it seems like symptoms started about a week ago with progressive cough shortness of breath, on arrival he was found to be febrile with a fever of 101 Objective - Vital Signs Vital signs: Vital Signs Temp 98 F 09/28/20 12:00 Pulse 77 09/28/20 12:00 Resp 20 09/28/20 12:00 BP 99/57 09/28/20 12:00 Pulse Ox 96 09/28/20 12:00 Intake & Output 09/27/20 09/28/20 09/28/20 18:59 06:59 18:59 Intake Total 340 890 330 Output Total 350 Balance 340 540 330 Weight 103.5 kg Intake: Intake, IV Titration 100 350 Amount Cefepime 2 gm In Sodium 100 100 Chloride 0.9% 100 ml @ 25 mls/hr IVPB Q12HR [facility] Rx #:[id number] Remdesivir 100 mg In 250 Sodium Chloride 0.9% 250 ml @ 250 mls/hr IVPB HS [facility] Rx#:[id number] Oral 240 540 330 Output: Urine 350 Other: Voiding Method Urinal # Voids 1 1 1 - Exam - Constitutional General appearance: average body habitus, disheveled, mild distress - EENT Eyes: PERRLA Ears: bilateral: normal - Neck Neck: normal ROM Carotids: bilateral: upstroke normal Thyroid: bilateral: normal size - Respiratory Respiratory: bilateral: diminished - Cardiovascular Rhythm: regular Heart sounds: normal: S1, S2 - Gastrointestinal General gastrointestinal: hyperactive bowel sounds - Integumentary Integumentary: normal turgor - Neurologic Neurologic: CNII-XII intact - Musculoskeletal Musculoskeletal: gait normal, generalized weakness, strength equal bilaterally - Psychiatric Psychiatric: A&O x's 3, appropriate affect, intact judgment & insight - Labs CBC & Chem 7: 09/27/20 08:37 09/27/20 08:37 Labs: Abnormal Lab Results - Last 24 Hours (Table) 09/27/20 09/27/20 09/28/20 Range/Units 17:09 20:11 06:10 POC Glucose (mg/dL) 274 H 347 H 313 H (75-99) mg/dL 09/28/20 Range/Units 11:51 POC Glucose (mg/dL) 382 H (75-99) mg/dL Microbiology - Last 24 Hours (Table) 09/24/20 23:07 Blood Culture - Preliminary Blood No Growth after 72 hours 09/23/20 23:19 Blood Culture - Preliminary Blood No Growth after 96 hours Assessment and Plan Assessment: Acute covid 19 pneumonia Acute hypoxic respiratory failure Hypertension hypertensive cardiovascular disease History of dyslipidemia Obesity Elevated d-dimer and inflammatory parameters of Covid 19 pneumonia Plan: Continue supplemental oxygen given severity hypoxia, continue BiPAP 09/29 with oxygen at night, high flow aerosolized oxygen during the day and as needed Status post Convalescent plasma IV steroids Status post IV REMdesivir Anticoagulation Deep breathing exercise incentive spirometry Prone positioning Time with Patient: Greater than 30
[2020-09-28 17:27] LABS: Glucose,Whole Blood 317 mg/dL (75-99)
[2020-09-28] MEDS: methylPREDNISolone SOD SUCCI 40 MG/ML 1 ML VIAL IV SCH ×2 (17:58→23:04)
[2020-09-28] MEDS: ATORVASTATIN 40 MG TAB PO SCH (19:44)
[2020-09-28 20:54] LABS: Glucose,Whole Blood 345 mg/dL (75-99)
[2020-09-28] MEDS ORDERED: INSULIN DETEMIR (LEVEMIR) 100 UNIT/ML SYR SQ SCH (21:00)
[2020-09-28] MEDS: ALPRAZolam 0.25 MG TAB PO PRN (21:39)
--- NOTE | 2020-09-28 23:09 | PN ---
PROGRESS NOTE DATE OF SERVICE: 09/28/2020 REASON FOR FOLLOWUP: Pneumonia. INTERVAL HISTORY: The patient is currently afebrile. The patient is feeling better today. The patient denies having any chest pain. Minimal cough. No nausea or vomiting. No abdominal pain or diarrhea. PHYSICAL EXAMINATION: Blood pressure 129/73 with a pulse of 80. Temperature is 97.9. He is 97% on 50% FiO2. General description is a middle-aged male lying in bed in no distress. RESPIRATORY SYSTEM: Unlabored breathing with decreased intensity of breath sounds. No wheeze. HEART: S1, S2. Regular rate and rhythm. ABDOMEN: Soft. No tenderness. LABS: No new labs have been obtained today. Blood culture has been negative. DIAGNOSTIC IMPRESSION AND PLAN: Patient with acute COVID-19 infection with evidence of persistent fever with concern for possible pneumonia. The patient is currently covered with Levaquin, cefepime, Solu-Medrol, and has completed his 5-day course of remdesivir. Will repeat his chest x- ray tomorrow and continue with supportive care. MMODL / IJN: [id number] /
[2020-09-29 06:27] LABS: Glucose,Whole Blood 326 mg/dL (75-99)
[2020-09-29] MEDS: PANTOPRAZOLE 40 MG TABLET PO SCH (06:37)
[2020-09-29] MEDS: INSULIN ASPART (NovoLOG) 100 UNIT/ML VIAL SQ SCH ×4 (06:37→22:00)
[2020-09-29] MEDS: ALBUTEROL HFA INHALER INHALATION SCH ×4 (07:48→19:26)
[2020-09-29 08:43] LABS: ALT 27 U/L (4-49); AST 29 U/L (17-59); African American GFR (CKD) >90 (>60 ml/min/1.73 sqM); Albumin 2.9 g/dL (3.5-5.0); Alkaline Phosphatase 70 U/L (38-126); Anion Gap 7 mmol/L; Blood Urea Nitrogen 44 mg/dL (9-20); C Reactive Protein 51.9 mg/L (<10.0); Calcium 8.4 mg/dL (8.4-10.2); Carbon Dioxide 24 mmol/L (22-30); Chloride 106 mmol/L (98-107); Glucose 287 mg/dL (74-99); LDH 1805 U/L (313-618); Non-African American GFR(CKD) >90 (>60 ml/min/1.73 sqM); Potassium 4.4 mmol/L (3.5-5.1); Sodium 137 mmol/L (137-145); Total Bilirubin 1.1 mg/dL (0.2-1.3)
[2020-09-29 08:55] LABS: Anisocytosis Moderate; Basophils % (A) 0 %; Eosinophils % (A) 0 %; HCT 30.1 % (39.0-53.0); HGB 9.6 gm/dL (13.0-17.5); Hypochromasia Moderate; Lymphocytes # (A) 0.3 k/uL (1.0-4.8); Lymphocytes % (A) 5 %; MCH 37.1 pg (25.0-35.0); MCHC 31.8 g/dL (31.0-37.0); MCV 116.6 fL (80.0-100.0); Macrocytosis Marked; Mean Platelet Volume 8.6; Monocytes # (A) 0.3 k/uL (0-1.0); Monocytes % (A) 5 %; Neutrophils # (A) 5.3 k/uL (1.3-7.7); Neutrophils % (A) 87 %; Platelet Count 445 k/uL (150-450); Poikilocytosis Slight; RBC 2.58 m/uL (4.30-5.90); RDW 21.2 % (11.5-15.5); WBC 6.2 k/uL (3.8-10.6)
--- NOTE | 2020-09-29 09:24 | XR ---
EXAMINATION TYPE: XR chest 1V portable DATE OF EXAM: 09/29/2020 COMPARISON: Prior chest x-ray 09/24/2020 HISTORY: Pneumonia TECHNIQUE: Single frontal view of the chest is obtained. FINDINGS: Bilateral airspace disease is again seen. Patient is rotated. No evident pneumothorax or p leural effusion. Heart is stable. Aorta is dense. IMPRESSION: Findings consistent with patient's history of pneumonia.
[2020-09-29 10:57] LABS: Hypersegmented Neutrophils Present; Polychromasia Present
[2020-09-29 10:59] LABS: Mixed Population RBC Present
[2020-09-29] MEDS: ZINC SULFATE 220 MG CAP PO SCH (11:06)
[2020-09-29] MEDS: lisinopriL 20 MG TAB PO SCH (11:06)
[2020-09-29] MEDS: metFORMIN 500 MG TAB PO SCH ×4 (11:06→22:00)
[2020-09-29] MEDS: METOPROLOL TARTRATE 50 MG TAB PO SCH (11:06)
[2020-09-29] MEDS: FOLIC ACID 1 MG TAB PO SCH (11:06)
[2020-09-29] MEDS: APIXABAN 5 MG TAB PO SCH ×2 (11:06→19:51)
--- NOTE | 2020-09-29 11:06 | P.PN ---
Subjective Progress Note Date: 09/29/20 Principal diagnosis: Acute covid 19 pneumonia Acute hypoxic respiratory failure Hypertension hypertensive cardiovascular disease History of dyslipidemia Obesity Elevated d-dimer and inflammatory parameters of Covid 19 pneumonia 09/29/2020, patient seen eval examined during the rounds labs reviewed medications reviewed remains on the ferrous lysed high flow oxygen, breathing slightly better, currently on 15 L 65%, chest x-ray performed today remains stable 09/28/2020, patient seen eval examined during the rounds currently patient sitting upright on the bed getting and was high flow aerosolized oxygen, hemodynamically stable, saturation improved to 96%, we'll continue BiPAP however at nighttime though in during the day with use high flow oxygen to keep saturation over 90% 09/27/2020, patient seen eval examined during the rounds remains on BiPAP 12 and 6 and 100% oxygen, saturation is 90%, chest x-ray reviewed no significant change, patient could not tolerate high flow oxygen desaturated, relatively more stable on BiPAP, discussed with the patient recommended and advise prone positioning as much as possible, 09/26/2020, patient seen eval examined during the rounds still hypoxic short of breath, oxygen saturation is coming down into mid to low 90s on high flow oxygen, patient will require the BiPAP, care plan discussed with the staff nurse will initiate BiPAP with high flow oxygen patient also will benefit from convulsant plasma Patient seen and evaluated examined on third floor, patient has been diagnosed as covert 19 pneumonia and acute hypoxic respiratory failure patient is being seen by infectious disease services has been started on IV REM the liver, also on Decadron, chest x-ray performed yesterday continue show bilateral fluffy and alveolar infiltrate with early ARDS-like appearance, review of the data revealed that patient has significant risk factors of diabetes mellitus hypertension hypertensive cardiovascular disease dyslipidemia chronic anemia patient sees Dr. Gaytan for primary care activities, it seems like symptoms started about a week ago with progressive cough shortness of breath, on arrival he was found to be febrile with a fever of 101 Objective - Vital Signs Vital signs: Vital Signs Temp 97.9 F 09/28/20 19:56 Pulse 90 09/29/20 03:33 Resp 21 09/29/20 03:33 BP 131/75 09/29/20 03:33 Pulse Ox 100 09/29/20 03:33 Intake & Output 09/28/20 09/29/20 09/29/20 18:59 06:59 18:59 Intake Total 450 Balance 450 Weight 105.5 kg Intake: Oral 450 Other: # Voids 1 4 # Bowel Movements 1 - Exam - Constitutional General appearance: average body habitus, disheveled, mild distress - EENT Eyes: PERRLA Ears: bilateral: normal - Neck Neck: normal ROM Carotids: bilateral: upstroke normal Thyroid: bilateral: normal size - Respiratory Respiratory: bilateral: diminished - Cardiovascular Rhythm: regular Heart sounds: normal: S1, S2 - Gastrointestinal General gastrointestinal: hyperactive bowel sounds - Integumentary Integumentary: normal turgor - Neurologic Neurologic: CNII-XII intact - Musculoskeletal Musculoskeletal: gait normal, generalized weakness, strength equal bilaterally - Psychiatric Psychiatric: A&O x's 3, appropriate affect, intact judgment & insight - Labs CBC & Chem 7: 09/29/20 07:54 09/29/20 07:54 Labs: Abnormal Lab Results - Last 24 Hours (Table) 09/28/20 09/28/20 09/28/20 Range/Units 11:51 17:19 20:52 RBC (4.30-5.90) m/uL Hgb (13.0-17.5) gm/dL Hct (39.0-53.0) % MCV (80.0-100.0) fL MCH (25.0-35.0) pg RDW (11.5-15.5) % Lymphocytes # (1.0-4.8) k/uL Macrocytosis D-Dimer (<0.60) mg/L FEU BUN (9-20) mg/dL Glucose (74-99) mg/dL POC Glucose (mg/dL) 382 H 317 H 345 H (75-99) mg/dL Lactate Dehydrogenase (313-618) U/L C-Reactive Protein (<10.0) mg/L Total Protein (6.3-8.2) g/dL Albumin (3.5-5.0) g/dL 09/29/20 09/29/20 09/29/20 Range/Units 06:26 07:54 07:54 RBC 2.58 L (4.30-5.90) m/uL Hgb 9.6 L (13.0-17.5) gm/dL Hct 30.1 L (39.0-53.0) % MCV 116.6 H (80.0-100.0) fL MCH 37.1 H (25.0-35.0) pg RDW 21.2 H (11.5-15.5) % Lymphocytes # 0.3 L (1.0-4.8) k/uL Macrocytosis Marked A D-Dimer (<0.60) mg/L FEU BUN 44 H (9-20) mg/dL Glucose 287 H (74-99) mg/dL POC Glucose (mg/dL) 326 H (75-99) mg/dL Lactate Dehydrogenase 1805 H (313-618) U/L C-Reactive Protein 51.9 H (<10.0) mg/L Total Protein 6.0 L (6.3-8.2) g/dL Albumin 2.9 L (3.5-5.0) g/dL 09/29/20 Range/Units 07:54 RBC (4.30-5.90) m/uL Hgb (13.0-17.5) gm/dL Hct (39.0-53.0) % MCV (80.0-100.0) fL MCH (25.0-35.0) pg RDW (11.5-15.5) % Lymphocytes # (1.0-4.8) k/uL Macrocytosis D-Dimer 7.91 H (<0.60) mg/L FEU BUN (9-20) mg/dL Glucose (74-99) mg/dL POC Glucose (mg/dL) (75-99) mg/dL Lactate Dehydrogenase (313-618) U/L C-Reactive Protein (<10.0) mg/L Total Protein (6.3-8.2) g/dL Albumin (3.5-5.0) g/dL Microbiology - Last 24 Hours (Table) 09/24/20 23:07 Blood Culture - Preliminary Blood No Growth after 96 hours 09/23/20 23:19 Blood Culture - Preliminary Blood No Growth after 120 hours Assessment and Plan Assessment: Acute covid 19 pneumonia Acute hypoxic respiratory failure Hypertension hypertensive cardiovascular disease History of dyslipidemia Obesity Elevated d-dimer and inflammatory parameters of Covid 19 pneumonia Plan: Continue supplemental oxygen given severity hypoxia, continue BiPAP 09/29 with oxygen at night, high flow aerosolized oxygen during the day and as needed Status post Convalescent plasma IV steroids Status post IV REMdesivir Anticoagulation Deep breathing exercise incentive spirometry Prone positioning Increase activity as tolerated Time with Patient: Greater than 30
[2020-09-29] MEDS: methylPREDNISolone SOD SUCCI 40 MG/ML 1 ML VIAL IV SCH ×3 (11:07→23:18)
[2020-09-29] MEDS: CYANOCOBALAMIN 1,000 MCG/ML 1 ML VIAL IM SCH ×2 (11:07→16:56)
[2020-09-29] MEDS: CEFEPIME 2 GM in SODIUM CHLORIDE 0.9% 100 ML IVPB SCH ×2 (11:07→19:52)
[2020-09-29] MEDS: glipiZIDE 5 MG TAB PO SCH ×4 (11:07→22:01)
--- NOTE | 2020-09-29 11:33 | P.PN ---
Subjective Acute hypoxic respiratory failure secondary to COVID-19 pneumonia Patient is a 60-year-old male was admitted to the hospital due to acute COVID-19 pneumonia and had bilateral pneumonia and acute hypoxic respiratory failure. Patient is on submental oxygen. 09/26/2020 Patient is currently lying in the bed awake alert and oriented x3. Requiring BiPAP. Currently on 100% FiO2. Pulmonary is following. Patient is being con tinued on methylprednisolone and anticoagulation with Eliquis. Patient is also being continued on antibiotic in the form of cefepime. Pulmonary and ID is on board. Patient has been afebrile. Laboratory data showed sodium 137, potassium 4.0, BUN 42 and creatinine 1.0 Albumin level is 2.6 and blood sugar is elevated due to steroids. 09/27/2020 Patient is currently on partial nonrebreather. Off BiPAP this morning. No complaints of chest pain. Shortness of breath is improving. Patient is being continued on IV Solu-Medrol and Eliquis anticoagulation. Continued on vitamin supplementation. Patient has been afebrile. Patient was seen by hematology due to anemia and thrombocytopenia. Patient was found to have severe B12 deficiency and was started on IM B12 injections. Monitor H&H. Hemoglobin level is 9.4 today. 09/28/2020 She and is on high-dose steroids because of which patient blood sugars are elevated a patient was started on long-acting insulin at 20 units patient may need more. Patient is receiving 60 every 6 of Solu-Medrol which I'll try to cut it down. Patient is still requiring high amounts of oxygen. Patient is insisting on taking shower. Patient is presently on 60 L of oxygen. Since blood pressure is low amlodipine will be discontinued 09/29/2020 Patient the blood sugars remain elevated patient received the first dose of long-acting insulin last night I'll increase the dose of long-acting insulin from 20 units to 32 units. Continue with sliding scale blood sugar elevation is secondary to systemic steroids and the patient's respiratory status remains fair ly the same without any worsening or improvement. Constitutional: Denied any fatigue denied any fever. Cardio vascular: denied any chest pain, palpitations Gastrointestinal denied any nausea vomiting Pulmonary: Denied any shortness of breath cough Neurologic denied any new focal deficits All inpatient medications were reviewed and appropriate changes in these medications as dictated in the interval history and assessment and plan. Objective - Vital Signs Vital signs: Vital Signs Temp 98.2 F 09/29/20 09:30 Pulse 99 09/29/20 09:30 Resp 16 09/29/20 09:30 BP 141/72 09/29/20 09:30 Pulse Ox 99 09/29/20 09:30 Intake & Output 09/28/20 09/29/20 09/29/20 18:59 06:59 18:59 Intake Total 450 Balance 450 Weight 105.5 kg Intake: Oral 450 Other: # Voids 1 4 # Bowel Movements 1 - Exam PHYSICAL EXAMINATION: GENERAL: The patient is alert and oriented x3, not in any acute distress. Well developed, well nourished. HEENT: Pupils are round and equally reacting to light. EOMI. No scleral icterus. No conjunctival pallor. Normocephalic, atraumatic. No pharyngeal erythema. No thyromegaly. CARDIOVASCULAR: S1 and S2 present. No murmurs, rubs, or gallops. PULMONARY: Chest is clear to auscultation, no wheezing or crackles. ABDOMEN: Soft, nontender, nondistended, normoactive bowel sounds. No palpable organomegaly. MUSCULOSKELETAL: No joint swelling or deformity. EXTREMITIES: No cyanosis, clubbing, or pedal edema. NEUROLOGICAL: Gross neurological examination did not reveal any focal deficits. SKIN: No rashes. Note: Because of COVID 19 isolation, some of the history and physical exam findings are indirect and obtained from nursing staff, and other physician examinations to avoid unnecessary contact with the patient. - Labs CBC & Chem 7: 09/29/20 07:54 09/29/20 07:54 Labs: Abnormal Lab Results - Last 24 Hours (Table) 09/28/20 09/28/20 09/28/20 Range/Units 11:51 17:19 20:52 RBC (4.30-5.90) m/uL Hgb (13.0-17.5) gm/dL Hct (39.0-53.0) % MCV (80.0-100.0) fL MCH (25.0-35.0) pg RDW (11.5-15.5) % Lymphocytes # (1.0-4.8) k/uL Macrocytosis D-Dimer (<0.60) mg/L FEU BUN (9-20) mg/dL Glucose (74-99) mg/dL POC Glucose (mg/dL) 382 H 317 H 345 H (75-99) mg/dL Lactate Dehydrogenase (313-618) U/L C-Reactive Protein (<10.0) mg/L Total Protein (6.3-8.2) g/dL Albumin (3.5-5.0) g/dL 09/29/20 09/29/20 09/29/20 Range/Units 06:26 07:54 07:54 RBC 2.58 L (4.30-5.90) m/uL Hgb 9.6 L (13.0-17.5) gm/dL Hct 30.1 L (39.0-53.0) % MCV 116.6 H (80.0-100.0) fL MCH 37.1 H (25.0-35.0) pg RDW 21.2 H (11.5-15.5) % Lymphocytes # 0.3 L (1.0-4.8) k/uL Macrocytosis Marked A D-Dimer (<0.60) mg/L FEU BUN 44 H (9-20) mg/dL Glucose 287 H (74-99) mg/dL POC Glucose (mg/dL) 326 H (75-99) mg/dL Lactate Dehydrogenase 1805 H (313-618) U/L C-Reactive Protein 51.9 H (<10.0) mg/L Total Protein 6.0 L (6.3-8.2) g/dL Albumin 2.9 L (3.5-5.0) g/dL 09/29/20 Range/Units 07:54 RBC (4.30-5.90) m/uL Hgb (13.0-17.5) gm/dL Hct (39.0-53.0) % MCV (80.0-100.0) fL MCH (25.0-35.0) pg RDW (11.5-15.5) % Lymphocytes # (1.0-4.8) k/uL Macrocytosis D-Dimer 7.91 H (<0.60) mg/L FEU BUN (9-20) mg/dL Glucose (74-99) mg/dL POC Glucose (mg/dL) (75-99) mg/dL Lactate Dehydrogenase (313-618) U/L C-Reactive Protein (<10.0) mg/L Total Protein (6.3-8.2) g/dL Albumin (3.5-5.0) g/dL Microbiology - Last 24 Hours (Table) 09/24/20 23:07 Blood Culture - Preliminary Blood No Growth after 96 hours 09/23/20 23:19 Blood Culture - Preliminary Blood No Growth after 120 hours Assessment and Plan Plan: Acute bilateral interstitial pneumonia secondary to acute COVID-19 pneumonia. And sepsis secondary to covid 19. Acute hypoxic respiratory failure requiring BiPAP Fever secondary to COVID-19 infection present on admission no fever now. Elevated troponin level likely due to sepsis. Elevated D-dimer without evidence of pulmonary embolism. Severe B12 deficiency and macrocytic anemia. Thrombocytopenia likely due to viral infection. Diabetes type 2: Elevated uncontrolled secondary to systemic steroids patient was started on long-acting insulin of which is being increased today blood sugars remain uncontrolled. Hypertension Hyperlipidemia Degenerative joint disease Obesity with BMI 36.6 Full code
[2020-09-29 12:12] LABS: Glucose,Whole Blood 291 mg/dL (75-99)
[2020-09-29 17:25] LABS: Glucose,Whole Blood 250 mg/dL (75-99)
[2020-09-29] MEDS: ATORVASTATIN 40 MG TAB PO SCH (19:51)
[2020-09-29 20:25] LABS: Glucose,Whole Blood 252 mg/dL (75-99)
[2020-09-29] MEDS ORDERED: INSULIN DETEMIR (LEVEMIR) 100 UNIT/ML SYR SQ SCH (21:00)
[2020-09-29] MEDS: ALPRAZolam 0.25 MG TAB PO PRN (22:01)
--- NOTE | 2020-09-29 23:16 | PN ---
PROGRESS NOTE DATE OF SERVICE: 09/29/2020 REASON FOR FOLLOWUP: Acute COVID-19 pneumonia. INTERVAL HISTORY: The patient is currently afebrile. The patient is breathing slightly comfortably. The patient denies having any chest pain or shortness of breath. Minimal cough. No nausea, vomiting, abdominal pain or diarrhea. PHYSICAL EXAMINATION: Blood pressure 119/60 with a pulse of 87, temperature 97.9. He is 93% on high-flow oxygen. General description is a middle-aged male lying in bed in no distress. RESPIRATORY SYSTEM: Unlabored breathing with decreased intensity of breath sounds. No wheeze. HEART: S1, S2. Regular rate and rhythm. ABDOMEN: Soft. No tenderness. LABS: The patient still has elevated inflammatory markers. Procalcitonin is 0.11. D-dimer 7.91. DIAGNOSTIC IMPRESSION AND PLAN: Patient with acute COVID-19 pneumonia in this patient currently covered with Eliquis, Solu-Medrol, zinc, and he has completed his remdesivir therapy. He has also completed antibiotics. In view of elevated procalcitonin, try to obtain a sputum sample to narrow down his antibiotics and continue with supportive care. MMODL / IJN: [id number] /
[2020-09-30 06:18] LABS: Glucose,Whole Blood 227 mg/dL (75-99)
[2020-09-30] MEDS: PANTOPRAZOLE 40 MG TABLET PO SCH (06:35)
[2020-09-30] MEDS: INSULIN ASPART (NovoLOG) 100 UNIT/ML VIAL SQ SCH ×4 (06:35→21:00)
[2020-09-30] MEDS: ALBUTEROL HFA INHALER INHALATION SCH ×4 (08:49→19:57)
[2020-09-30] MEDS: METOPROLOL TARTRATE 50 MG TAB PO SCH (09:09)
[2020-09-30] MEDS: glipiZIDE 5 MG TAB PO SCH ×5 (09:09→21:02)
[2020-09-30] MEDS: FOLIC ACID 1 MG TAB PO SCH (09:09)
[2020-09-30] MEDS: methylPREDNISolone SOD SUCCI 40 MG/ML 1 ML VIAL IV SCH ×3 (09:09→22:13)
[2020-09-30] MEDS: metFORMIN 500 MG TAB PO SCH ×4 (09:09→21:02)
[2020-09-30] MEDS: CYANOCOBALAMIN 1,000 MCG/ML 1 ML VIAL IM SCH (09:10)
[2020-09-30] MEDS: ZINC SULFATE 220 MG CAP PO SCH (09:10)
[2020-09-30] MEDS: APIXABAN 5 MG TAB PO SCH ×2 (09:10→20:59)
[2020-09-30] MEDS: lisinopriL 20 MG TAB PO SCH (09:10)
--- NOTE | 2020-09-30 11:41 | P.PN ---
Subjective Acute hypoxic respiratory failure secondary to COVID-19 pneumonia Patient is a 60-year-old male was admitted to the hospital due to acute COVID-19 pneumonia and had bilateral pneumonia and acute hypoxic respiratory failure. Patient is on submental oxygen. 09/26/2020 Patient is currently lying in the bed awake alert and oriented x3. Requiring BiPAP. Currently on 100% FiO2. Pulmonary is following. Patient is being con tinued on methylprednisolone and anticoagulation with Eliquis. Patient is also being continued on antibiotic in the form of cefepime. Pulmonary and ID is on board. Patient has been afebrile. Laboratory data showed sodium 137, potassium 4.0, BUN 42 and creatinine 1.0 Albumin level is 2.6 and blood sugar is elevated due to steroids. 09/27/2020 Patient is currently on partial nonrebreather. Off BiPAP this morning. No complaints of chest pain. Shortness of breath is improving. Patient is being continued on IV Solu-Medrol and Eliquis anticoagulation. Continued on vitamin supplementation. Patient has been afebrile. Patient was seen by hematology due to anemia and thrombocytopenia. Patient was found to have severe B12 deficiency and was started on IM B12 injections. Monitor H&H. Hemoglobin level is 9.4 today. 09/28/2020 She and is on high-dose steroids because of which patient blood sugars are elevated a patient was started on long-acting insulin at 20 units patient may need more. Patient is receiving 60 every 6 of Solu-Medrol which I'll try to cut it down. Patient is still requiring high amounts of oxygen. Patient is insisting on taking shower. Patient is presently on 60 L of oxygen. Since blood pressure is low amlodipine will be discontinued 09/29/2020 Patient the blood sugars remain elevated patient received the first dose of long-acting insulin last night I'll increase the dose of long-acting insulin from 20 units to 32 units. Continue with sliding scale blood sugar elevation is secondary to systemic steroids and the patient's respiratory status remains fair ly the same without any worsening or improvement. 09/30/2020 Patient is insisting on taking shower patient is presently on airvo. Blood sugars are a bit elevated will increase the dose of Levemir patient continues to be on IV steroids. Patient is presently on June as well and this is being managed by infectious disease Constitutional: Denied any fatigue denied any fever. Cardio vascular: denied any chest pain, palpitations Gastrointestinal denied any nausea vomiting Pulmonary: Denied any shortness of breath cough Neurologic denied any new focal deficits All inpatient medications were reviewed and appropriate changes in these medications as dictated in the interval history and assessment and plan. Objective - Vital Signs Vital signs: Vital Signs Temp 98.3 F 09/30/20 08:00 Pulse 74 09/30/20 08:00 Resp 16 09/30/20 08:00 BP 99/52 09/30/20 08:00 Pulse Ox 95 09/30/20 08:00 Intake & Output 09/29/20 09/30/20 09/30/20 18:59 06:59 18:59 Intake Total 240 120 Balance 240 120 Weight 104.1 kg Intake: Oral 240 120 Other: Voiding Method Urinal Urinal # Voids 0 2 0 # Bowel Movements 0 0 - Exam PHYSICAL EXAMINATION: GENERAL: The patient is alert and oriented x3, not in any acute distress. Well developed, well nourished. HEENT: Pupils are round and equally reacting to light. EOMI. No scleral icterus. No conjunctival pallor. Normocephalic, atraumatic. No pharyngeal erythema. No thyromegaly. CARDIOVASCULAR: S1 and S2 present. No murmurs, rubs, or gallops. PULMONARY: Chest is clear to auscultation, no wheezing or crackles. ABDOMEN: Soft, nontender, nondistended, normoactive bowel sounds. No palpable organomegaly. MUSCULOSKELETAL: No joint swelling or deformity. EXTREMITIES: No cyanosis, clubbing, or pedal edema. NEUROLOGICAL: Gross neurological examination did not reveal any focal deficits. SKIN: No rashes. Note: Because of COVID 19 isolation, some of the history and physical exam findings are indirect and obtained from nursing staff, and other physician examinations to avoid unnecessary contact with the patient. - Labs CBC & Chem 7: 09/29/20 07:54 09/29/20 07:54 Labs: Abnormal Lab Results - Last 24 Hours (Table) 09/29/20 09/29/20 09/29/20 Range/Units 07:54 12:11 17:05 POC Glucose (mg/dL) 291 H 250 H (75-99) mg/dL Procalcitonin 0.11 H (0.02-0.09) ng/mL 09/29/20 09/30/20 Range/Units 20:21 06:17 POC Glucose (mg/dL) 252 H 227 H (75-99) mg/dL Procalcitonin (0.02-0.09) ng/mL Microbiology - Last 24 Hours (Table) 09/24/20 23:07 Blood Culture - Preliminary Blood No Growth after 120 hours 09/23/20 23:19 Blood Culture - Final Blood No Growth after 144 hours Assessment and Plan Plan: Acute bilateral interstitial pneumonia secondary to acute COVID-19 pneumonia. And sepsis secondary to covid 19. Patient is on cefepime and this is being managed by infectious disease. Acute hypoxic respiratory failure requiring BiPAP Fever secondary to COVID-19 infection present on admission no fever now. Elevated troponin level likely due to sepsis. Elevated D-dimer without evidence of pulmonary embolism. Severe B12 deficiency and macrocytic anemia. Thrombocytopenia likely due to viral infection. Diabetes type 2: Elevated uncontrolled secondary to systemic steroids patient was started on long-acting insulin of which is being increased today blood sugars remain uncontrolled. Hypertension Hyperlipidemia Degenerative joint disease Obesity with BMI 36.6 Full code
[2020-09-30] MEDS ORDERED: DIALYSIS (PERIT 1.5%) 2,500 ML 37.5 G/2,500 ML BAG INTRAPERIT SCH (12:00)
[2020-09-30 12:07] LABS: Glucose,Whole Blood 207 mg/dL (75-99)
[2020-09-30] MEDS: CEFEPIME 2 GM in SODIUM CHLORIDE 0.9% 100 ML IVPB SCH ×2 (12:51→20:59)
--- NOTE | 2020-09-30 15:33 | P.PN ---
Subjective Progress Note Date: 09/30/20 Principal diagnosis: Acute covid 19 pneumonia Acute hypoxic respiratory failure Hypertension hypertensive cardiovascular disease History of dyslipidemia Obesity Elevated d-dimer and inflammatory parameters of Covid 19 pneumonia 10/10/2020, patient seen eval examined during the rounds, on high flow oxygen 40% with 15 L, repeat x-ray reviewed, 09/29/2020, patient seen eval examined during the rounds labs reviewed medications reviewed remains on the ferrous lysed high flow oxygen, breathing slightly better, currently on 15 L 65%, chest x-ray performed today remains stab le 09/28/2020, patient seen eval examined during the rounds currently patient sitting upright on the bed getting and was high flow aerosolized oxygen, hemodynamically stable, saturation improved to 96%, we'll continue BiPAP however at nighttime though in during the day with use high flow oxygen to keep saturation over 90% 09/27/2020, patient seen eval examined during the rounds remains on BiPAP 12 and 6 and 100% oxygen, saturation is 90%, chest x-ray reviewed no significant change, patient could not tolerate high flow oxygen desaturated, relatively more stable on BiPAP, discussed with the patient recommended and advise prone positioning as much as possible, 09/26/2020, patient seen eval examined during the rounds still hypoxic short of breath, oxygen saturation is coming down into mid to low 90s on high flow oxygen, patient will require the BiPAP, care plan discussed with the staff nurse will initiate BiPAP with high flow oxygen patient also will benefit from convulsant plasma Patient seen and evaluated examined on third floor, patient has been diagnosed as covert 19 pneumonia and acute hypoxic respiratory failure patient is being seen by infectious disease services has been started on IV REM the liver, also on Decadron, chest x-ray performed yesterday continue show bilateral fluffy and alveolar infiltrate with early ARDS-like appearance, review of the data revealed that patient has significant risk factors of diabetes mellitus hypertension hypertensive cardiovascular disease dyslipidemia chronic anemia patient sees Dr. Gaytan for primary care activities, it seems like symptoms started about a week ago with progressive cough shortness of breath, on arrival he was found to be febrile with a fever of 101 Objective - Vital Signs Vital signs: Vital Signs Temp 97.8 F 09/30/20 12:00 Pulse 75 09/30/20 12:00 Resp 16 09/30/20 13:37 BP 129/73 09/30/20 12:00 Pulse Ox 99 09/30/20 12:00 Intake & Output 09/29/20 09/30/20 09/30/20 18:59 06:59 18:59 Intake Total 240 120 Balance 240 120 Weight 104.1 kg Intake: Oral 240 120 Other: Voiding Method Urinal Urinal # Voids 0 2 0 # Bowel Movements 0 0 - Exam - Constitutional General appearance: average body habitus, disheveled, mild distress - EENT Eyes: PERRLA Ears: bilateral: normal - Neck Neck: normal ROM Carotids: bilateral: upstroke normal Thyroid: bilateral: normal size - Respiratory Respiratory: bilateral: diminished - Cardiovascular Rhythm: regular Heart sounds: normal: S1, S2 - Gastrointestinal General gastrointestinal: hyperactive bowel sounds - Integumentary Integumentary: normal turgor - Neurologic Neurologic: CNII-XII intact - Musculoskeletal Musculoskeletal: gait normal, generalized weakness, strength equal bilaterally - Psychiatric Psychiatric: A&O x's 3, appropriate affect, intact judgment & insight - Labs CBC & Chem 7: 09/29/20 07:54 09/29/20 07:54 Labs: Abnormal Lab Results - Last 24 Hours (Table) 09/29/20 09/29/20 09/30/20 Range/Units 17:05 20:21 06:17 POC Glucose (mg/dL) 250 H 252 H 227 H (75-99) mg/dL 09/30/20 Range/Units 12:06 POC Glucose (mg/dL) 207 H (75-99) mg/dL Microbiology - Last 24 Hours (Table) 09/24/20 23:07 Blood Culture - Preliminary Blood No Growth after 120 hours 09/23/20 23:19 Blood Culture - Final Blood No Growth after 144 hours Assessment and Plan Assessment: Acute covid 19 pneumonia Acute hypoxic respiratory failure Hypertension hypertensive cardiovascular disease History of dyslipidemia Obesity Elevated d-dimer and inflammatory parameters of Covid 19 pneumonia Plan: Continue supplemental oxygen given severity hypoxia, continue BiPAP 09/29 with oxygen at night, high flow aerosolized oxygen during the day and as needed titrated down as tolerated Status post Convalescent plasma IV steroids Status post IV REMdesivir Anticoagulation Deep breathing exercise incentive spirometry Prone positioning Increase activity as tolerated Time with Patient: Greater than 30
[2020-09-30 17:41] LABS: Glucose,Whole Blood 176 mg/dL (75-99)
[2020-09-30 20:19] LABS: Glucose,Whole Blood 160 mg/dL (75-99)
[2020-09-30] MEDS ORDERED: bisacodyL 5 MG TABLET.DR PO PRN (20:34)
[2020-09-30] MEDS: ATORVASTATIN 40 MG TAB PO SCH (20:59)
[2020-09-30] MEDS: INSULIN DETEMIR (LEVEMIR) 100 UNIT/ML SYR SQ SCH (21:00)
[2020-09-30] MEDS: ALPRAZolam 0.25 MG TAB PO PRN (22:13)
--- NOTE | 2020-09-30 23:35 | PN ---
PROGRESS NOTE DATE OF SERVICE: 09/30/2020 REASON FOR FOLLOWUP: Acute COVID-19 pneumonia. INTERVAL HISTORY: The patient is currently afebrile. He is still requiring high-flow oxygen though overall feeling better. Breathing has improved. The patient denies having any chest pain or shortness of breath. Minimal cough. No nausea, no vomiting. No abdominal pain or diarrhea. PHYSICAL EXAMINATION: Blood pressure 132/82 with a pulse of 78, temperature 97.9. He is 95% on 40% high flow oxygen. General description is a middle-aged male lying in bed in no distress. Respiratory system: Unlabored breathing, decreased intensity of breath sounds with no wheeze. Heart S1, S2. Regular rate and rhythm. ABDOMEN: Soft, no tenderness. LABS: Hemoglobin 9.6, white count 6.2, BUN of 44, creatinine 0.92, elevated. CRP is down. DIAGNOSTIC IMPRESSION AND PLAN: Patient with acute COVID-19 infection. This patient has completed his Remdesivir therapy, currently on Eliquis, Solu-Medrol, zinc and cefepime. In view of the elevated procalcitonin, we will try to obtain a sputum to narrow down antibiotics. Blood culture so far negative. Continue supportive care. MMODL / IJN: [id number] /
[2020-10-01] MEDS: SODIUM CHLORIDE 0.9% 1,000 ML IV SCH (01:02)
[2020-10-01] MEDS: ALBUTEROL HFA INHALER INHALATION SCH ×4 (08:49→21:12)
[2020-10-01 09:29] LABS: Glucose,Whole Blood 119 mg/dL (75-99)
[2020-10-01] MEDS: METOPROLOL TARTRATE 50 MG TAB PO SCH (09:30)
[2020-10-01] MEDS: glipiZIDE 5 MG TAB PO SCH ×4 (09:30→21:04)
[2020-10-01] MEDS: ZINC SULFATE 220 MG CAP PO SCH (09:30)
[2020-10-01] MEDS: PANTOPRAZOLE 40 MG TABLET PO SCH (09:30)
[2020-10-01] MEDS: lisinopriL 20 MG TAB PO SCH (09:30)
[2020-10-01] MEDS: APIXABAN 5 MG TAB PO SCH ×2 (09:31→20:31)
[2020-10-01] MEDS: FOLIC ACID 1 MG TAB PO SCH (09:31)
[2020-10-01] MEDS: INSULIN ASPART (NovoLOG) 100 UNIT/ML VIAL SQ SCH ×4 (09:31→20:26)
[2020-10-01] MEDS: metFORMIN 500 MG TAB PO SCH ×4 (09:31→21:04)
[2020-10-01] MEDS: methylPREDNISolone SOD SUCCI 40 MG/ML 1 ML VIAL IV SCH ×3 (09:32→23:38)
[2020-10-01] MEDS: CEFEPIME 2 GM in SODIUM CHLORIDE 0.9% 100 ML IVPB SCH ×2 (09:33→20:31)
[2020-10-01 11:17] LABS: Glucose,Whole Blood 135 mg/dL (75-99)
--- NOTE | 2020-10-01 11:41 | P.PN ---
Subjective Progress Note Date: 10/01/20 Principal diagnosis: Acute covid 19 pneumonia Acute hypoxic respiratory failure Hypertension hypertensive cardiovascular disease History of dyslipidemia Obesity Elevated d-dimer and inflammatory parameters of Covid 19 pneumonia 10/01/2020, patient seen and evaluated examined during the rounds remains on high flow oxygen 40% with 15 L, cough congestion shortness of breath improved, denies any chest pain, overall plan remains to titrated oxygen down as tolerated keeping saturation over 88% and above 09/30/2020, patient seen eval examined during the rounds, on high flow oxygen 40% with 15 L, repeat x-ray reviewed, 09/29/2020, patient seen eval examined during the rounds labs reviewed medications reviewed remains on the ferrous lysed high flow oxygen, breathing slightly better, currently on 15 L 65%, chest x-ray performed today remains stable 09/28/2020, patient seen eval examined during the rounds currently patient sitting upright on the bed getting and was high flow aerosolized oxygen, hemodynamically stable, saturation improved to 96%, we'll continue BiPAP however at nighttime though in during the day with use high flow oxygen to keep saturation over 90% 09/27/2020, patient seen eval examined during the rounds remains on BiPAP 12 and 6 and 100% oxygen, saturation is 90%, chest x-ray reviewed no significant change, patient could not tolerate high flow oxygen desaturated, relatively more stable on BiPAP, discussed with the patient recommended and advise prone positioning as much as possible, 09/26/2020, patient seen eval examined during the rounds still hypoxic short of breath, oxygen saturation is coming down into mid to low 90s on high flow ox ygen, patient will require the BiPAP, care plan discussed with the staff nurse will initiate BiPAP with high flow oxygen patient also will benefit from convulsant plasma Patient seen and evaluated examined on third floor, patient has been diagnosed as covert 19 pneumonia and acute hypoxic respiratory failure patient is being seen by infectious disease services has been started on IV REM the liver, also on Decadron, chest x-ray performed yesterday continue show bilateral fluffy and alveolar infiltrate with early ARDS-like appearance, review of the data revealed that patient has significant risk factors of diabetes mellitus hypertension hypertensive cardiovascular disease dyslipidemia chronic anemia patient sees Dr. Gaytan for primary care activities, it seems like symptoms started about a week ago with progressive cough shortness of breath, on arrival he was found to be febrile with a fever of 101 Objective - Vital Signs Vital signs: Vital Signs Temp 98.2 F 10/01/20 05:00 Pulse 90 10/01/20 05:00 Resp 18 10/01/20 05:00 BP 171/80 10/01/20 05:00 Pulse Ox 95 10/01/20 05:00 Intake & Output 09/30/20 10/01/20 10/01/20 18:59 06:59 18:59 Intake Total 220 600 Balance 220 600 Intake: Intake, IV Titration 100 100 Amount Cefepime 2 gm In Sodium 100 100 Chloride 0.9% 100 ml @ 25 mls/hr IVPB Q12HR [facility] Rx #:[id number] Oral 120 500 Other: Voiding Method Urinal Urinal # Voids 0 3 # Bowel Movements 0 0 - Exam - Constitutional General appearance: average body habitus, disheveled, mild distress - EENT Eyes: PERRLA Ears: bilateral: normal - Neck Neck: normal ROM Carotids: bilateral: upstroke normal Thyroid: bilateral: normal size - Respiratory Respiratory: bilateral: diminished - Cardiovascular Rhythm: regular Heart sounds: normal: S1, S2 - Gastrointestinal General gastrointestinal: hyperactive bowel sounds - Integumentary Integumentary: normal turgor - Neurologic Neurologic: CNII-XII intact - Musculoskeletal Musculoskeletal: gait normal, generalized weakness, strength equal bilaterally - Psychiatric Psychiatric: A&O x's 3, appropriate affect, intact judgment & insight - Labs CBC & Chem 7: 09/29/20 07:54 09/29/20 07:54 Labs: Abnormal Lab Results - Last 24 Hours (Table) 09/30/20 09/30/20 09/30/20 Range/Units 12:06 17:21 20:19 POC Glucose (mg/dL) 207 H 176 H 160 H (75-99) mg/dL 10/01/20 10/01/20 Range/Units 09:27 11:15 POC Glucose (mg/dL) 119 H 135 H (75-99) mg/dL Microbiology - Last 24 Hours (Table) 09/24/20 23:07 Blood Culture - Final Blood No Growth after 144 hours Assessment and Plan Assessment: Acute covid 19 pneumonia Acute hypoxic respiratory failure Hypertension hypertensive cardiovascular disease History of dyslipidemia Obesity Elevated d-dimer and inflammatory parameters of Covid 19 pneumonia Plan: Continue supplemental oxygen given severity hypoxia, continue BiPAP 09/29 with oxygen at night, high flow aerosolized oxygen during the day and as needed titrated down as tolerated Status post Convalescent plasma IV steroids Status post IV REMdesivir Anticoagulation Deep breathing exercise incentive spirometry Prone positioning Increase activity as tolerated Time with Patient: Greater than 30
--- NOTE | 2020-10-01 14:26 | P.PN ---
Subjective Progress Note Date: 10/01/20 HISTORY OF PRESENT ILLNESS Patient is a 60-year-old male presenting to the ER at [facility] yesterday afternoon for evaluation of weakness that has been going on for 3 days before presentation to the hospital patient also mentioned that he fell off his toilet the right side today no loss of consciousness of injury patient has been complaining of generalized weakness no energy patient was noticed to be febrile on presentation to the hospital with a temperature of 103 degree for right patient did not recall any fever at home he did have mild tachycardia however the patient has been able to maintain his sats currently 98 to 95% on room air patient did have a leukopenia as well as lymphopenia he did have elevated D-dimer of 4 kidney function was normal ferritin elevated 1824 LDH was 2486 and a CRP of 79 blood cultures were -0.17 patient Covid test came back positive influenza testing was negative patient did have a chest x-ray chronic changes without acute infiltrate identified he did have a CT angiogram of the chest no evidence of acute pulmonary embolism with diffuse groundglass opacity bilateral considered COVID-19 infection, infectious was consulted for further management, patient chart was reviewed and he was started on Solu-Medrol Lovenox and zinc sulfate patient was not hypoxic and did not meet criteria for remdesivir initiation, at the time of elevation earlier this afternoon the patient has been feeling better with resolution of his fever 10/01: Patient is seen today on the [facility] floor in follow-up. Patient denies having any fever or chills. No cough or shortness of breath. He does not have any abdominal pain, nausea, vomiting or diarrhea. He states in general he is feeling much better. Patient has been afebrile, pulse ox is 100% on high flow nasal cannula with FiO2 of 45, heart rate 69, blood pressure 128/79. PHYSICAL EXAMINATION Gen: This is a 60-year-old male. He is resting in bed and appears to be comfortable. No acute distress noted. No respiratory distress. VS: Afebrile, heart rate 92, blood pressure 134/60, pulse ox 94% on room air. HEENT: Head is atraumatic, normocephalic. Pupils equal, round. Sclerae is anict priyanka. NECK: Supple. No JVD. No lymphadenopathy. No thyromegaly. LUNGS: Clear to auscultation. No wheezes or rhonchi. No intercostal retractions. HEART: Regular rate and rhythm. No murmur. ABDOMEN: Soft. Bowel sounds are present. No masses. No tenderness. EXTREMITIES: No pedal edema. No calf tenderness. NEUROLOGICAL: Patient is awake, alert and oriented x3. Cranial nerves 2 through 12 are grossly intact. ASSESSMENT Covid 19 infection Lymphopenia Elevated inflammatory markers PLAN Completed Remdesivir Continue Solu-Medrol, Lovenox, zinc Continue cefepime Continue current treatment plan The above dictated assessment and findings were discussed with Dr. Ford. The impression and plan of care have been directed as dictated. Annmarie Poe nurse practitioner acting as scribe for Dr. Ford. Objective - Vital Signs Vital signs: Vital Signs Temp 98.4 F 10/01/20 11:52 Pulse 69 10/01/20 11:52 Resp 18 10/01/20 11:52 BP 128/79 10/01/20 11:52 Pulse Ox 100 10/01/20 12:29 Intake & Output 09/30/20 10/01/20 10/01/20 18:59 06:59 18:59 Intake Total 220 600 Balance 220 600 Intake: Intake, IV Titration 100 100 Amount Cefepime 2 gm In Sodium 100 100 Chloride 0.9% 100 ml @ 25 mls/hr IVPB Q12HR [facility] Rx #:[id number] Oral 120 500 Other: Voiding Method Urinal Urinal # Voids 0 3 # Bowel Movements 0 0 - Labs CBC & Chem 7: 09/29/20 07:54 09/29/20 07:54 Labs: Abnormal Lab Results - Last 24 Hours (Table) 09/30/20 09/30/20 10/01/20 Range/Units 17:21 20:19 09:27 POC Glucose (mg/dL) 176 H 160 H 119 H (75-99) mg/dL 10/01/20 Range/Units 11:15 POC Glucose (mg/dL) 135 H (75-99) mg/dL Microbiology - Last 24 Hours (Table) 09/24/20 23:07 Blood Culture - Final Blood No Growth after 144 hours
--- NOTE | 2020-10-01 15:32 | P.PN ---
Subjective Progress Note Date: 10/01/20 Acute hypoxic respiratory failure secondary to COVID-19 pneumonia Patient is a 60-year-old male was admitted to the hospital due to acute COVID-19 pneumonia and had bilateral pneumonia and acute hypoxic respiratory failure. Patient is on submental oxygen. 09/26/2020 Patient is currently lying in the bed awake alert and oriented x3. Requiring BiPAP. Currently on 100% FiO2. Pulmonary is following. Patient is being continued on methylprednisolone and anticoagulation with Eliquis. Patient is also being continued on antibiotic in the form of cefepime. Pulmonary and ID is on board. Patient has been afebrile. Laboratory data showed sodium 137, potassium 4.0, BUN 42 and creatinine 1.0 Albumin level is 2.6 and blood sugar is elevated due to steroids. 09/27/2020 Patient is currently on partial nonrebreather. Off BiPAP this morning. No complaints of chest pain. Shortness of breath is improving. Patient is being continued on IV Solu-Medrol and Eliquis anticoagulation. Continued on vitamin supplementation. Patient has been afebrile. Patient was seen by hematology due to anemia and thrombocytopenia. Patient was found to have severe B12 deficiency and was started on IM B12 injections. Monitor H&H. Hemoglobin level is 9.4 today. 09/28/2020 She and is on high-dose steroids because of which patient blood sugars are elevated a patient was started on long-acting insulin at 20 units patient may need more. Patient is receiving 60 every 6 of Solu-Medrol which I'll try to cut it down. Patient is still requiring high amounts of oxygen. Patient is insisting on taking shower. Patient is presently on 60 L of oxygen. Since blood pressure is low amlodipine will be discontinued 09/29/2020 Patient the blood sugars remain elevated patient received the first dose of long-acting insulin last night I'll increase the dose of long-acting insulin from 20 units to 32 units. Continue with sliding scale blood sugar elevation is secondary to systemic steroids and the patient's respiratory status remains fairly the same without any worsening or improvement. 09/30/2020 Patient is insisting on taking shower patient is presently on airvo. Blood sugars are a bit elevated will increase the dose of Levemir patient continues to be on IV steroids. Patient is presently on June as well and this is being managed by infectious disease 10/01/2020 Patient is seen in follow-up and has been moved to a medical surgical floor and currently remains on Airvo 40/45 and is 100%. Discussed with nursing staff about weaning FiO2 as tolerated. Infectious disease and pulmonary are following. Patient remains on cefepime along with IV steroids, Lovenox, vitamin C and D, and zinc supplements. Patient continues to be weak and per nursing staff is incontinent. Have PT/OT evaluate the patient. Patient continues to be weak, patient may require ECF for continued rehab. Repeat labs for the morning have been ordered. Constitutional: Denied any fatigue denied any fever. Cardio vascular: denied any chest pain, palpitations Gastrointestinal denied any nausea vomiting Pulmonary: Continues with shortness of breath, cough Neurologic denied any new focal deficits All inpatient medications were reviewed and appropriate changes in these medications as dictated in the interval history and assessment and plan. Objective - Vital Signs Vital signs: Vital Signs Temp 98.4 F 10/01/20 11:52 Pulse 69 10/01/20 11:52 Resp 18 10/01/20 11:52 BP 128/79 10/01/20 11:52 Pulse Ox 100 10/01/20 11:52 Intake & Output 09/30/20 10/01/20 10/01/20 18:59 06:59 18:59 Intake Total 220 600 Balance 220 600 Intake: Intake, IV Titration 100 100 Amount Cefepime 2 gm In Sodium 100 100 Chloride 0.9% 100 ml @ 25 mls/hr IVPB Q12HR [facility] Rx #:[id number] Oral 120 500 Other: Voiding Method Urinal Urinal # Voids 0 3 # Bowel Movements 0 0 - Exam GENERAL: The patient is alert and oriented x3, not in any acute distress. Well developed, well nourished. HEENT: Pupils are round and equally reacting to light. EOMI. No scleral icterus. No conjunctival pallor. Normocephalic, atraumatic. No pharyngeal erythema. No thyromegaly. CARDIOVASCULAR: S1 and S2 present. No murmurs, rubs, or gallops. PULMONARY: Chest is clear to auscultation, no wheezing or crackles. ABDOMEN: Soft, nontender, nondistended, normoactive bowel sounds. No palpable organomegaly. MUSCULOSKELETAL: No joint swelling or deformity. EXTREMITIES: No cyanosis, clubbing, or pedal edema. NEUROLOGICAL: Gross neurological examination did not reveal any focal deficits. SKIN: No rashes. Note: Because of COVID 19 isolation, some of the history and physical exam findings are indirect and obtained from nursing staff, and other physician examinations to avoid unnecessary contact with the patient. - Labs CBC & Chem 7: 09/29/20 07:54 09/29/20 07:54 Labs: Abnormal Lab Results - Last 24 Hours (Table) 09/30/20 09/30/20 10/01/20 Range/Units 17:21 20:19 09:27 POC Glucose (mg/dL) 176 H 160 H 119 H (75-99) mg/dL 10/01/20 Range/Units 11:15 POC Glucose (mg/dL) 135 H (75-99) mg/dL Microbiology - Last 24 Hours (Table) 09/24/20 23:07 Blood Culture - Final Blood No Growth after 144 hours Assessment and Plan Assessment: Acute bilateral interstitial pneumonia secondary to acute COVID-19 pneumonia. And sepsis secondary to covid 19. Patient is on cefepime and this is being managed by infectious disease. Acute hypoxic respiratory failure requiring BiPAP Fever secondary to COVID-19 infection present on admission no fever now. Elevated troponin level likely due to sepsis. Elevated D-dimer without evidence of pulmonary embolism. Severe B12 deficiency and macrocytic anemia. Thrombocytopenia likely due to viral infection. Diabetes type 2: Elevated uncontrolled secondary to systemic steroids patient was started on long-acting insulin of which is being increased today blood sugars remain uncontrolled. Hypertension Hyperlipidemia Degenerative joint disease Obesity with BMI 36.6 Full code Plan: Continue with current medications. Continue to wean FiO2 as tolerated. PT/OT to reevaluate the patient as patient continues to be weak and may require ECF for continued rehab once stabilized and discharged. Infectious disease and pulmonary following. Will repeat a.m. labs and continue to monitor vital signs and labs closely. Will continue to monitor blood sugars before meals at bedtime and continue with sliding scale along with long-acting and oral antidiabetic medications. Discussed with the patient about increasing activity as tolerated. Further recommendations to follow.
[2020-10-01 17:14] LABS: Glucose,Whole Blood 70 mg/dL (75-99)
[2020-10-01 20:26] LABS: Glucose,Whole Blood 69 mg/dL (75-99)
[2020-10-01] MEDS: ATORVASTATIN 40 MG TAB PO SCH (20:31)
[2020-10-01 20:58] LABS: Glucose,Whole Blood 105 mg/dL (75-99)
[2020-10-01] MEDS: INSULIN DETEMIR (LEVEMIR) 100 UNIT/ML SYR SQ SCH (21:00)
[2020-10-01] MEDS: ALPRAZolam 0.25 MG TAB PO PRN (21:04)
[2020-10-02 05:38] LABS: Glucose,Whole Blood 153 mg/dL (75-99)
[2020-10-02 07:08] LABS: Glucose,Whole Blood 138 mg/dL (75-99)
[2020-10-02 07:25] LABS: Anisocytosis Moderate; Basophils % (A) 0 %; Eosinophils % (A) 0 %; HCT 29.3 % (39.0-53.0); HGB 9.5 gm/dL (13.0-17.5); Hypochromasia Slight; Lymphocytes # (A) 0.3 k/uL (1.0-4.8); Lymphocytes % (A) 2 %; MCH 36.6 pg (25.0-35.0); MCHC 32.3 g/dL (31.0-37.0); MCV 113.3 fL (80.0-100.0); Macrocytosis Marked; Mean Platelet Volume 8.1; Monocytes # (A) 0.3 k/uL (0-1.0); Monocytes % (A) 2 %; Neutrophils # (A) 15.6 k/uL (1.3-7.7); Neutrophils % (A) 95 %; Platelet Count 511 k/uL (150-450); Poikilocytosis Slight; RBC 2.58 m/uL (4.30-5.90); RDW 20.9 % (11.5-15.5); WBC 16.4 k/uL (3.8-10.6)
[2020-10-02] MEDS: ALBUTEROL HFA INHALER INHALATION SCH ×4 (08:05→20:06)
[2020-10-02] MEDS: methylPREDNISolone SOD SUCCI 40 MG/ML 1 ML VIAL IV SCH ×2 (08:29→15:58)
[2020-10-02] MEDS: METOPROLOL TARTRATE 50 MG TAB PO SCH (08:29)
[2020-10-02] MEDS: INSULIN ASPART (NovoLOG) 100 UNIT/ML VIAL SQ SCH ×3 (08:29→18:06)
[2020-10-02] MEDS: lisinopriL 20 MG TAB PO SCH (08:30)
[2020-10-02] MEDS: APIXABAN 5 MG TAB PO SCH (08:30)
[2020-10-02] MEDS: metFORMIN 500 MG TAB PO SCH ×3 (08:30→18:06)
[2020-10-02] MEDS: PANTOPRAZOLE 40 MG TABLET PO SCH (08:30)
[2020-10-02] MEDS: FOLIC ACID 1 MG TAB PO SCH (08:30)
[2020-10-02] MEDS: glipiZIDE 5 MG TAB PO SCH ×3 (08:30→18:06)
[2020-10-02] MEDS: ZINC SULFATE 220 MG CAP PO SCH (08:30)
[2020-10-02 08:59] LABS: Polychromasia Present
[2020-10-02 09:38] LABS: African American GFR (CKD) 126.7 (60.0-200.0); Anion Gap 6.3 mmol/L (4.00-12.00); Calcium 8.6 mg/dL (8.7-10.3); Carbon Dioxide 27.7 mmol/L (21.6-31.8); Non-African American GFR(CKD) 109.3 (60.0-200.0); Potassium 5.2 mmol/L (3.5-5.5)
[2020-10-02 10:42] LABS: Glucose,Whole Blood 119 mg/dL (75-99)
--- NOTE | 2020-10-02 13:27 | P.DS ---
Providers Date of admission: 09/20/20 14:32 Expected date of discharge: 10/02/20 Attending physician: Jennifer Loredo Consults: 09/20/20 14:26 Consult Physician Routine Consulting Provider: Mario Ford Consult Reason/Comments: covid 19 Do you want consulting provider notified?: Yes 09/20/20 14:27 Consult Physician Routine Consulting Provider: Aakash Maya Consult Reason/Comments: Elevated troponin Do you want consulting provider notified?: Yes 09/21/20 11:33 Consult Physician Routine Consulting Provider: Miller De La Cruz Consult Reason/Comments: anemia Do you want consulting provider notified?: Yes 09/22/20 20:05 Consult Physician Stat Consulting Provider: Yevgeniy Stock Consult Reason/Comments: CODE STROKE Do you want consulting provider notified?: Yes 09/23/20 04:48 Consult Physician Routine Consulting Provider: Aakash Maya Consult Reason/Comments: New onset Afib Do you want consulting provider notified?: Already Contacted 09/25/20 14:43 Consult Physician Routine Consulting Provider: Enrrique Quiroz Consult Reason/Comments: covid hypoxia Do you want consulting provider notified?: Yes Primary care physician: Yrn Grider [facility] Course: Final diagnosis Acute bilateral interstitial pneumonia secondary to acute COVID-19 pneumonia. And sepsis secondary to covid 19. Acute hypoxic respiratory failure requiring BiPAP Fever secondary to COVID-19 infection present on admission, Elevated troponin level likely due to sepsis. Elevated D-dimer without evidence of pulmonary embolism. Severe B12 deficiency and macrocytic anemia. Thrombocytopenia likely due to viral infection. Diabetes type 2: Elevated uncontrolled secondary to systemic steroids Hypertension Hyperlipidemia Degenerative joint disease Obesity with BMI 36.6 Full code Discharge disposition Patient is being discharged in a stable condition with guarded prognosis to [facility] for continued PT/OT therapy. Patient will follow-up with Dr. Grider in the outpatient setting upon discharge. Patient also need to follow-up with cardiology in the outpatient setting as well. Patient will continue with a short course of prednisone taper to complete the course. Patient will also continue on a zinc, vitamin C and D in the outpatient setting. Total time taken is greater than 35 minutes. History of present illness This is an 60-year-old male who was recently admitted with acute Covid pneumonia and acute hypoxic respiratory failure and was being closely monitored. Multiple medical Consultations were following. Patient was maintained under close monitoring for quite some time. During hospitalization patient did receive remdesivir course, Lovenox, IV steroids, vitamin C and D, and zinc supplements. Patient continued to have poor respiratory status and was maintained on Airvo. [facility] and airvo was titrated off and patient is currently 94% on 4-5 L of oxygen via nasal cannula. Patient is much more awake and alert and responding appropriately to commands. Patient continues to be quite weak and has been working with physical therapy and unable to ambulate and will need ECF for continued PT/OT therapy for strength and mobility. Patient states his breathing feels much better although he continues to be weak and is willing to go to rehab today. Patient will continue on a prednisone taper to complete the course. Patient will also need to continue monitoring blood sugars before meals at bedtime Currently no reports of chest pain, shortness of breath, or palpitations. Patient is afebrile. No reports of nausea or vomiting and patient is tolerating diet. Patient will be discharged to [facility] on the [facility] today. On exam vital signs are stable. Temp is 97.9F, pulse is 57, respirations are 17, blood pressure is 126/68, oxygen saturation is 94% on 4 L via nasal cannula. Cardio S1, S2 are muffled. Respiratory shows diminished breath sounds at the bases with some rhonchi noted. Abdomen is soft and nontender. Nervous system shows diffuse weakness. Please refer to medication reconciliation sheet for a list of medications. Patient Condition at Discharge: Fair Plan - Discharge Summary New Discharge Prescriptions: New Apixaban [Eliquis] 5 mg PO BID #60 tab bisacodyL [Dulcolax] 5 mg PO DAILY PRN tablet. PRN Reason: Constipation Folic Acid 1 mg PO DAILY tab Atorvastatin [Lipitor] 40 mg PO HS tab INSULIN ASPART (NovoLOG) [NovoLOG (formulary)] 0 unit SQ ACHS vial Zinc Sulfate [Orazinc] 220 mg PO DAILY cap predniSONE 10 mg PO DIRECTED #30 tab Pantoprazole [Protonix] 40 mg PO AC-BRKFST tablet. Acetaminophen Tab [Tylenol] 650 mg PO Q4HR PRN tab PRN Reason: Mild Pain Or Fever > 100.5 Albuterol Inhaler [Ventolin Hfa Inhaler] 2 puff INHALATION RT-QID puff Albuterol Inhaler [Ventolin Hfa Inhaler] 1 puff INHALATION RT-QID PRN puff PRN Reason: Shortness Of Breath Or Wheezing ALPRAZolam [Xanax] 0.25 mg PO TID PRN #9 tab PRN Reason: Anxiety Continue glyBURIDE/METFORMIN HCL [Glucovance 2.5-500 mg] 1 tab PO QID Metoprolol Tartrate [Lopressor] 50 mg PO DAILY Benazepril HCl [Lotensin] 40 mg PO DAILY amLODIPine [Norvasc] 10 mg PO DAILY Discharge Medication List Benazepril HCl [Lotensin] 40 mg PO DAILY 09/20/20 [History] Metoprolol Tartrate [Lopressor] 50 mg PO DAILY 09/20/20 [History] amLODIPine [Norvasc] 10 mg PO DAILY 09/20/20 [History] glyBURIDE/METFORMIN HCL [Glucovance 2.5-500 mg] 1 tab PO QID 09/20/20 [History] Apixaban [Eliquis] 5 mg PO BID #60 tab 09/23/20 [Rx] ALPRAZolam [Xanax] 0.25 mg PO TID PRN #9 tab 10/02/20 [Rx] Acetaminophen Tab [Tylenol] 650 mg PO Q4HR PRN tab 10/02/20 [Rx] Albuterol Inhaler [Ventolin Hfa Inhaler] 1 puff INHALATION RT-QID PRN puff 10/02/20 [Rx] Albuterol Inhaler [Ventolin Hfa Inhaler] 2 puff INHALATION RT-QID puff 10/02/20 [Rx] Atorvastatin [Lipitor] 40 mg PO HS tab 10/02/20 [Rx] Folic Acid 1 mg PO DAILY tab 10/02/20 [Rx] INSULIN ASPART (NovoLOG) [NovoLOG (formulary)] 0 unit SQ ACHS vial 10/02/20 [Rx] Pantoprazole [Protonix] 40 mg PO AC-BRKFST tablet. 10/02/20 [Rx] Zinc Sulfate [Orazinc] 220 mg PO DAILY cap 10/02/20 [Rx] bisacodyL [Dulcolax] 5 mg PO DAILY PRN tablet. 10/02/20 [Rx] predniSONE 10 mg PO DIRECTED #30 tab 10/02/20 [Rx] Follow up Appointment(s)/Referral(s): Yrn Grider MD [Primary Care Provider] - 1-2 days Isabella Murphy MD [STAFF PHYSICIAN] - 2 Weeks Activity/Diet/Wound Care/Special Instructions: Patient is going to ECF for continued PT/OT therapy Activity as tolerated Continue consistent carb diet Continue to monitor blood sugars before meals at bedtime and treat accordingly with sliding scale Continue with PT/OT therapy Continue prednisone taper until finished Discharge Disposition: TRANSFER TO SNF/ECF
--- NOTE | 2020-10-02 15:08 | P.PN ---
Subjective Progress Note Date: 10/02/20 HISTORY OF PRESENT ILLNESS Patient is a 60-year-old male presenting to the ER at [facility] yesterday afternoon for evaluation of weakness that has been going on for 3 days before presentation to the hospital patient also mentioned that he fell off his toilet the right side today no loss of consciousness of injury patient has been complaining of generalized weakness no energy patient was noticed to be febrile on presentation to the hospital with a temperature of 103 degree for right patient did not recall any fever at home he did have mild tachycardia however the patient has been able to maintain his sats currently 98 to 95% on room air patient did have a leukopenia as well as lymphopenia he did have elevated D-dimer of 4 kidney function was normal ferritin elevated 1824 LDH was 2486 and a CRP of 79 blood cultures were -0.17 patient Covid test came back positive influenza testing was negative patient did have a chest x-ray chronic changes without acute infiltrate identified he did have a CT angiogram of the chest no evidence of acute pulmonary embolism with diffuse groundglass opacity bilateral considered COVID-19 infection, infectious was consulted for further management, patient chart was reviewed and he was started on Solu-Medrol Lovenox and zinc sulfate patient was not hypoxic and did not meet criteria for remdesivir initiation, at the time of elevation earlier this afternoon the patient has been feeling better with resolution of his fever 10/01: Patient is seen today on the [facility] floor in follow-up. Patient denies having any fever or chills. No cough or shortness of breath. He does not have any abdominal pain, nausea, vomiting or diarrhea. He states in general he is feeling much better. Patient has been afebrile, pulse ox is 100% on high flow nasal cannula with FiO2 of 45, heart rate 69, blood pressure 128/79. 10/02: Patient denies any shortness of breath or significant cough. He is excited to go home today. He is currently on pulse oximeter percent on 3 L nasal cannula. Patient is being weaned in preparation for discharge today. He has been afebrile. Repeat lab work reveals WBC 16.4, hemoglobin 9.5, platelet count 511, lymphocytes 0.3. D-dimer 6.02. PHYSICAL EXAMINATION Gen: This is a 60-year-old male. He is resting in bed and appears to be comfortable. No acute distress noted. No respiratory distress. HEENT: Head is atraumatic, normocephalic. Pupils equal, round. Sclerae is anicteric. NECK: Supple. No JVD. No lymphadenopathy. No thyromegaly. LUNGS: Clear to auscultation. No wheezes or rhonchi. No intercostal retractions. HEART: Regular rate and rhythm. No murmur. ABDOMEN: Soft. Bowel sounds are present. No masses. No tenderness. EXTREMITIES: No pedal edema. No calf tenderness. NEUROLOGICAL: Patient is awake, alert and oriented x3. Cranial nerves 2 through 12 are grossly intact. ASSESSMENT Covid 19 infection Lymphopenia Elevated inflammatory markers PLAN Completed Remdesivir Patient is cleared for discharge home infectious disease Patient completed course of dexamethasone The above dictated assessment and findings were discussed with Dr. Ford. The impression and plan of care have been directed as dictated. Annmarie Poe nurse practitioner acting as scribe for Dr. Ford. Objective - Vital Signs Vital signs: Vital Signs Temp 97.4 F L 10/02/20 10:39 Pulse 72 10/02/20 10:39 Resp 19 10/02/20 10:39 BP 166/85 10/02/20 10:39 Pulse Ox 98 10/02/20 10:39 Intake & Output 10/01/20 10/02/20 10/02/20 18:59 06:59 18:59 Intake Total 720 240 Balance 720 240 Intake: Oral 720 240 Other: Voiding Method Urinal Urinal Urinal # Voids 4 1 # Bowel Movements 0 - Labs CBC & Chem 7: 10/02/20 06:15 10/02/20 06:15 Labs: Abnormal Lab Results - Last 24 Hours (Table) 10/01/20 10/01/20 10/01/20 Range/Units 17:13 20:25 20:56 WBC (3.8-10.6) k/uL RBC (4.30-5.90) m/uL Hgb (13.0-17.5) gm/dL Hct (39.0-53.0) % MCV (80.0-100.0) fL MCH (25.0-35.0) pg RDW (11.5-15.5) % Plt Count (150-450) k/uL Neutrophils # (1.3-7.7) k/uL Lymphocytes # (1.0-4.8) k/uL Macrocytosis D-Dimer (<0.60) mg/L FEU BUN (9.0-27.0) mg/dL BUN/Creatinine Ratio (12.00-20.00) Ratio Glucose (70-110) mg/dL POC Glucose (mg/dL) 70 L 69 L 105 H (75-99) mg/dL Calcium (8.7-10.3) mg/dL 10/02/20 10/02/20 10/02/20 Range/Units 05:37 06:15 06:15 WBC 16.4 H (3.8-10.6) k/uL RBC 2.58 L (4.30-5.90) m/uL Hgb 9.5 L (13.0-17.5) gm/dL Hct 29.3 L (39.0-53.0) % MCV 113.3 H (80.0-100.0) fL MCH 36.6 H (25.0-35.0) pg RDW 20.9 H (11.5-15.5) % Plt Count 511 H (150-450) k/uL Neutrophils # 15.6 H (1.3-7.7) k/uL Lymphocytes # 0.3 L (1.0-4.8) k/uL Macrocytosis Marked A D-Dimer 6.02 H (<0.60) mg/L FEU BUN (9.0-27.0) mg/dL BUN/Creatinine Ratio (12.00-20.00) Ratio Glucose (70-110) mg/dL POC Glucose (mg/dL) 153 H (75-99) mg/dL Calcium (8.7-10.3) mg/dL 10/02/20 10/02/20 10/02/20 Range/Units 06:15 07:07 10:40 WBC (3.8-10.6) k/uL RBC (4.30-5.90) m/uL Hgb (13.0-17.5) gm/dL Hct (39.0-53.0) % MCV (80.0-100.0) fL MCH (25.0-35.0) pg RDW (11.5-15.5) % Plt Count (150-450) k/uL Neutrophils # (1.3-7.7) k/uL Lymphocytes # (1.0-4.8) k/uL Macrocytosis D-Dimer (<0.60) mg/L FEU BUN 30.0 H (9.0-27.0) mg/dL BUN/Creatinine Ratio 50.00 H (12.00-20.00) Ratio Glucose 132 H (70-110) mg/dL POC Glucose (mg/dL) 138 H 119 H (75-99) mg/dL Calcium 8.6 L (8.7-10.3) mg/dL
--- NOTE | 2020-10-02 16:03 | P.PN ---
Subjective Progress Note Date: 10/02/20 Principal diagnosis: Acute covid 19 pneumonia Acute hypoxic respiratory failure Hypertension hypertensive cardiovascular disease History of dyslipidemia Obesity Elevated d-dimer and inflammatory parameters of Covid 19 pneumonia 10/02/2020, patient seen eval examined during the rounds labs reviewed medications reviewed oxygen has been down to 3 L now breathing comfortably s aturation is mid to low 90s, patient is very weak is being considered for placement ECF, 10/01/2020, patient seen and evaluated examined during the rounds remains on high flow oxygen 40% with 15 L, cough congestion shortness of breath improved, denies any chest pain, overall plan remains to titrated oxygen down as tolerated keeping saturation over 88% and above 09/30/2020, patient seen eval examined during the rounds, on high flow oxygen 40% with 15 L, repeat x-ray reviewed, 09/29/2020, patient seen eval examined during the rounds labs reviewed medications reviewed remains on the ferrous lysed high flow oxygen, breathing slightly better, currently on 15 L 65%, chest x-ray performed today remains stable 09/28/2020, patient seen eval examined during the rounds currently patient sitting upright on the bed getting and was high flow aerosolized oxygen, hemodynamically stable, saturation improved to 96%, we'll continue BiPAP however at nighttime though in during the day with use high flow oxygen to keep saturation over 90% 09/27/2020, patient seen eval examined during the rounds remains on BiPAP 12 and 6 and 100% oxygen, saturation is 90%, chest x-ray reviewed no significant change, patient could not tolerate high flow oxygen desaturated, relatively more stable on BiPAP, discussed with the patient recommended and advise prone positioning as much as possible, 09/26/2020, patient seen eval examined during the rounds still hypoxic short of breath, oxygen saturation is coming down into mid to low 90s on high flow oxygen, patient will require the BiPAP, care plan discussed with the staff nurse will initiate BiPAP with high flow oxygen patient also will benefit from convulsant plasma Patient seen and evaluated examined on third floor, patient has been diagnosed as covert 19 pneumonia and acute hypoxic respiratory failure patient is being seen by infectious disease services has been started on IV REM the liver, also on Decadron, chest x-ray performed yesterday continue show bilateral fluffy and alveolar infiltrate with early ARDS-like appearance, review of the data revealed that patient has significant risk factors of diabetes mellitus hypertension hypertensive cardiovascular disease dyslipidemia chronic anemia patient sees Dr. Gaytan for primary care activities, it seems like symptoms started about a week ago with progressive cough shortness of breath, on arrival he was found to be febrile with a fever of 101 Objective - Vital Signs Vital signs: Vital Signs Temp 97.4 F L 10/02/20 10:39 Pulse 72 10/02/20 10:39 Resp 19 10/02/20 10:39 BP 166/85 10/02/20 10:39 Pulse Ox 98 10/02/20 10:39 Intake & Output 10/01/20 10/02/20 10/02/20 18:59 06:59 18:59 Intake Total 720 1320 Balance 720 1320 Intake: Oral 720 1320 Other: Voiding Method Urinal Urinal Urinal # Voids 4 1 # Bowel Movements 0 - Exam - Constitutional General appearance: average body habitus, disheveled, mild distress - EENT Eyes: PERRLA Ears: bilateral: normal - Neck Neck: normal ROM Carotids: bilateral: upstroke normal Thyroid: bilateral: normal size - Respiratory Respiratory: bilateral: diminished - Cardiovascular Rhythm: regular Heart sounds: normal: S1, S2 - Gastrointestinal General gastrointestinal: hyperactive bowel sounds - Integumentary Integumentary: normal turgor - Neurologic Neurologic: CNII-XII intact - Musculoskeletal Musculoskeletal: gait normal, generalized weakness, strength equal bilaterally - Psychiatric Psychiatric: A&O x's 3, appropriate affect, intact judgment & insight - Labs CBC & Chem 7: 10/02/20 06:15 10/02/20 06:15 Labs: Abnormal Lab Results - Last 24 Hours (Table) 10/01/20 10/01/20 10/01/20 Range/Units 17:13 20:25 20:56 WBC (3.8-10.6) k/uL RBC (4.30-5.90) m/uL Hgb (13.0-17.5) gm/dL Hct (39.0-53.0) % MCV (80.0-100.0) fL MCH (25.0-35.0) pg RDW (11.5-15.5) % Plt Count (150-450) k/uL Neutrophils # (1.3-7.7) k/uL Lymphocytes # (1.0-4.8) k/uL Macrocytosis D-Dimer (<0.60) mg/L FEU BUN (9.0-27.0) mg/dL BUN/Creatinine Ratio (12.00-20.00) Ratio Glucose (70-110) mg/dL POC Glucose (mg/dL) 70 L 69 L 105 H (75-99) mg/dL Calcium (8.7-10.3) mg/dL 10/02/20 10/02/20 10/02/20 Range/Units 05:37 06:15 06:15 WBC 16.4 H (3.8-10.6) k/uL RBC 2.58 L (4.30-5.90) m/uL Hgb 9.5 L (13.0-17.5) gm/dL Hct 29.3 L (39.0-53.0) % MCV 113.3 H (80.0-100.0) fL MCH 36.6 H (25.0-35.0) pg RDW 20.9 H (11.5-15.5) % Plt Count 511 H (150-450) k/uL Neutrophils # 15.6 H (1.3-7.7) k/uL Lymphocytes # 0.3 L (1.0-4.8) k/uL Macrocytosis Marked A D-Dimer 6.02 H (<0.60) mg/L FEU BUN (9.0-27.0) mg/dL BUN/Creatinine Ratio (12.00-20.00) Ratio Glucose (70-110) mg/dL POC Glucose (mg/dL) 153 H (75-99) mg/dL Calcium (8.7-10.3) mg/dL 10/02/20 10/02/20 10/02/20 Range/Units 06:15 07:07 10:40 WBC (3.8-10.6) k/uL RBC (4.30-5.90) m/uL Hgb (13.0-17.5) gm/dL Hct (39.0-53.0) % MCV (80.0-100.0) fL MCH (25.0-35.0) pg RDW (11.5-15.5) % Plt Count (150-450) k/uL Neutrophils # (1.3-7.7) k/uL Lymphocytes # (1.0-4.8) k/uL Macrocytosis D-Dimer (<0.60) mg/L FEU BUN 30.0 H (9.0-27.0) mg/dL BUN/Creatinine Ratio 50.00 H (12.00-20.00) Ratio Glucose 132 H (70-110) mg/dL POC Glucose (mg/dL) 138 H 119 H (75-99) mg/dL Calcium 8.6 L (8.7-10.3) mg/dL Assessment and Plan Assessment: Acute covid 19 pneumonia Acute hypoxic respiratory failure Hypertension hypertensive cardiovascular disease History of dyslipidemia Generalized weakness Obesity Elevated d-dimer and inflammatory parameters of Covid 19 pneumonia Plan: Continue supplemental oxygen given severity hypoxia, and titrated oxygen around down as tolerated Status post Convalescent plasma Oral steroids Status post IV REMdesivir Anticoagulation Deep breathing exercise incentive spirometry Prone positioning Increase activity as tolerated Agree with placement ECF Time with Patient: Greater than 30
[2020-10-02 16:53] VITALS: BP 153/85; PULSE 73; RESP 18; TEMP 98.2
[2020-10-02 17:11] LABS: Glucose,Whole Blood 137 mg/dL (75-99)
[2020-10-02] MEDS ORDERED: CALCIUM CARBONATE 500 MG CHEWABLE PO PRN (18:17)
== END 2020-10-02 20:55 | DRG 871 ==
LOC: EC 11:31 → 4SSUR 14:32 → 3SCARD 16:40 → 6NMEDSUR 09-30 22:41
PROVIDERS: ADMIT Hospitalist; ATTEND Hospitalist
PROC: 30233N1 Transfusion of Nonautologous Red Blood Cells into Peripheral Vein, Percutaneous Approach (ICD-10-PCS; 2020-09-21)
PROC: XW033E5 Introduction of Remdesivir Anti-infective into Peripheral Vein, Percutaneous Approach, New Technology Group 5 (ICD-10-PCS; principal; 2020-09-23)
PROC: XW13325 Transfusion of Convalescent Plasma (Nonautologous) into Peripheral Vein, Percutaneous Approach, New Technology Group 5 (ICD-10-PCS; 2020-09-26)
PROC: 5A09357 Assistance with Respiratory Ventilation, Less than 24 Consecutive Hours, Continuous Positive Airway Pressure (ICD-10-PCS; 2020-09-26)
DX: A41.89 Other specified sepsis (principal); U07.1 COVID-19; J12.89 Other viral pneumonia; G92 Toxic encephalopathy; J96.01 Acute respiratory failure with hypoxia; D61.818 Other pancytopenia; G45.9 Transient cerebral ischemic attack, unspecified; D75.89 Other specified diseases of blood and blood-forming organs; E11.65 Type 2 diabetes mellitus with hyperglycemia; Z79.84 Long term (current) use of oral hypoglycemic drugs; T38.0X5A Adverse effect of glucocorticoids and synthetic analogues, initial encounter; E53.8 Deficiency of other specified B group vitamins; E66.9 Obesity, unspecified; E78.5 Hyperlipidemia, unspecified; G83.11 Monoplegia of lower limb affecting right dominant side; R29.810 Facial weakness; I48.0 Paroxysmal atrial fibrillation; I45.10 Unspecified right bundle-branch block; I11.9 Hypertensive heart disease without heart failure; I34.0 Nonrheumatic mitral (valve) insufficiency; J32.0 Chronic maxillary sinusitis; M19.90 Unspecified osteoarthritis, unspecified site; R32 Unspecified urinary incontinence; Z91.81 History of falling; Z68.36 Body mass index [BMI] 36.0-36.9, adult; Z79.82 Long term (current) use of aspirin; Z79.899 Other long term (current) drug therapy; Z79.01 Long term (current) use of anticoagulants; Z87.891 Personal history of nicotine dependence; Z90.49 Acquired absence of other specified parts of digestive tract; Z80.49 Family history of malignant neoplasm of other genital organs; R79.89 Other specified abnormal findings of blood chemistry; R79.1 Abnormal coagulation profile
CPT/HCPCS: 36415; 36430; 70450; 70496; 70498; 70551; 71045; 71275; 80048; 80053; 80061; 82550; 82607; 82728; 82746; 82747; 82784; 83010; 83540; 83550; 83605; 83615; 83735; 83883; 83921; 84145; 84165; 84443; 84484; 85025; 85027; 85045; 85379; 85610; 85730; 86038; 86039; 86140; 86334; 86431; 86850; 86900; 86901; 86920; 87040; 87086; 87502; 87635; 93005; 93306; 94640; 94660; 94760; 96361; 96365; 96366; 96372; 96375; 99285

== ENCOUNTER 2020-10-22 22:27 | Observation (INO) | payer BC ==
--- NOTE | 2020-10-22 22:38 | ED ---
General Adult HPI <Vivienne Lopez - Last Filed: 10/24/20 13:13> - General Source: patient Mode of arrival: EMS Limitations: no limitations - History of Present Illness Onset/Timin -: days(s) Location: abdomen Quality: dull Consistency: constant Improves with: none Worsens with: none Associated Symptoms: other (Urinary retention) Treatments Prior to Arrival: none <Bakari Wyatt - Last Filed: 10/26/20 06:59> - General Stated complaint: catheter issue Time Seen by Provider: 10/22/20 22:29 - History of Present Illness Initial comments: 's patient is a 60-year-old man sent here from [facility] for suspected urinary retention. The patient stated that he had been having the urge to urinate going on all day, but is only able to pass a few dribbles of urine. He denies any associated systemic symptoms, no fever or chills, chest pain, dyspnea, palpitations, diaphoresis. Patient denies abdominal pain but states there is some discomfort over the bladder. No back pain. No testicular mass or pain. No leg pain or swelling. (Bakari Wyatt) - Related Data Home Medications Medication Instructions Recorded Confirmed Benazepril HCl [Lotensin] 40 mg PO DAILY@0909/20/20 10/23/20 Metoprolol Tartrate [Lopressor] 50 mg PO DAILY@89909/20/20 10/23/20 amLODIPine [Norvasc] 10 mg PO DAILY@0909/20/20 10/23/20 Apixaban [Eliquis] 5 mg PO BID@09,209910/23/20 10/23/20 Ascorbic Acid [Vitamin C] 500 mg PO DAILY@89910/23/20 10/23/20 Atorvastatin [Lipitor] 40 mg PO HS@209910/23/20 10/23/20 Calcium Carbonate/Vitamin D3 1 tab PO BID@899,209910/23/20 10/23/20 [Calcium 500-Vit D3 200 Tablet] Folic Acid 1 mg PO DAILY@89910/23/20 10/23/20 Zinc Sulfate [Orazinc] 220 mg PO DAILY@0910/23/20 10/23/20 metFORMIN HCL [Glucophage] 500 mg PO BID@0900,1700 10/23/20 10/23/20 Previous Rx's Medication Instructions Recorded Pantoprazole [Protonix] 40 mg PO AC-BRKFST tablet. 10/02/20 Hydrocodone/Acetaminophen [[place] 1 - 2 each PO Q4HR PRN #10 tab 10/23/20 5-325] Allergies Allergy/AdvReac Type Severity Reaction Status Date / Time No Known Allergies Allergy Verified 09/20/20 12:44 Review of Systems ROS Other: All systems not noted in ROS Statement are negative. <Vivienne Lopez - Last Filed: 10/24/20 13:13> ROS Other: All systems not noted in ROS Statement are negative. Constitutional: Denies: fever, chills Respiratory: Denies: cough, dyspnea Cardiovascular: Denies: chest pain, palpitations Gastrointestinal: Reports: as per HPI. Denies: abdominal pain, nausea, vomiting, diarrhea, constipation Genitourinary: Reports: urgency, frequency. Denies: dysuria, hematuria, testicular pain, testicular mass Musculoskeletal: Denies: back pain Skin: Denies: rash Neurological: Denies: headache, weakness <Bakari Wyatt - Last Filed: 10/26/20 06:59> ROS Statement: Those systems with pertinent positive or pertinent negative responses have been documented in the HPI. Past Medical History Past Medical History: Diabetes Mellitus, Hyperlipidemia, Hypertension Additional Past Medical History / Comment(s): anemia History of Any Multi-Drug Resistant Organisms: None Reported Past Surgical History: Appendectomy, Orthopedic Surgery Past Anesthesia/Blood Transfusion Reactions: No Reported Reaction Past Psychological History: No Psychological Hx Reported Smoking Status: Former smoker Past Alcohol Use History: None Reported Past Drug Use History: Marijuana - Past Family History Mother Additional Family Medical History / Comment(s): uterine cancer <Bakari Wyatt - Last Filed: 10/26/20 06:59> General Exam General appearance: alert, in no apparent distress Head exam: Present: atraumatic, normocephalic Eye exam: Present: normal appearance. Absent: scleral icterus, conjunctival injection ENT exam: Present: normal oropharynx Respiratory exam: Present: normal lung sounds bilaterally. Absent: respiratory distress, wheezes, rales, rhonchi, stridor Cardiovascular Exam: Present: regular rate, normal rhythm, normal heart sounds. Absent: systolic murmur, diastolic murmur, rubs, gallop GI/Abdominal exam: Present: soft. Absent: distended, tenderness, guarding, rebound, rigid, mass exam: Present: vertical testicular lie, other (There is phimosis, with orifice of 4-5 mm, unable to visualize the glans or the urethra.). Absent: testicular tenderness, scrotal swelling, circumcision Extremities exam: Present: normal inspection, normal capillary refill. Absent: pedal edema, calf tenderness Back exam: Present: normal inspection. Absent: CVA tenderness (R), CVA tenderness (L) Neurological exam: Present: alert Skin exam: Present: warm, dry, intact, normal color. Absent: rash <Bakari Wyatt - Last Filed: 10/26/20 06:59> Course <Bakari Wyatt - Last Filed: 10/26/20 06:59> Vital Signs 10/22/20 10/22/20 10/22/20 22:57 23:30 23:56 Temperature 98.0 F Pulse Rate 101 H 101 H 101 H Respiratory 16 12 16 Rate Blood Pressure 164/94 145/91 150/99 O2 Sat by Pulse 98 98 98 Oximetry 10/23/20 10/23/20 10/23/20 00:02 01:01 03:03 Temperature Pulse Rate 91 94 100 Respiratory 16 18 18 Rate Blood Pressure 162/102 144/98 179/105 O2 Sat by Pulse 99 99 98 Oximetry 10/23/20 10/23/20 10/23/20 03:30 04:00 04:59 Temperature Pulse Rate 98 100 92 Respiratory 18 18 18 Rate Blood Pressure 155/68 157/98 164/99 O2 Sat by Pulse 98 100 99 Oximetry 10/23/20 10/23/20 10/23/20 05:19 06:00 07:41 Temperature Pulse Rate 81 83 90 Respiratory 18 18 16 Rate Blood Pressure 153/79 138/89 165/96 O2 Sat by Pulse 98 98 100 Oximetry 10/23/20 10/23/20 08:58 10:16 Temperature 98 F 98 F Pulse Rate 84 90 Respiratory 16 16 Rate Blood Pressure 156/97 158/97 O2 Sat by Pulse 99 99 Oximetry - Reevaluation(s) Reevaluation #1: 10/22/20 23:[address] Lam, the urologist on-call, and will perform dorsal slit to expose the glans and facilitate David cath placement. (Bakari Wyatt) Reevaluation #2: 10/23/20 01:00 I did make a dorsal slit to enlarge exposure, and we were able to visualize the urethral meatus however not able to pass a David catheter. I did contact Dr. Guevara and the patient will be seen by urology here. (Bakari Wyatt) Medical Decision Making <Vivienne Lopez - Last Filed: 10/24/20 13:13> - Medical Decision Making Dr. Allison presented to the emergency department at 9:15 am. Patient evaluate and it was determined that the patient would need to be taken to the operating room for circumcision revision. Admission orders placed to Dr. Allison (Vivienne Lopez) Disposition Is patient prescribed a controlled substance at d/c from ED?: No Decision to Admit Reason: Admit from EC Decision Date: 10/23/20 Decision Time: 09:43 <Vivienne Lopez - Last Filed: 10/24/20 13:13> <Bakari Wyatt - Last Filed: 10/26/20 06:59> Clinical Impression: Urinary retention Disposition: ADMITTED IP TO THIS [facility] Condition: Good
[2020-10-22] MEDS ORDERED: DIAZEPAM 5 MG/ML 2 ML INJ IVP STA (23:02)
[2020-10-22] MEDS ORDERED: LIDOCAINE 1% INJ 10MG/ML (20 ML MDV) SQ ONE (23:02)
[2020-10-23] MEDS ORDERED: MORPHINE SULFATE 4 MG/ML SYRINGE IV STA (00:51)
[2020-10-23] MEDS ORDERED: DIAZEPAM 5 MG/ML 2 ML INJ IVP STA ×2 (01:05→05:41)
[2020-10-23] MEDS ORDERED: ENALAPRILAT 1.25 MG/ML 1 ML VIAL IVP STA (02:42)
[2020-10-23] MEDS: GELATIN SPONGE,ABSORB (SMALL) 1 EACH SPONGE TOPICAL STA (03:02)
[2020-10-23] MEDS ORDERED: LABETALOL 5 MG/ML VIAL MDV IVP STA (04:45)
[2020-10-23] MEDS ORDERED: NALOXONE 0.4 MG/ML 1 ML VIAL IV PRN (09:43)
[2020-10-23] MEDS ORDERED: amLODIPine 10 MG TAB PO STA (10:11)
[2020-10-23] MEDS ORDERED: METOPROLOL TARTRATE 50 MG TAB PO STA (10:11)
[2020-10-23] MEDS ORDERED: lisinopriL 20 MG TAB PO STA (10:12)
--- NOTE | 2020-10-23 10:36 | P.GSHP ---
History of Present Illness H&P Date: 10/23/20 Chief Complaint: Inability to void The patient is a 60-year-old white male hospitalized in early September with COVID-19 pneumonia. For the past several days, he has experienced difficulty voiding and presented to the emergency room. He is circumcised, but the foreskin has closed over the glans penis such that the urethral meatus cannot be seen. - Constitutional Constitutional: Denies chills, Denies fever - Cardiovascular Cardiovascular: Denies chest pain - Respiratory Respiratory: Denies dyspnea - Genitourinary (Male) Genitourinary: Reports as per HPI Past Medical History Past Medical History: Diabetes Mellitus, Hyperlipidemia, Hypertension Additional Past Medical History / Comment(s): anemia History of Any Multi-Drug Resistant Organisms: None Reported Past Surgical History: Appendectomy, Orthopedic Surgery Past Anesthesia/Blood Transfusion Reactions: No Reported Reaction Past Psychological History: No Psychological Hx Reported Smoking Status: Former smoker Past Alcohol Use History: None Reported Past Drug Use History: Marijuana - Past Family History Mother Additional Family Medical History / Comment(s): uterine cancer Medications and Allergies Home Medications Medication Instructions Recorded Confirmed Type Benazepril HCl [Lotensin] 40 mg PO DAILY@89909/20/20 10/23/20 History Metoprolol Tartrate [Lopressor] 50 mg PO DAILY@89909/20/20 10/23/20 History amLODIPine [Norvasc] 10 mg PO DAILY@89909/20/20 10/23/20 History Pantoprazole [Protonix] 40 mg PO AC-BRKFST tablet. 10/02/20 10/23/20 Rx Apixaban [Eliquis] 5 mg PO BID@09,209910/23/20 10/23/20 History Ascorbic Acid [Vitamin C] 500 mg PO DAILY@89910/23/20 10/23/20 History Atorvastatin [Lipitor] 40 mg PO HS@209910/23/20 10/23/20 History Calcium Carbonate/Vitamin D3 1 tab PO BID@0900,209910/23/20 10/23/20 History [Calcium 500-Vit D3 200 Tablet] Folic Acid 1 mg PO DAILY@89910/23/20 10/23/20 History Zinc Sulfate [Orazinc] 220 mg PO DAILY@89910/23/20 10/23/20 History metFORMIN HCL [Glucophage] 500 mg PO BID@0900,1700 10/23/20 10/23/20 History Allergies Allergy/AdvReac Type Severity Reaction Status Date / Time No Known Allergies Allergy Verified 09/20/20 12:44 Surgical - Exam Vital Signs Temp Pulse Resp BP Pulse Ox 98.0 F 101 H 16 164/94 98 10/22/20 22:57 10/22/20 22:57 10/22/20 22:57 10/22/20 22:57 10/22/20 22:57 - General well developed, well nourished, no distress - Respiratory normal respiratory effort - Abdomen Soft, non-tender, with no palpable mass. - Genitourinary The penis is circumcised. Foreskin has grown over the glans penis. The foreskin opening is small. The scrotum is normal. - Psychiatric oriented to time, oriented to person, oriented to place, speech is normal, memory intact Assessment and Plan (1) Phimosis Current Visit: Yes Status: Acute Code(s): N47.1 - PHIMOSIS SNOMED Code(s): 803128460 (2) Urinary retention Current Visit: Yes Status: Acute Code(s): R33.9 - RETENTION OF URINE, UNSPECIFIED SNOMED Code(s): 310991368 Plan: The penis was prepped and draped sterilely. 2% lidocaine was injected subcutaneously circumferentially around the foreskin opening. Midline ventral and dorsal slits were made. Some edema of the preputial skin was noted. It was possible to palpate the tip of the glans penis. Adhesions to the foreskin were noted to be quite dense. In view of this, it was decided that the patient would require that the procedure be completed under anesthesia. Plan is to exte nd the dorsal and/or ventral slits enough to better expose the glans penis. It will likely be necessary to take down adhesions from the preputial skin to the glans penis in order to expose the urethral meatus and place a David catheter. An internal urethrotomy may be required. If this is unsuccessful, he will require open placement of a suprapubic cystostomy tube. All of this has been reviewed in detail with the patient. He has been made aware of potential risks, which include anesthesia, bleeding, infection, and recurrent phimosis. Time with Patient: Greater than 30
[2020-10-23 11:56] LABS: Glucose,Whole Blood 149 mg/dL (75-99)
[2020-10-23] MEDS ORDERED: PROPOFOL 10 MG/ML 20 ML VIAL IV ONE (12:10)
[2020-10-23] MEDS ORDERED: ePHEDrine SULFATE/0.9% NACL/PF 50 MG/5 ML SYRINGE IV ONE (12:10)
[2020-10-23] MEDS ORDERED: WATER FOR INJECTION, STERILE 10 ML VIAL IV ONE (12:10)
[2020-10-23] MEDS ORDERED: LIDOCAINE 1% INJ 10MG/ML (20 ML MDV) ONE (12:10)
[2020-10-23] MEDS ORDERED: fentaNYL (PF) 50 MCG/ML 2 ML AMP ONE (12:10)
[2020-10-23] MEDS ORDERED: IV FLUID CONTINUATION 1,000 ML IV ONE (12:14)
[2020-10-23] MEDS ORDERED: BUPIVACAINE (PF) 0.25% 30 ML VIAL SQ ONE ×2 (12:38)
[2020-10-23] MEDS ORDERED: LACTATED RINGERS 1,000 ML IV ONE (13:16)
[2020-10-23] MEDS ORDERED: HYDROmorphone 0.5 MG/0.5 ML SYRINGE IVP ONE (13:34)
[2020-10-23] MEDS ORDERED: KETOROLAC 15 MG/ML 1 ML VIAL IVP ONE (13:34)
[2020-10-23] MEDS ORDERED: ONDANSETRON 4 MG/2 ML VIAL IVP ONE (13:34)
[2020-10-23 13:36] LABS: Glucose,Whole Blood 124 mg/dL (75-99)
[2020-10-23] MEDS: HYDROmorphone 1 MG/ML 1 ML SYRINGE IVP ONE ×2 (13:39→13:45)
--- NOTE | 2020-10-23 13:50 | P.OP ---
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 For the past several days, he has experienced difficulty voiding and presented to the emergency room. He is circumcised, but the foreskin has closed over the glans penis such that the urethral meatus cannot be seen. Operative Findings: Previously circumcised phallus with foreskin scarred over the glans penis, leaving only a small opening. The urethral meatus was diminished in caliber. Approximately 1500 mL of urine was drained from the bladder. Description of Procedure: The patient was taken to the operating room and placed in the dorsolithotomy position. The external genitalia and lower abdomen were prepped and draped sterilely. The bladder was distended up to the umbilicus. The tight phimotic ring was clamped in the midline ventrally and dorsally. This tissue was then incised, ultimately allowing retraction of the foreskin. The glans penis appeared normal, though the urethral meatus was diminished in caliber. The glans penis was cleaned with Betadine solution. Subcutaneous bleeders were controlled with electrocautery. Markedly diminished penile skin was noted. It was decided to close both the dorsal and ventral skin defects transversely. 3-0 Vicryl and 3-0 chromic sutures were placed alternately in simple interrupted fashion. A hemostat was placed into the urethral meatus, and gently spread to open the urethral meatus to an adequate size. Cystoscopy was then performed using the 16-Chinese flexible cystoscope. The anterior urethra appeared normal. The prostatic urethra was partially obstructed by a high median bar. The bladder was very distended, making visualization of the entire bladder difficult. However, the majority of the bladder was inspected and appeared normal. Mild trabeculation of the bladder was noted. There were no diverticuli, calculi, or tumors seen. The cystoscope was removed. A 16-Chinese David catheter was placed, with return of approximately 1500 mL of urine. Bacitracin ointment was applied to the penile incisions, and surgical fluffs were placed over the penis, followed by scrotal support. All sponge and needle counts were correct. The patient tolerated the procedure well was taken to the recovery room stable condition.
[2020-10-23] MEDS: metFORMIN 500 MG TAB PO SCH (16:44)
[2020-10-23] MEDS: APIXABAN 5 MG TAB PO SCH (20:19)
[2020-10-23] MEDS: CALCIUM CARB-VIT D 500MG-200UN 1 EACH TAB PO SCH (20:19)
[2020-10-23] MEDS: ATORVASTATIN 40 MG TAB PO SCH (20:19)
[2020-10-23] MEDS ORDERED: HYDROcodone/APAP 5-325MG 1 EACH TAB PO PRN (20:46)
[2020-10-23] MEDS: HYDROcodone/APAP 5-325MG 1 EACH TAB PO PRN (20:54)
[2020-10-24] MEDS: CALCIUM CARB-VIT D 500MG-200UN 1 EACH TAB PO SCH ×2 (08:08→20:58)
[2020-10-24] MEDS: APIXABAN 5 MG TAB PO SCH ×2 (08:08→20:59)
[2020-10-24] MEDS: ASCORBIC ACID 500 MG TAB PO SCH (08:08)
[2020-10-24] MEDS: HYDROcodone/APAP 5-325MG 1 EACH TAB PO PRN ×2 (08:08→20:58)
[2020-10-24] MEDS: lisinopriL 20 MG TAB PO SCH (08:08)
[2020-10-24] MEDS: FOLIC ACID 1 MG TAB PO SCH (08:09)
[2020-10-24] MEDS: METOPROLOL TARTRATE 50 MG TAB PO SCH (08:09)
[2020-10-24] MEDS: PANTOPRAZOLE 40 MG TABLET PO SCH (08:09)
[2020-10-24] MEDS: amLODIPine 10 MG TAB PO SCH (08:09)
[2020-10-24] MEDS: metFORMIN 500 MG TAB PO SCH ×2 (08:09→17:10)
[2020-10-24] MEDS: ZINC SULFATE 220 MG CAP PO SCH (08:09)
--- NOTE | 2020-10-24 12:16 | P.DS ---
Providers Date of admission: 10/23/20 09:43 Expected date of discharge: 10/24/20 Attending physician: Shen Allison Primary care physician: Prince Colinvi - Discharge Diagnosis(es) (1) Phimosis Current Visit: Yes Status: Acute (2) Urinary retention Current Visit: Yes Status: Acute Hospital Course: The patient presented to the emergency room in urinary retention. He was previously circumcised but the foreskin has essentially closed shut over the glans penis, such that the urethral meatus could not be visualized. Despite a dorsal slit in the emergency room, attempts at David catheter placement were unsuccessful. Therefore, he was taken to the operating room. Dorsal and ventral slits were made to allow the foreskin to be retracted. There was a lack of penile skin, so skin closure was performed in a suboptimal way. A David catheter was placed, with return of approximately 1500 mL of urine. Arrangements could not be made for him to be transferred back to [facility] on the [place] postoperatively, and therefore he was hospitalized overnight. On the first postoperative day, he reported mild incisional discomfort but his primary complaint was constipation. The incisions were clean and dry. The David catheter was draining clear yellow urine. He is to be transferred back to [facility] on the [place] upon discharge. He will receive a Dulcolax suppository for the constipation. Procedures: Revision of circumcision, cystoscopy with David catheter insertion on 10/23/2020 Patient Condition at Discharge: Good Plan - Discharge Summary Discharge Rx Participant: No New Discharge Prescriptions: New Hydrocodone/Acetaminophen [[place] 5-325] 1 - 2 each PO Q4HR PRN #10 tab PRN Reason: Pain No Action Metoprolol Tartrate [Lopressor] 50 mg PO DAILY@0900 Benazepril HCl [Lotensin] 40 mg PO DAILY@0900 amLODIPine [Norvasc] 10 mg PO DAILY@0900 Pantoprazole [Protonix] 40 mg PO AC-BRKFST tablet. metFORMIN HCL [Glucophage] 500 mg PO BID@0900,1700 Ascorbic Acid [Vitamin C] 500 mg PO DAILY@0900 Zinc Sulfate [Orazinc] 220 mg PO DAILY@0900 Folic Acid 1 mg PO DAILY@0900 Calcium Carbonate/Vitamin D3 [Calcium 500-Vit D3 200 Tablet] 1 tab PO BID@0900,2100 Atorvastatin [Lipitor] 40 mg PO HS@2100 Apixaban [Eliquis] 5 mg PO BID@0900,2099 Discharge Medication List Benazepril HCl [Lotensin] 40 mg PO DAILY@0900 09/20/20 [History] Metoprolol Tartrate [Lopressor] 50 mg PO DAILY@0900 09/20/20 [History] amLODIPine [Norvasc] 10 mg PO DAILY@0900 09/20/20 [History] Pantoprazole [Protonix] 40 mg PO AC-BRKFST tablet. 10/02/20 [Rx] Apixaban [Eliquis] 5 mg PO BID@0900,209910/23/20 [History] Ascorbic Acid [Vitamin C] 500 mg PO DAILY@0910/23/20 [History] Atorvastatin [Lipitor] 40 mg PO HS@209910/23/20 [History] Calcium Carbonate/Vitamin D3 [Calcium 500-Vit D3 200 Tablet] 1 tab PO BID@0900,209910/23/20 [History] Folic Acid 1 mg PO DAILY@0910/23/20 [History] Hydrocodone/Acetaminophen [[place] 5-325] 1 - 2 each PO Q4HR PRN #10 tab 10/23/20 [Rx] Zinc Sulfate [Orazinc] 220 mg PO DAILY@0910/23/20 [History] metFORMIN HCL [Glucophage] 500 mg PO BID@0900,1700 10/23/20 [History] Follow up Appointment(s)/Referral(s): Prince Vicente MD [Primary Care Provider] - 1-2 days Shen Allison MD [STAFF PHYSICIAN] - 1 Week Activity/Diet/Wound Care/Special Instructions: Transfer to [facility] with David catheter in place. Okay to shower on 10/25/2020. Diet as tolerated. Activity as tolerated. Resume preoperative medications. Discharge Disposition: TRANSFER TO SNF/ECF
[2020-10-24] MEDS ORDERED: bisacodyL 10 MG SUPP RECTAL PRN (12:17)
[2020-10-24] MEDS: ATORVASTATIN 40 MG TAB PO SCH (20:58)
[2020-10-24] MEDS ORDERED: MAGNESIUM HYDROXIDE 2,400 MG/10 ML CUP PO PRN (21:53)
[2020-10-25] MEDS: PANTOPRAZOLE 40 MG TABLET PO SCH (07:52)
[2020-10-25] MEDS: CALCIUM CARB-VIT D 500MG-200UN 1 EACH TAB PO SCH ×2 (07:52→20:56)
[2020-10-25] MEDS: FOLIC ACID 1 MG TAB PO SCH (07:52)
[2020-10-25] MEDS: amLODIPine 10 MG TAB PO SCH (07:52)
[2020-10-25] MEDS: lisinopriL 20 MG TAB PO SCH (07:52)
[2020-10-25] MEDS: ASCORBIC ACID 500 MG TAB PO SCH (07:52)
[2020-10-25] MEDS: metFORMIN 500 MG TAB PO SCH ×2 (07:52→18:14)
[2020-10-25] MEDS: APIXABAN 5 MG TAB PO SCH ×2 (07:53→20:56)
[2020-10-25] MEDS: ZINC SULFATE 220 MG CAP PO SCH (07:53)
[2020-10-25] MEDS: HYDROcodone/APAP 5-325MG 1 EACH TAB PO PRN ×3 (07:53→18:14)
[2020-10-25] MEDS: METOPROLOL TARTRATE 50 MG TAB PO SCH (07:53)
[2020-10-25] MEDS ORDERED: NA PHOS,M-B/NA PHOS,DI-BA 133 ML ENEMA RECTAL ONE (10:10)
[2020-10-25] MEDS ORDERED: MAGNESIUM HYDROXIDE 2,400 MG/10 ML CUP PO PRN (10:10)
--- NOTE | 2020-10-25 10:12 | P.PN ---
Progress Note - Text Progress Note Date: 10/25/20 I was advised yesterday that the patient cannot be transferred back to [facility] [place] the [place] until tomorrow. His David catheter continues to drain clear yellow urine. He is afebrile with stable vital signs. The penile incisions are clean and dry. The patient reports persistent constipation despite her to collect suppository and milk of magnesia. Both are available today upon his request, and he will be given a fleets enema.
[2020-10-25] MEDS: DOCUSATE 100 MG CAP PO SCH ×2 (11:00→20:57)
[2020-10-25] MEDS: ATORVASTATIN 40 MG TAB PO SCH (20:56)
[2020-10-26] MEDS: HYDROcodone/APAP 5-325MG 1 EACH TAB PO PRN ×5 (04:47→22:10)
[2020-10-26] MEDS: PANTOPRAZOLE 40 MG TABLET PO SCH (08:43)
[2020-10-26] MEDS: CALCIUM CARB-VIT D 500MG-200UN 1 EACH TAB PO SCH ×2 (08:44→21:08)
[2020-10-26] MEDS: amLODIPine 10 MG TAB PO SCH (08:44)
[2020-10-26] MEDS: APIXABAN 5 MG TAB PO SCH ×2 (08:44→21:08)
[2020-10-26] MEDS: ASCORBIC ACID 500 MG TAB PO SCH (08:44)
[2020-10-26] MEDS: metFORMIN 500 MG TAB PO SCH ×2 (08:45→16:54)
[2020-10-26] MEDS: METOPROLOL TARTRATE 50 MG TAB PO SCH (08:45)
[2020-10-26] MEDS: FOLIC ACID 1 MG TAB PO SCH (08:45)
[2020-10-26] MEDS: DOCUSATE 100 MG CAP PO SCH ×2 (08:45→21:08)
[2020-10-26] MEDS: lisinopriL 20 MG TAB PO SCH (08:45)
[2020-10-26] MEDS: ZINC SULFATE 220 MG CAP PO SCH (08:46)
[2020-10-26] MEDS: ATORVASTATIN 40 MG TAB PO SCH (21:08)
[2020-10-27 07:44] VITALS: BP 170/89; PULSE 100; RESP 19; TEMP 98.4
[2020-10-27] MEDS: APIXABAN 5 MG TAB PO SCH (07:57)
[2020-10-27] MEDS: FOLIC ACID 1 MG TAB PO SCH (07:57)
[2020-10-27] MEDS: CALCIUM CARB-VIT D 500MG-200UN 1 EACH TAB PO SCH (07:57)
[2020-10-27] MEDS: ZINC SULFATE 220 MG CAP PO SCH (07:57)
[2020-10-27] MEDS: amLODIPine 10 MG TAB PO SCH (07:57)
[2020-10-27] MEDS: PANTOPRAZOLE 40 MG TABLET PO SCH (07:57)
[2020-10-27] MEDS: ASCORBIC ACID 500 MG TAB PO SCH (07:57)
[2020-10-27] MEDS: METOPROLOL TARTRATE 50 MG TAB PO SCH (07:58)
[2020-10-27] MEDS: DOCUSATE 100 MG CAP PO SCH ×2 (07:58→13:06)
[2020-10-27] MEDS: metFORMIN 500 MG TAB PO SCH (07:58)
[2020-10-27] MEDS: lisinopriL 20 MG TAB PO SCH (07:58)
[2020-10-27] MEDS: HYDROcodone/APAP 5-325MG 1 EACH TAB PO PRN ×2 (07:58→13:06)
== END 2020-10-27 14:17 ==
LOC: EC 22:27 → 4SSUR 10-23 09:43
PROVIDERS: ADMIT Urology; ATTEND Urology
DX: N47.1 Phimosis (principal); R33.9 Retention of urine, unspecified; N48.0 Leukoplakia of penis; E11.9 Type 2 diabetes mellitus without complications; E78.5 Hyperlipidemia, unspecified; I48.91 Unspecified atrial fibrillation; K21.9 Gastro-esophageal reflux disease without esophagitis; I10 Essential (primary) hypertension; K59.00 Constipation, unspecified; D64.9 Anemia, unspecified; Z90.89 Acquired absence of other organs; Z87.891 Personal history of nicotine dependence; Z86.19 Personal history of other infectious and parasitic diseases; Z80.49 Family history of malignant neoplasm of other genital organs; Z79.01 Long term (current) use of anticoagulants; Z79.84 Long term (current) use of oral hypoglycemic drugs; Z79.899 Other long term (current) drug therapy
CPT/HCPCS: 54162; 99285; 51798; 94760; 97162; 97535; 97166; G0378 ×5; J3360 ×2; J0690; J2405; J2001 ×2; J3010; J1170 ×2; J1885; J2704

== ENCOUNTER 2020-11-05 15:37 | Emergency (ER) | payer BC ==
[2020-11-05 15:44] VITALS: RESP 18; TEMP 98.6
--- NOTE | 2020-11-05 16:00 | ED ---
General Adult HPI - General Chief complaint: Back Pain/Injury Stated complaint: Abd Pain Time Seen by Provider: 11/05/20 15:43 Source: patient, EMS Mode of arrival: EMS Limitations: physical limitation - History of Present Illness Initial comments: Dictation was produced using [employer] dictation software. please excuse any grammatical, word or spelling errors. This patient was cared for during a federal and state declared state of emergency secondary to Covid 19 Chief Complaint: 60-year-old male transferred from [facility] for rectal pain History of Present Illness: A 60-year-old male who is transferred from [facility] on the [facility]rehab facility for rectal pain. Patient states she's been having rectal pain for the last her for days. He's been having soft stools. States that the pain is to his rectum. No nausea or vomiting. Denies any abdominal pain. Patient states that he is currently at [facility] for physical rehabilitation. He was recently admitted for: The ROS documented in this emergency department record has been reviewed and confirmed by me. Those systems with pertinent positive or negative responses have been documented in the HPI. All other systems are other negative and/or noncontributory. PHYSICAL EXAM: General Impression: Alert and oriented x3, not in acute distress HEENT: Normocephalic atraumatic, extra-ocular movements intact, pupils equal and reactive to light bilaterally, mucous membranes moist. Cardiovascular: Heart regular rate and rhythm Chest: Able to complete full sentences, no retractions, no tachypnea Abdomen: abdomen soft, non-tender, non-distended, no organomegaly Musculoskeletal: Pulses present and equal in all extremities, no peripheral edema Motor: no focal deficits noted Neurological: CN II-XII grossly intact, no focal motor or sensory deficits noted Skin: Intact with no visualized rashes Psych: Normal affect and mood Rectal exam: Mild skin breakdown at the anus, digital rectal exam reveals multiple hard stools. ED course: 60-year-old male presents to the emergency department for chief complaint of rectal pain. Vital signs upon arrival is within acceptable limits. Patient's clinical presentation consistent with constipation. He'll rectal disimpaction was performed with removal of several months of hard stools. Patient tolerated procedure well. Laboratory evaluation shows leukocytosis of 11.0. This is around his baseline. Hemoglobin is 9.5 which is around his baseline. Rest of labs are at baseline. Abdominal x-ray shows moderate stool burden. Patient reevaluated bedside at approximate 4:49 PM and found to be stable medical condition. Patient be discharged. Patient given prescription for MiraLAX. - Related Data Home Medications Medication Instructions Recorded Confirmed Benazepril HCl [Lotensin] 40 mg PO DAILY@0900 09/20/20 10/23/20 Metoprolol Tartrate [Lopressor] 50 mg PO DAILY@89909/20/20 10/23/20 amLODIPine [Norvasc] 10 mg PO DAILY@0909/20/20 10/23/20 Apixaban [Eliquis] 5 mg PO BID@0900,209910/23/20 10/23/20 Ascorbic Acid [Vitamin C] 500 mg PO DAILY@0910/23/20 10/23/20 Atorvastatin [Lipitor] 40 mg PO HS@209910/23/20 10/23/20 Calcium Carbonate/Vitamin D3 1 tab PO BID@0900,209910/23/20 10/23/20 [Calcium 500-Vit D3 200 Tablet] Folic Acid 1 mg PO DAILY@0900 10/23/20 10/23/20 Zinc Sulfate [Orazinc] 220 mg PO DAILY@0900 10/23/20 10/23/20 metFORMIN HCL [Glucophage] 500 mg PO BID@0900,1700 10/23/20 10/23/20 Previous Rx's Medication Instructions Recorded Pantoprazole [Protonix] 40 mg PO AC-BRKFST tablet. 10/02/20 Hydrocodone/Acetaminophen [[place] 1 - 2 each PO Q4HR PRN #10 tab 10/23/20 5-325] polyethylene glycoL 3350 [Miralax] 17 gm PO DAILY 2 Days #2 packet 11/05/20 Allergies Allergy/AdvReac Type Severity Reaction Status Date / Time No Known Allergies Allergy Verified 11/05/20 15:44 Review of Systems ROS Statement: Those systems with pertinent positive or pertinent negative responses have been documented in the HPI. ROS Other: All systems not noted in ROS Statement are negative. Past Medical History Past Medical History: Diabetes Mellitus, Hyperlipidemia, Hypertension Additional Past Medical History / Comment(s): anemia History of Any Multi-Drug Resistant Organisms: None Reported Past Surgical History: Appendectomy, Orthopedic Surgery Past Anesthesia/Blood Transfusion Reactions: No Reported Reaction Past Psychological History: No Psychological Hx Reported Smoking Status: Former smoker Past Alcohol Use History: None Reported Past Drug Use History: Marijuana - Past Family History Mother Additional Family Medical History / Comment(s): uterine cancer General Exam Limitations: physical limitation Course Vital Signs 11/05/20 15:39 Temperature 98.6 F Pulse Rate 86 Respiratory 18 Rate Blood Pressure 138/81 O2 Sat by Pulse 95 Oximetry Medical Decision Making - Lab Data Result diagrams: 11/05/20 16:18 11/05/20 16:18 Lab Results 11/05/20 11/05/20 Range/Units 16:18 16:18 WBC 11.0 H (3.8-10.6) k/uL RBC 3.05 L (4.30-5.90) m/uL Hgb 9.5 L (13.0-17.5) gm/dL Hct 29.1 L (39.0-53.0) % MCV 95.4 (80.0-100.0) fL MCH 31.1 (25.0-35.0) pg MCHC 32.6 (31.0-37.0) g/dL RDW 17.0 H (11.5-15.5) % Plt Count 477 H (150-450) k/uL MPV 6.9 Neutrophils % 73 % Lymphocytes % 15 % Monocytes % 5 % Eosinophils % 4 % Basophils % 2 % Neutrophils # 8.1 H (1.3-7.7) k/uL Lymphocytes # 1.6 (1.0-4.8) k/uL Monocytes # 0.6 (0-1.0) k/uL Eosinophils # 0.5 (0-0.7) k/uL Basophils # 0.2 (0-0.2) k/uL Anisocytosis Slight Macrocytosis Slight Sodium 136 L (137-145) mmol/L Potassium 4.2 (3.5-5.1) mmol/L Chloride 105 (98-107) mmol/L Carbon Dioxide 26 (22-30) mmol/L Anion Gap 5 mmol/L BUN 17 (9-20) mg/dL Creatinine 0.60 L (0.66-1.25) mg/dL Est GFR (CKD-EPI)AfAm >90 (>60 ml/min/1.73 sqM) Est GFR (CKD-EPI)NonAf >90 (>60 ml/min/1.73 sqM) Glucose 169 H (74-99) mg/dL Calcium 8.4 (8.4-10.2) mg/dL Disposition Clinical Impression: Constipation Disposition: HOME SELF-CARE Condition: Good Instructions (If sedation given, give patient instructions): Constipation (ED) Prescriptions: polyethylene glycoL 3350 [Miralax] 17 gm PO DAILY 2 Days #2 packet Is patient prescribed a controlled substance at d/c from ED?: No Referrals: Yrn Grider MD [Primary Care Provider] - 1-2 days Time of Disposition: 16:51
[2020-11-05 16:26] LABS: Anisocytosis Slight; Basophils # (A) 0.2 k/uL (0-0.2); Basophils % (A) 2 %; Eosinophils # (A) 0.5 k/uL (0-0.7); Eosinophils % (A) 4 %; HCT 29.1 % (39.0-53.0); HGB 9.5 gm/dL (13.0-17.5); Lymphocytes # (A) 1.6 k/uL (1.0-4.8); Lymphocytes % (A) 15 %; MCH 31.1 pg (25.0-35.0); MCHC 32.6 g/dL (31.0-37.0); MCV 95.4 fL (80.0-100.0); Macrocytosis Slight; Mean Platelet Volume 6.9; Monocytes # (A) 0.6 k/uL (0-1.0); Monocytes % (A) 5 %; Neutrophils # (A) 8.1 k/uL (1.3-7.7); Neutrophils % (A) 73 %; Platelet Count 477 k/uL (150-450); RBC 3.05 m/uL (4.30-5.90)
[2020-11-05 16:35] LABS: African American GFR (CKD) >90 (>60 ml/min/1.73 sqM); Anion Gap 5 mmol/L; Blood Urea Nitrogen 17 mg/dL (9-20); Calcium 8.4 mg/dL (8.4-10.2); Carbon Dioxide 26 mmol/L (22-30); Chloride 105 mmol/L (98-107); Glucose 169 mg/dL (74-99); Non-African American GFR(CKD) >90 (>60 ml/min/1.73 sqM); Potassium 4.2 mmol/L (3.5-5.1); Sodium 136 mmol/L (137-145)
--- NOTE | 2020-11-05 16:43 | XR ---
EXAM: Abdomen radiograph. HISTORY: Rectal pain. TECHNIQUE: Supine AP view. COMPARISON: None. FINDINGS: There are nondilated bowel loops with a nonobstructive pattern. There are no pathologic calcification s. No acute osseous abnormality seen. There is moderate stool burden. IMPRESSION: No acute abnormality. Moderate stool burden.
[2020-11-05 17:15] VITALS: BP 133/82; PULSE 83
== END 2020-11-05 20:05 | disposition home or self-care (01) ==
LOC: EC 15:37
DX: K59.00 Constipation, unspecified (principal); E11.9 Type 2 diabetes mellitus without complications; E78.5 Hyperlipidemia, unspecified; I10 Essential (primary) hypertension; D64.9 Anemia, unspecified; Z79.01 Long term (current) use of anticoagulants; Z79.84 Long term (current) use of oral hypoglycemic drugs; Z79.899 Other long term (current) drug therapy; Z87.891 Personal history of nicotine dependence
CPT/HCPCS: 36415; 74018; 80048; 85025; 99284

== ENCOUNTER 2021-01-29 10:44 | Day surgery (SDC) | payer BC ==
[2021-01-27 09:20] VITALS: BMI 32.4
[~2021-01-29 10:44] MED LIST: SODIUM CHLORIDE 0.9% 1,000 ML IV SCH
[2021-01-29 11:06] LABS: Glucose,Whole Blood 143 mg/dL (75-99)
[2021-01-29] MEDS ORDERED: LIDOCAINE 1% INJ 10MG/ML (20 ML MDV) ONE (11:30)
[2021-01-29] MEDS ORDERED: PROPOFOL 10 MG/ML 20 ML VIAL IV ONE (11:30)
[2021-01-29] MEDS ORDERED: MIDAZOLAM 2 MG/2 ML VIAL ONE (11:30)
[2021-01-29 12:00] LABS: African American GFR (CKD) >90 (>60 ml/min/1.73 sqM); Anion Gap 11 mmol/L; Blood Urea Nitrogen 26 mg/dL (9-20); Calcium 9.8 mg/dL (8.4-10.2); Carbon Dioxide 31 mmol/L (22-30); Chloride 100 mmol/L (98-107); Glucose 147 mg/dL (74-99); Non-African American GFR(CKD) >90 (>60 ml/min/1.73 sqM); Potassium 4.1 mmol/L (3.5-5.1); Sodium 142 mmol/L (137-145)
[2021-01-29 12:05] VITALS: TEMP 97.6
[2021-01-29 12:14] VITALS: RESP 16
[2021-01-29] MEDS ORDERED: SODIUM CHLORIDE 0.9% 1,000 ML IV SCH (12:30)
[2021-01-29 14:07] VITALS: BP 182/88; PULSE 96
--- NOTE | 2021-01-31 06:35 | P.TEE ---
Indications for Procedure(s): Atrial flutter Date of Procedure: 01/29/21 Preoperative Diagnosis: Atrial flutter Postoperative Diagnosis: No clot in the left atrial appendage Description of Procedure(s): This patient is brought in for cardioversion. CHARLY examination is recommended to rule out left atrial clot. Patient was brought in a fasting state. Patient was prepped and draped in the usual fashion. His throat is sprayed with Hurricaine. Department of anesthesia provided brief general anesthesia. A lubricated on the probe was advanced into the esophagus. Multiple views were obtained. Patient tolerated the procedure well. Finding: The aortic valve is tricuspid and functioned normally. Mitral valve showed mitral regurgitatio of mild degree. The left atrial appendage is free of any. The pulmonary venous pattern is normal. The tricuspid valve showed mild to moderate regurgitation. The intra-atrial septum appeared to be . Saline contrast bubble injection did not show any crossing of the bubbles. Color, pulsed and continuous Doppler Studies were performed. Left ventricle function appear to be fair. Final impression: #1. No clot in the left atrial append. Plan: Proceed with cardioversion
--- NOTE | 2021-01-31 06:37 | P.PCN ---
Date of Procedure: 01/29/21 Preoperative Diagnosis: Atrial flutter Postoperative Diagnosis: Successful conversion to sinus rhythm Procedure(s) Performed: CHARLY followed by cardioversion Description of Procedure: This patient was brought in for cardiovers as an outpatient. Patient had a CHARLY, which did not reveal any clot in the left atrial appendage. Patient was given general anesthesia by department of anesthesia. Anterior posterior paddles were applied. A single shock of 200 J was applied. Patient converted back to sinus rhythm. Tolerated the procedure well. No immediate complications. Final impression: #1. Successful cardioversion. Plan: Patient will be monitored for the next . If stable, patient will be discharged home. Patient will continue home medications including anticoagulation. He is also put on flecainide 50 mg to be taken twice daily. Follow-up in the office in 1 week.
== END 2021-01-29 13:53 | disposition home or self-care (01) ==
LOC: CATHCVL 10:44
PROVIDERS: ATTEND Internal Medicine Cardiovascular Disease
DX: I48.3 Typical atrial flutter (principal); I08.1 Rheumatic disorders of both mitral and tricuspid valves; E78.5 Hyperlipidemia, unspecified; I10 Essential (primary) hypertension; E78.00 Pure hypercholesterolemia, unspecified; I48.91 Unspecified atrial fibrillation; Z87.01 Personal history of pneumonia (recurrent); Z86.16 Personal history of COVID-19; E11.9 Type 2 diabetes mellitus without complications; Z82.49 Family history of ischemic heart disease and other diseases of the circulatory system; Z87.891 Personal history of nicotine dependence; Z79.01 Long term (current) use of anticoagulants; Z79.84 Long term (current) use of oral hypoglycemic drugs; Z79.899 Other long term (current) drug therapy
CPT/HCPCS: 93312; 93320; 93325; 92960; 80048; J2250; J2001; J2704